=== PATIENT | female | born 1970 | race Caucasian/White ===

== ENCOUNTER 2016-08-04 01:36 | Inpatient (IN) | payer BC, MEDICAID ==
[2016-08-04] MEDS ORDERED: Sodium Chloride 0.9% 1,000 ML IV ONE ×4 (01:55→13:56)
[2016-08-04] MEDS ORDERED: Sodium Chloride 0.9% 1,000 ML ONE ×2 (02:02→07:59)
[2016-08-04] MEDS ORDERED: Morphine 4 MG/ML VIAL ONE ×2 (02:02→02:47)
[2016-08-04 02:06] LABS: BASO # 0.1 K/uL (0.0-0.2); BASO % 0.6 % (0.0-2.0); EOS # 0.2 K/uL (0.0-0.7); EOS % 1.7 % (0.0-4.0); HEMATOCRIT 39.4 % (34.0-47.0); LYMPH % 27.9 % (20.0-40.0); MEAN CELL VOLUME 84.9 fL (81.0-99.0); MEAN CORPUSCULAR HEMOGLOBIN 28.1 pg (27.0-31.0); MEAN CORPUSCULAR HGB CONC 33.1 g/dL (33.0-37.0); MEAN PLATELET VOLUME 8.9 fL (7.2-11.7); MONO # 0.5 K/uL (0.0-0.8); RED CELL DISTRIBUTION WIDTH 13.2 % (11.5-14.5); WHITE BLOOD COUNT 10.7 K/uL (4.8-10.8)
[2016-08-04] MEDS ORDERED: Oxycodone/Acetaminophen 5/325 mg Tab ONE (02:13)
[2016-08-04 02:16] LABS: CHLORIDE 98 mmol/L (98-107); SODIUM 140 mmol/L (132-148)
[2016-08-04 02:17] LABS: POTASSIUM 3.6 mmol/L (3.6-5.2)
[2016-08-04 02:19] LABS: ALB/GLOB RATIO 1.4 (1.0-2.1); ALKALINE PHOSPHATASE 70 U/L (38-126); ALT/SGPT 20 U/L (9-52); AST/SGOT 22 U/L (14-36); BILIRUBIN,TOTAL 0.5 mg/dL (0.2-1.3); BLOOD UREA NITROGEN 15 mg/dL (7-17); CALCIUM 9.6 mg/dl (8.6-10.4); CARBON DIOXIDE 27 mmol/L (22-30); GFR AFRICAN-AMERICAN > 60; GLUCOSE,RANDOM 156 mg/dL (65-105); TOTAL PROTEIN 8.2 g/dL (6.3-8.3)
[2016-08-04] MEDS ORDERED: Oxycodone/Acetaminophen 5/325 mg Tab PO STA (02:25)
[2016-08-04] MEDS ORDERED: Morphine 4 MG/ML VIAL IVP ONE (02:50)
[2016-08-04] MEDS ORDERED: Iodixanol 320 mg/ml 150 ml Bottle IV ONE (03:07)
[2016-08-04] MEDS ORDERED: HYDROmorphone 1 mg/ml ISec IVP STA ×5 (04:12→14:40)
[2016-08-04] MEDS ORDERED: HYDROmorphone 1 mg/ml ISec ONE ×5 (04:29→15:04)
--- NOTE | 2016-08-04 04:39 | C.PDOC ---
History Of Present Illness Patient is a 46 year old female who presents to the ER with a complaint of abdominal pain and 1 episode of vomiting that began today. Patient states she was seen in [facility] for abdominal pain where she was diagnosed with a 7cm ovarian cyst. Patient was scheduled to have cyst removed, however, she signed out AMA. Patient reports a bowel movement today that she describes as "hard", and notes she has a PMHx of constipation. Pt notes that she felt well when she left the hospital but increased abd pain in the last hour. Denies nausea, fever, or diarrhea. Time Seen by Provider: 08/04/16 01:47 Chief Complaint (Nursing): Abdominal Pain History Per: Patient History/Exam Limitations: no limitations Onset/Duration Of Symptoms: Hrs (Began today) Current Symptoms Are (Timing): Still Present Context: Other (Not known) Location Of Pain/Discomfort: Diffuse Radiation Of Pain To:: None Quality Of Discomfort: Unable To Describe Associated Symptoms: Vomiting. denies: Fever, Chills, Nausea, Diarrhea Exacerbating Factors: None Alleviating Factors: None Last Bowel Movement: Today Recent travel outside of the [place]: No Past Medical History Reviewed: Historical Data, Nursing Documentation, Vital Signs Vital Signs: Last Vital Signs Temp Pulse 106 H 08/04/16 06:50 Resp 20 08/04/16 06:50 BP 120/85 08/04/16 06:50 Pulse Ox 98 08/04/16 06:50 - Medical History PMH: Hypothyroidism Surgical History: No Surg Hx Family History: States: Unknown Family Hx - Social History Hx Alcohol Use: No Hx Substance Use: No Review Of Systems Constitutional: Negative for: Fever, Chills Gastrointestinal: Positive for: Vomiting, Abdominal Pain. Negative for: Nausea , Diarrhea Physical Exam - Physical Exam Appears: Non-toxic, Other (Painful distress) Skin: Normal Color, Warm, Dry Head: Atraumatic, Normacephalic Eye(s): bilateral: Normal Inspection, EOMI Nose: Normal Oral Mucosa: Moist Neck: Normal, Normal ROM, Supple Chest: Symmetrical, No Tenderness Cardiovascular: Rhythm Regular Respiratory: Normal Breath Sounds, No Accessory Muscle Use, Other (Speaking in complete sentences) Gastrointestinal/Abdominal: Soft, Tenderness (Diffusely), Distention Neurological/Psych: Oriented x3, Normal Speech, Other (No focal deficits) ED Course And Treatment - Laboratory Results Result Diagrams: 08/04/16 02:02 08/04/16 02:02 O2 Sat by Pulse Oximetry: 96 (Room air) Pulse Ox Interpretation: Normal Progress Note: Dilaudid IVP, Morphine IVP, zofran IVP, percocet PO, and IV fluids administered. Urinalysis and abd/pel CT w/ IV contrast ordered. Discussed with Dr. Santa who request an US. Disposition - Disposition Disposition Time: 06:53 Condition: STABLE - Clinical Impression Clinical Impression: Abdominal pain, Ovarian cyst - Scribe Statement The provider has reviewed the documentation as recorded by the Scribe Matthew Shea All medical record entries made by the Scribe were at my direction and personally dictated by me. I have reviewed the chart and agree that the record accurately reflects my personal performance of the history, physical exam, medical decision making, and the department course for this patient. I have also personally directed, reviewed, and agree with the discharge instructions and disposition. Physician Patient Turnover Patient Signed Over To: Dilma Wong Handoff Comments: Pending US, reevaluation and disposition.
--- NOTE | 2016-08-04 06:24 | CT ---
EXAM: CT Abdomen and Pelvis With Intravenous Contrast CLINICAL HISTORY: 46 years old, female; Pain; Abdominal pain and other: Ho. Ca; Additional info: Abd pain TECHNIQUE: Axial computed tomography images of the abdomen and pelvis with intravenous contrast. This CT exam was performed using one or more of the following dose reduction techniques: automated exposure control, adjustment of the mA and/or kV according to patient size, and/or use of iterative reconstruction technique. Coronal and sagittal reformatted images were created and reviewed. CONTRAST: 100 mL of administered intravenously. EXAM DATE/TIME: 08/04/2016 1:56 AM COMPARISON: No relevant prior studies available. FINDINGS: LOWER THORAX: Small amount of dense consolidation in the right lung base posteriorly, most likely representing dependent atelectasis. ABDOMEN: LIVER: Fatty infiltration of the liver. No focal lesions seen. GALLBLADDER AND BILE DUCTS: No CT evidence of acute cholecystitis. No evidence of significant biliary ductal dilatation. PANCREAS: No CT evidence of acute pancreatitis. SPLEEN: No acute abnormality of the spleen identified. ADRENALS: No acute abnormality of the adrenal glands identified. KIDNEYS AND URETERS: No acute abnormality of the kidneys identified. No evidence of significant hydrouereteronephrosis. STOMACH AND BOWEL: There is mild dilatation of a few distal ileal small bowel loops, in the the right lower quadrant. There is no definite single abrupt transition point seen in the small bowel. There is no evidence of diffuse small bowel dilatation. No definite decompressed small bowel loops are seen. Findings are most likely due to a mild ileus of the small bowel. Otherwise, no significant abnormality of the bowel is identified. No evidence of pneumatosis intestinalis. No acute abnormality of the colon identified. No acute abnormality of the stomach or duodenum identified. APPENDIX: Appendix is seen, and is within normal limits in appearance. PELVIS: BLADDER: No acute abnormality of the bladder identified. REPRODUCTIVE: Enlargement of the left adnexal soft tissues, suspected to be secondary to a left adnexal mass, measuring up to 6.0 x 4.5 cm. This has a CT attenuation of 30 Hounsfield units, higher than expected for a simple cyst, and is suspicious for a complex cystic lesion. There is no associated gas. No evidence of significant right adnexal masses. No acute abnormality of the uterus identified. ABDOMEN and PELVIS: INTRAPERITONEAL SPACE: Small to moderate amount of free fluid, primarily located in the right abdomen. No evidence of free air. BONES/JOINTS: No acute fractures or other acute bony abnormality noted. VASCULATURE: No evidence of abdominal aortic aneurysm. No evidence of periaortic hemorrhage. LYMPH NODES: No evidence of diffuse lymphadenopathy. IMPRESSION: - Moderate abdominal and pelvic free fluid, primarily in the right abdomen. - Findings suspicious for a complex cystic 6 cm left ovarian/adnexal lesion. Pelvic ultrasound is recommended for further evaluation, unless otherwise clinically indicated. - Small bowel findings which are most likely due to a mild ileus of the small bowel. There is no evidence of a high grade or diffuse SBO. - See above for remaining findings.
--- NOTE | 2016-08-04 09:19 | US ---
Pelvic ultrasound History: Pelvic pain. Comparison: None available. Technique: Real-time sonography was performed through the pelvis utilizing transabdominal and transvaginal techniques. Findings: Uterus: 7.4 x 2.7 x 3.6 centimeters. Heterogeneous echotexture. Anteverted. Endometrium measures 1.03 centimeters. Right ovary: 3.4 x 1.5 x 2.9 centimeters. Normal flow. Left ovary: Enlarged measuring 6.3 x 6.2 x 6.3 centimeters. Normal flow. At the level of the left adnexa/ovary, there is a large ill-defined hypoechoic focus measuring 4.9 x 2.3 x 5.1 centimeters containing internal echoes and peripheral nodularity. This is of uncertain clinical etiology and may represent a complex ovarian cystic lesion versus possible tubo-ovarian abscess versus additional etiology. Clinical correlation and or correlation with CT or MR may be helpful for further evaluation if clinically indicated. Free fluid noted within the pelvis. Impression: Enlarged left ovary measuring 6.3 x 6.2 x 6.3 centimeters. Normal flow. At the level of the left adnexa/ovary, there is a large ill-defined hypoechoic focus measuring 4.9 x 2.3 x 5.1 centimeters containing internal echoes and peripheral nodularity. This is of uncertain clinical etiology and may represent a complex ovarian cystic lesion versus possible tubo-ovarian abscess versus additional etiology. Clinical correlation and or correlation with CT or MR may be helpful for further evaluation if clinically indicated. Free fluid noted within the pelvis.
[2016-08-04 10:58] LABS: RBC URINE 8 /hpf (0-3); URINE BILIRUBIN NEGATIVE (NEGATIVE); URINE BLOOD NEGATIVE (NEGATIVE); URINE COLOR Yellow (YELLOW); URINE GLUCOSE (UA) 3+ mg/dL (Normal); URINE KETONE 1+ mg/dL (NEGATIVE); URINE LEUKOCYTE ESTERASE NEG Leu/uL (Negative); URINE PROTEIN NEGATIVE (NEGATIVE); URINE UROBILINOGEN NORMAL mg/dL (0.2-1.0); WBC URINE 1 /hpf (0-5)
--- NOTE | 2016-08-04 11:09 | CP.PCM.CON ---
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 The patient is , and had not been sexually active in 8-10 years until a new sexual partner 2 weeks ago. The patient notes that she began taking OCPs 4 days ago. The patient recently signed AMA from [facility] in [facility] when told she would be surgery for her left ovaian cyst. The patient states that she was scared of having an operation as the reason for her AMA. The patient notes that the pain increase with movement and respiration. She used ibuprofen at home without relief. The patient notes marked distension of her abdomen as well. In addition, she reports constipation and 1 episode of non bilious, non blood emesis. Aside from the abdominal pain, the patient denies all other complaints. The patient denies fever, chills, weight changes, headache, chest pain, palpitations, SOB, cough, and extremity paresthesias/ weakness. OB Hx: , Menarche 14, FDLMP 07/28/16. Cycle 30 days with 5 days of menstruation - Mammo- 2 weeks ago, negative - Last Pap- 1 week ago, negative (prior negative as well) - No history of STIs - Sexually active 2 weeks ago PMH: endometriosis, DM2, Thyroic Ca (s/p resection, chemo, radiation), HTN, HLD , ANIL, and asthma Surg: Thyroid Resection (2016), Laparoscopic Surgery for endometriosis implant ablations Allergy: Naproxed (anaphylaxis), Penicillin (rash) Family: Maternal and Paternal heart disease, HTN, and DM Social: Former smoker, social alcohol use, denies illicit drugs Review of Systems - Review of Systems All systems: reviewed and no additional remarkable complaints except - Constitutional Constitutional: absent: Chills, Fatigue, Fever, Weight Loss - EENT Eyes: absent: Blind Spots, Blurred Vision Nose/Mouth/Throat: absent: Nose Pain, Facial Pain, Neck Pain - Cardiovascular Cardiovascular: absent: Chest Pain, Lightheadedness, Palpitations, Paroxysmal Nocturnal Dyspnea, Syncope - Respiratory Respiratory: Dyspnea. absent: Cough, Dyspnea on Exertion - Gastrointestinal Gastrointestinal: Abdominal Pain, Constipation, Vomiting (1 episode), Other ( distension). absent: Diarrhea, Hematemesis, Hematochezia, Nausea - Genitourinary Genitourinary: absent: Change in Urinary Stream, Difficulty Urinating - Musculoskeletal Musculoskeletal: absent: Arthralgias, Myalgias, Stiffness, Tingling - Integumentary Integumentary: absent: Lesions, Rash, Wounds - Neurological Neurological: absent: Memory Loss, Sensory Deficit, Syncope, Tingling, Tremor, Vertigo, Weakness - Endocrine Endocrine: absent: Cold Intolorance, Heat Intolorance, Polydipsia, Polyphagia Past Patient History - Past Social History Smoking Status: Never Smoked - ENDOCRINE/METABOLIC Hx Hypothyroidism: Yes - PSYCHIATRIC Hx Substance Use: No - SURGICAL HISTORY Hx Surgeries: Yes Other/Comment: PT REPORTED "IM IN TOO MUCH PAIN TO ANSWER" Meds Allergies/Adverse Reactions: Allergies Allergy/AdvReac Type Severity Reaction Status Date / Time naproxen [From Aleve] Allergy Verified 08/04/16 01:42 Penicillins Allergy Verified 08/04/16 01:42 Physical Exam - Constitutional Appears: Toxic, In Acute Distress - Head Exam Head Exam: ATRAUMATIC, NORMAL INSPECTION, NORMOCEPHALIC - Eye Exam Eye Exam: EOMI, Normal appearance Pupil Exam: NORMAL ACCOMODATION - ENT Exam ENT Exam: Mucous Membranes Moist - Neck Exam Neck exam: Positive for: Full Rom. Negative for: Lymphadenopathy, Tenderness - Respiratory Exam Respiratory Exam: Clear to Auscultation Bilateral, NORMAL BREATHING PATTERN. absent: Rales, Rhonchi, Wheezes, Stridor Additional comments: tachypneic - Cardiovascular Exam Cardiovascular Exam: REGULAR RHYTHM, RRR, +S1, +S2. absent: Diastolic murmur, Systolic Murmur - GI/Abdominal Exam GI & Abdominal Exam: Distended, Firm, Guarding, Normal Bowel Sounds, Tenderness. absent: Rebound, Rigid, Soft - Extremities Exam Extremities exam: Positive for: normal capillary refill, normal inspection, pedal pulses present - Neurological Exam Neurological exam: Alert, CN II-XII Intact, Oriented x3 - Skin Skin Exam: Dry, Intact, Normal Color, Warm Results - Vital Signs Recent Vital Signs: Last Vital Signs Temp 99.2 F 08/04/16 08:44 Pulse 115 H 08/04/16 08:44 Resp 20 08/04/16 08:44 BP 117/83 08/04/16 08:44 Pulse Ox 95 08/04/16 08:44 - Labs Result Diagrams: 08/04/16 11:51 08/04/16 02:02 Labs: Laboratory Results - last 24 hr 08/04/16 08/04/16 08/04/16 02:02 02:02 03:36 WBC 10.7 RBC 4.64 Hgb 13.0 Hct 39.4 MCV 84.9 MCH 28.1 MCHC 33.1 RDW 13.2 Plt Count 382 MPV 8.9 Neut % (Auto) 64.8 Lymph % (Auto) 27.9 Pike % (Auto) 5.0 Eos % (Auto) 1.7 Baso % (Auto) 0.6 Neut # 6.9 Lymph # 3.0 Pike # 0.5 Eos # 0.2 Baso # 0.1 Sodium 140 Potassium 3.6 Chloride 98 Carbon Dioxide 27 Anion Gap 18 BUN 15 Creatinine 0.7 Est GFR ( Amer) > 60 Est GFR (Non-Af Amer) > 60 Random Glucose 156 H Calcium 9.6 Total Bilirubin 0.5 AST 22 ALT 20 Alkaline Phosphatase 70 Total Protein 8.2 Albumin 4.8 Globulin 3.4 Albumin/Globulin Ratio 1.4 Lipase 116 Beta HCG, Quant < 2.39 Urine HCG, Qual 08/04/16 10:36 WBC RBC Hgb Hct MCV MCH MCHC RDW Plt Count MPV Neut % (Auto) Lymph % (Auto) Pike % (Auto) Eos % (Auto) Baso % (Auto) Neut # Lymph # Pike # Eos # Baso # Sodium Potassium Chloride Carbon Dioxide Anion Gap BUN Creatinine Est GFR ( Amer) Est GFR (Non-Af Amer) Random Glucose Calcium Total Bilirubin AST ALT Alkaline Phosphatase Total Protein Albumin Globulin Albumin/Globulin Ratio Lipase Beta HCG, Quant Urine HCG, Qual Negative Assessment & Plan (1) Abdominal pain Assessment and Plan: Likely 2/2 to Tubo-ovarian Abscess vs Endometrioma vs Ileus Pain Control- Dilaudid 1mg Q3 PRN pain (8-10) Zosyn 3.375g IV q6 Flagyl 500mg IV q8 Incentive spirometry General Surgery Consult- recs appreciated AM Labs: CBC/CMP/Mag/Phos/PT/PTT Activity: Up ad Tracy NPO Except Medications IVF NS @ 100ml/hr Zofran 4mg IV q6 PRN Nausea Insulin Sliding Scale Medium Continue Levothyroxine 112mcg PO Xanax 0.25mg PO HS PRN anxiety Respiratory Therapy Order for CPAP at night Urine for GC/Chlamydia ordered Cefotetan and Azithromycin given in ED 08/04/16 Blood and Urine Cultures Pending 08/04/16 UA- negative for leukocyte esterase and nitrates 08/04/16 Trans Vaginal US- enlarged left ovary 6.3 x 6.2 x 6.3cm. Normal flow. Large ill-defined hypoechoic focus 4.9 x 2.3 x 5.1cm 08/04/16 CT A/P- moderate abdominal pelvic free fluid (Right side), complex cyst 6cm left ovarian/adnexal lesion. Small bowel findings most likely 2/2 to ileus Status: Acute (2) Endometrioma of ovary Status: Suspected (3) Tubo-ovarian abscess Status: Suspected (4) Ileus Status: Suspected - Date & Time Date: 08/04/16 Time: 15:49
[2016-08-04 11:57] LABS: BASO % 0.1 % (0.0-2.0); HEMATOCRIT 36.2 % (34.0-47.0); LYMPH # 0.7 K/uL (1.0-4.3); LYMPH % 3.3 % (20.0-40.0); MEAN CELL VOLUME 85.7 fL (81.0-99.0); MEAN CORPUSCULAR HEMOGLOBIN 28.1 pg (27.0-31.0); MEAN CORPUSCULAR HGB CONC 32.9 g/dL (33.0-37.0); MEAN PLATELET VOLUME 8.8 fL (7.2-11.7); MONO # 0.6 K/uL (0.0-0.8); MONO % 2.8 % (0.0-10.0); PLATELET COUNT 335 K/uL (130-400); RED CELL DISTRIBUTION WIDTH 13.4 % (11.5-14.5); WHITE BLOOD COUNT 21.3 K/uL (4.8-10.8)
[2016-08-04 12:41] LABS: NEUTROPHIL 66 % (50-75); TOTAL CELLS COUNTED 100
[2016-08-04] MEDS ORDERED: Azithromycin 500 MG in Sodium Chloride 0.9% 250 ML IVPB STA (12:42)
[2016-08-04] MEDS ORDERED: Azithromycin 500mg/250ML NS 500 MG/250 ML BAG IVPB ONE (12:49)
[2016-08-04] MEDS ORDERED: cefOXitin IV 2 gm in Dextrose 2 GM/50 ML BAG IVPB ONE (12:59)
[2016-08-04] MEDS ORDERED: Sodium Chloride 0.9% 2,000 ML ONE (14:16)
[2016-08-04] MEDS ORDERED: Levothyroxine 112 MCG TAB PO STA (14:58)
[2016-08-04 15:02] LABS: INR 1.1
[2016-08-04 15:14] LABS: PHOSPHOROUS 4.5 mg/dL (2.5-4.5)
[2016-08-04 15:15] LABS: MAGNESIUM 1.7 mg/dL (1.6-2.3)
--- NOTE | 2016-08-04 15:22 | CP.PCM.CON ---
History of Present Illness - History of Present Illness History of Present Illness: GENERAL SURGERY CONSULT NOTE FOR DR. BECERRA 46yo F with PMHx of endometriosis, DM, HTN, GERD, thyroid cancer s/p resection, chemo, radiation presents to the ED with abdominal pain. The pain began 2 weeks ago. She was seen at [facility] in [facility] about 2 days ago where she was told she needed surgery for her left ovarian cyst. She was scared of having surgery so she left AMA. The pain got worse last night around 7-8PM yesterday. She vomited once last night, non bloody, non bilious. She denies diarrhea. Last BM was yesterday and last flatus was this morning. She reports being bloated. Of note, she has been taking 2 ibuprofen pills Q4 hours for 2 weeks due to her abdominal pain. PMH: endometriosis, DM, Thyroid Cancer (s/p resection, chemo, radiation), HTN, HLD, ANIL, asthma, constipation and GERD Surg: Thyroid Resection (2016), Laparoscopic Surgery for endometriosis implant ablations, back surgery Allergy: Naproxed (anaphylaxis), Penicillin (rash) Social: Former smoker, social alcohol use, denies illicit drugs Review of Systems - Review of Systems Review of Systems: as per HPI Past Patient History - Past Social History Smoking Status: Never Smoked - ENDOCRINE/METABOLIC Hx Hypothyroidism: Yes - PSYCHIATRIC Hx Substance Use: No - SURGICAL HISTORY Hx Surgeries: Yes Other/Comment: PT REPORTED "IM IN TOO MUCH PAIN TO ANSWER" Meds Allergies/Adverse Reactions: Allergies Allergy/AdvReac Type Severity Reaction Status Date / Time naproxen [From Aleve] Allergy Verified 08/04/16 01:42 Penicillins Allergy Verified 08/04/16 01:42 Physical Exam - Constitutional Appears: No Acute Distress - Eye Exam Eye Exam: EOMI, Normal appearance - Respiratory Exam Respiratory Exam: NORMAL BREATHING PATTERN. absent: Respiratory Distress - Cardiovascular Exam Cardiovascular Exam: Tachycardia, +S1, +S2 - GI/Abdominal Exam GI & Abdominal Exam: Distended, Soft, Tenderness (diffusely tender, more in RUQ , RLQ, LLQ). absent: Firm, Guarding, Rebound, Rigid - Extremities Exam Extremities exam: Positive for: normal inspection. Negative for: calf tenderness - Neurological Exam Neurological exam: Alert, CN II-XII Intact, Oriented x3 - Psychiatric Exam Psychiatric exam: Normal Affect, Normal Mood - Skin Skin Exam: Dry, Normal Color, Warm Results - Vital Signs Recent Vital Signs: Last Vital Signs Temp 99.4 F 08/04/16 15:02 Pulse 121 H 08/04/16 15:02 Resp 27 H 08/04/16 15:02 BP 152/95 H 08/04/16 15:02 Pulse Ox 98 08/04/16 15:02 - Labs Result Diagrams: 08/04/16 11:51 08/04/16 02:02 Labs: Laboratory Results - last 24 hr 08/04/16 08/04/16 14:48 14:48 PT 12.4 H INR 1.1 APTT 32 Phosphorus 4.5 Magnesium 1.7 Assessment & Plan - Assessment and Plan (Free Text) Assessment: 46yo F with PMHx of endometriosis, DM, HTN, GERD, thyroid cancer s/p resection, chemo, radiation presents to the ED with abdominal pain - Afebrile, mildly tachycardic - WBC 10.7 on arrival, 21.3 later in the day - neg - CT: No free air, moderate abdominal and pelvic free fluid, primarily in right abdomen, findings suspicious for complex 6cm left ovarian/adnexal lesion, mild dilation of few distal ileal small bowel loops in RLQ, no definite transition point, no decompressed bowel loops seen, possible mild ileus - Pelvis/transvag US: enlarged left ovary, normal flow, possible complex ovarian cystic lesion vs possible tubo-ovarian abscess, free fluid in pelvis - Patient passing flatus and had BM yesterday - Abdominal pain appears to be coming from ovary, will defer to gynecology for further management - Discussed plan with Dr. Nixon Fischer PGY-2
[2016-08-04] MEDS: Sodium Chloride 0.9% 1,000 ML IV SCH (15:45)
--- NOTE | 2016-08-04 16:28 | CP.PCM.HP ---
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 The patient is , and had not been sexually active in 8-10 years until a new sexual partner 2 weeks ago. The patient notes that she began taking OCPs 4 days ago. The patient recently signed AMA from [facility] when told she would be surgery for her left ovaian cyst. The patient states that she was scared of having an operation as the reason for her AMA. The patient notes that the pain increase with movement and respiration. She used ibuprofen at home without relief. The patient notes marked distension of her abdomen as well. In addition, she reports constipation and 1 episode of non bilious, non blood emesis. Aside from the abdominal pain, the patient denies all other complaints. The patient denies fever, chills, weight changes, headache, chest pain, palpitations, SOB, cough, and extremity paresthesias/ weakness. OB Hx: , Menarche 14, FDLMP 07/28/16. Cycle 30 days with 5 days of menstruation - Mammo- 2 weeks ago, negative - Last Pap- 1 week ago, negative (prior negative as well) - No history of STIs - Sexually active 2 weeks ago PMH: endometriosis, DM2, Thyroic Ca (s/p resection, chemo, radiation), HTN, HLD , ANIL, and asthma Surg: Thyroid Resection (2016), Laparoscopic Surgery for endometriosis implant ablations Allergy: Naproxed (anaphylaxis), Penicillin (rash) Family: Maternal and Paternal heart disease, HTN, and DM Social: Former smoker, social alcohol use, denies illicit drugs Present on Admission - Present on Admission Any Indicators Present on Admission: No History of DVT/PE: No History of Uncontrolled Diabetes: No Urinary Catheter: No Decubitus Ulcer Present: No Review of Systems - Hematologic/Lymphatic Additional comments: - Review of Systems All systems: reviewed and no additional remarkable complaints except - Constitutional Constitutional: absent: Chills, Fatigue, Fever, Weight Loss - EENT Eyes: absent: Blind Spots, Blurred Vision Nose/Mouth/Throat: absent: Nose Pain, Facial Pain, Neck Pain - Cardiovascular Cardiovascular: absent: Chest Pain, Lightheadedness, Palpitations, Paroxysmal Nocturnal Dyspnea, Syncope - Respiratory Respiratory: Dyspnea. absent: Cough, Dyspnea on Exertion - Gastrointestinal Gastrointestinal: Abdominal Pain, Constipation, Vomiting (1 episode), Other ( distension). absent: Diarrhea, Hematemesis, Hematochezia, Nausea - Genitourinary Genitourinary: absent: Change in Urinary Stream, Difficulty Urinating - Musculoskeletal Musculoskeletal: absent: Arthralgias, Myalgias, Stiffness, Tingling - Integumentary Integumentary: absent: Lesions, Rash, Wounds - Neurological Neurological: absent: Memory Loss, Sensory Deficit, Syncope, Tingling, Tremor, Vertigo, Weakness - Endocrine Endocrine: absent: Cold Intolorance, Heat Intolorance, Polydipsia, Polyphagia Past Patient History - Past Social History Smoking Status: Never Smoked - ENDOCRINE/METABOLIC Hx Hypothyroidism: Yes - PSYCHIATRIC Hx Substance Use: No - SURGICAL HISTORY Hx Surgeries: Yes Other/Comment: PT REPORTED "IM IN TOO MUCH PAIN TO ANSWER" Meds Allergies/Adverse Reactions: Allergies Allergy/AdvReac Type Severity Reaction Status Date / Time naproxen [From Aleve] Allergy Verified 08/04/16 01:42 Penicillins Allergy Verified 08/04/16 01:42 Physical Exam - Additional Findings Additional findings: - Constitutional Appears: Toxic, In Acute Distress - Head Exam Head Exam: ATRAUMATIC, NORMAL INSPECTION, NORMOCEPHALIC - Eye Exam Eye Exam: EOMI, Normal appearance Pupil Exam: NORMAL ACCOMODATION - ENT Exam ENT Exam: Mucous Membranes Moist - Neck Exam Neck exam: Positive for: Full Rom. Negative for: Lymphadenopathy, Tenderness - Respiratory Exam Respiratory Exam: Clear to Auscultation Bilateral, NORMAL BREATHING PATTERN. absent: Rales, Rhonchi, Wheezes, Stridor Additional comments: tachypneic - Cardiovascular Exam Cardiovascular Exam: REGULAR RHYTHM, RRR, +S1, +S2. absent: Diastolic murmur, Systolic Murmur - GI/Abdominal Exam GI & Abdominal Exam: Distended, Firm, Guarding, Normal Bowel Sounds, Tenderness. absent: Rebound, Rigid, Soft - Extremities Exam Extremities exam: Positive for: normal capillary refill, normal inspection, pedal pulses present - Neurological Exam Neurological exam: Alert, CN II-XII Intact, Oriented x3 - Skin Skin Exam: Dry, Intact, Normal Color, Warm Results - Vital Signs Recent Vital Signs: Last Vital Signs Temp 99.4 F 08/04/16 15:02 Pulse 121 H 08/04/16 15:02 Resp 27 H 08/04/16 15:02 BP 152/95 H 08/04/16 15:02 Pulse Ox 98 08/04/16 15:02 - Labs Result Diagrams: 08/04/16 11:51 08/04/16 02:02 Labs: Laboratory Results - last 24 hr 08/04/16 08/04/16 14:48 14:48 PT 12.4 H INR 1.1 APTT 32 Phosphorus 4.5 Magnesium 1.7 Assessment & Plan (1) Abdominal pain Assessment and Plan: Likely 2/2 to Tubo-ovarian Abscess vs Endometrioma vs Ileus Pain Control- Dilaudid 1mg Q3 PRN pain (8-10) Zosyn 3.375g IV q6 Flagyl 500mg IV q8 Incentive spirometry General Surgery Consultation- recs appreciated AM Labs: CBC/CMP/Mag/Phos/PT/PTT Activity: Up ad Tracy NPO Except Medications IVF NS @ 100ml/hr Zofran 4mg IV q6 PRN Nausea Insulin Sliding Scale Medium Accucheck ACHS Continue Levothyroxine 112mcg PO daily Hold Metformin Xanax 0.25mg PO HS PRN anxiety Respiratory Therapy Order for CPAP at night Internal Medicine Consultation Placed (Dr. Michaels)- recs appreciated Urine for GC/Chlamydia ordered Cefotetan and Azithromycin given in ED 08/04/16 Blood and Urine Cultures Pending 08/04/16 UA- negative for leukocyte esterase and nitrates 08/04/16 Trans Vaginal US- enlarged left ovary 6.3 x 6.2 x 6.3cm. Normal flow. Large ill-defined hypoechoic focus 4.9 x 2.3 x 5.1cm 08/04/16 CT A/P- moderate abdominal pelvic free fluid (Right side), complex cyst 6cm left ovarian/adnexal lesion. Small bowel findings most likely 2/2 to ileus Case Discussed with Dr. Mauricio Girard PGY1 Status: Acute (2) Tubo-ovarian abscess Status: Suspected (3) Endometrioma of ovary Status: Suspected (4) Ileus Status: Suspected (5) Endometriosis Assessment and Plan: s/p laparoscopic ablations Status: Acute (6) HTN (hypertension) Assessment and Plan: currently normotensive continue to monitor Status: Chronic (7) Diabetes mellitus type 2 in nonobese Assessment and Plan: insulin sliding scale ordered HOLD metformin acucheck ACHS Status: Acute (8) ANIL (obstructive sleep apnea) Assessment and Plan: patient reports use of CPAP at home respiratory therapist consult placed for CPAP device Status: Acute (9) Hyperlipidemia associated with type 2 diabetes mellitus Status: Acute (10) Hypothyroidism (acquired) Assessment and Plan: continue levothyroxine 112mcg PO Daily Status: Acute - Date & Time Date: 08/04/16 Time: 16:28 Decision To Admit - Pt Status Changed To: Hospital Disposition Of: Inpatient - Admit Certification Admit to Inpatient:: After my assessment, the patient will require hospitalization for at least two midnights. This is because of the severity of symptoms shown, intensity of services needed, and/or the medical risk in this patient being treated as an outpatient. - InPatient: Physician Admission Certification:: The patient will require more than 2 midnights of treatment for her current symptoms. She will me managed on the med -surg floor for her abdominal pain. - . Bed Request Type: Regular Admitting Physician: Violeta Martínez <Violeta Martínez - Last Filed: 08/04/16 19:12> Results - Vital Signs Recent Vital Signs: Last Vital Signs Temp 99.4 F 08/04/16 15:02 Pulse 121 H 08/04/16 15:02 Resp 27 H 08/04/16 15:02 BP 152/95 H 08/04/16 15:02 Pulse Ox 98 08/04/16 15:02 - Labs Result Diagrams: 08/04/16 11:51 08/04/16 02:02 Labs: Laboratory Results - last 24 hr 08/04/16 08/04/16 08/04/16 14:48 14:48 16:48 PT 12.4 H INR 1.1 APTT 32 POC Glucose (mg/dL) 88 Phosphorus 4.5 Magnesium 1.7 Attending/Attestation - Attestation I have personally seen and examined this patient.: Yes I have fully participated in the care of the patient.: Yes I have reviewed all pertinent clinical information: Yes Notes (Text): 08/04/16 18:23 Patient received in E.D. cubicle 8B iat approximately 1345 hours. I agree with the documentation of events as above by Dr. Girard. Patient in pain, pain scale 7/10. Patient is hungry. Denies nausea, vomiting or BM since in E.D. Addendum to history: Patient was seen by primary carry in worker 2 weeks ago - Pap smear obtained; mammogram and pelvic ultrasound ordered. Ultrasound returned with finding of 6cm left adnexal mass, which was thought this to be an endometrioma. OCs were presecibed to "shrink it"; patient started them the Sunday after her LMP of 07/28/16 (4 days ago). Pap test and mammogram reportedly negative. Rest of HPI as above. P.E.: as documented by Dr. Girard as above. Abdomen: Softly distended. (+) BS. Healed umbilical scar. (+) LLQ tenderness. No rebound tenderness; (+) guarding. Bimanual: vagina is hot. (+) cervical motion tenderness; (+) left adnexal fullness with tenderness. +/_ uterine and right adnexal tenderness. (+) thick white discharge - no odor. Extremities: no calf tenderness; full ROM All laboratory date, and imaging reports reviewed by me personally - significant for: 1) WBC 21.3 (Increase from 10.7 on initial presentation) 2) H/H 11.9/34 (decreased from 12.1 on initial presentation) 3) TV (pelvic) ultrasound: enlarged left ovary 6.3 x 6.2 x 6.3 cm; normal flow. At level of left ovary 4.9 x 2.3 x 5.1 cm, ill-defined, hypoechoic focus with internal echoes and peripheral nodularity. Free fluid within the pelvis. Uterus 7.4 x 2.7 x 3.6 cm; anteverted. Right ovary 3.4 x 1.5 x 2.9 cm; normal flow. 4) CT scan: moderate abdominal and pelvic free fluid, primarily in the right abdomen. Complex cystic 6 cm left ovarian/adnexal lesion. Mild ileus of the small bowel. No evidence of high grade or diffuse SBO. No evidence of diffuse lymphadenopathy. Appendix seen and within normal limits. Patient counseled extensively as follows: it was explained to patient there are two processes at play - left endometrioma and left tubo-ovarian complex. Will start IV antibiotics, and manage her pain. It was also explained that surgery may be warranted for her endometrioma, but optimally performed after she has been treated for this acute infectious process. Patient expressed an understanding and agrees. All of her questions were answered. Rest of Assessment and Plan as above.
[2016-08-04] MEDS ORDERED: (Novolog) Insulin Aspart, Recombinant 100 u/ml 10 ml vial SC SCH (16:30)
[2016-08-04] MEDS: (Novolog) Insulin Aspart, Recombinant 100 u/ml 10 ml vial SC SCH ×2 (17:15→23:46)
[2016-08-04] MEDS: HYDROmorphone 1 mg/ml ISec IVP PRN ×2 (18:10→21:26)
[2016-08-04] MEDS: Dextrose 5%/0.45% NS 1,000 ML IV SCH (18:11)
[2016-08-04] MEDS: Piperacill/Tazo 3.375gm in Dex 3.375 GM/50 ML BAG IVPB SCH ×2 (18:14→23:44)
[2016-08-04 19:36] LABS: VENOUS BLOOD GAS BASE EXCESS -4.5 mmol/L (0.0-2.0); VENOUS BLOOD GAS PCO2 43 mmHg (40-60); VENOUS BLOOD PH 7.31 (7.32-7.43)
--- NOTE | 2016-08-04 20:17 | CP.PCM.CON ---
<J Luis Uriarte - Last Filed: 08/04/16 20:12> History of Present Illness - History of Present Illness History of Present Illness: CC: abdominal pain HPI: Patient is a 46 year old female with a PMH notable for endometriosis, DM2, Thyroic Ca (s/p resection, chemo, radiation), HTN, HLD, ANIL, and asthma presenting with complaint of abdominal pain for 2 weeks She states it became much worse yesterday evening. She recently signed out AMA from [email or web address] in [facility] when told she was told would need surgery for an ovaian cyst. The patient states that she was scared of having an operation as the reason for her AMA. The patient notes that the pain increases with movement and respiration. She takes ibuprofen at home without relief. The patient notes marked distension of her abdomen as well. In addition, she reports constipation and 1 episode of non bilious, non blood emesis. She denies fever, chills, weight changes, headache, chest pain, palpitations, SOB, cough, and extremity paresthesias/weakness. PMH: endometriosis, DM2, Thyroic Ca (s/p resection, chemo, radiation), HTN, HLD , ANIL, and asthma Surg: Thyroid Resection (2016), Laparoscopic Surgery for endometriosis implant ablations Allergy: Naproxed (anaphylaxis), Penicillin (rash) Family: Maternal and Paternal heart disease, HTN, and DM Social: Former smoker, social alcohol use, denies illicit drugs Review of Systems - Constitutional Constitutional: absent: Chills, Fever, Weakness - EENT Eyes: absent: Change in Vision Ears: absent: Decreased Hearing Nose/Mouth/Throat: absent: Dysphagia, Neck Mass - Cardiovascular Cardiovascular: absent: Chest Pain, Dyspnea - Respiratory Respiratory: absent: Cough, Dyspnea, Hemoptysis - Gastrointestinal Gastrointestinal: Abdominal Pain, Cramping, Nausea. absent: Constipation, Diarrhea, Vomiting - Genitourinary Genitourinary: Dysuria - Musculoskeletal Musculoskeletal: absent: Muscle Weakness, Neck Pain, Numbness, Tingling - Integumentary Integumentary: absent: Lesions, Rash, Wounds - Neurological Neurological: absent: Dizziness, Numbness, Vertigo, Weakness - Psychiatric Psychiatric: absent: Anxiety, Depression - Endocrine Endocrine: Fatigue. absent: Palpitations - Hematologic/Lymphatic Hematologic: absent: Easy Bleeding Past Patient History - Infectious Disease Hx of Infectious Diseases: None - Past Medical History & Family History Past Medical History?: Yes - Past Social History Smoking Status: Former Smoker Alcohol: Occasional Drugs: Denies Home Situation {Lives}: With Family - PULMONARY Hx Asthma: Yes Hx Pneumonia: Yes (Stated she had it 2yrs ago) - ENDOCRINE/METABOLIC Hx Diabetes Mellitus Type 2: Yes Hx Hypothyroidism: Yes - MUSCULOSKELETAL/RHEUMATOLOGICAL Hx Falls: No Hx Herniated Disk: Yes - PSYCHIATRIC Hx Substance Use: No - SURGICAL HISTORY Hx Surgeries: Yes Hx Thyroidectomy: Yes - ANESTHESIA Hx Anesthesia: Yes Hx Anesthesia Reactions: No Hx Malignant Hyperthermia: No Has any member of the family had a problem w/ anesthesia?: No Meds Allergies/Adverse Reactions: Allergies Allergy/AdvReac Type Severity Reaction Status Date / Time naproxen [From Aleve] Allergy Verified 08/04/16 01:42 Penicillins Allergy Verified 08/04/16 01:42 - Medications Medications: Current Medications Alprazolam (Xanax) 0.25 mg PO HS PRN PRN Reason: Anxiety Stop: 08/11/16 15:25 Docusate Sodium (Colace) 100 mg PO BID PRN PRN Reason: Constipation Docusate Sodium (Colace) 100 mg PO BID [facility] Last Admin: 08/04/16 18:20 Dose: 100 mg Hydromorphone HCl (Dilaudid) 1 mg IVP Q3H PRN PRN Reason: Pain, severe (8-10) Last Admin: 08/04/16 18:10 Dose: 1 mg Metronidazole (Flagyl) 500 mg in 100 mls @ 100 mls/hr IVPB Q8 [facility] Piperacillin Sod/Tazobactam Sod (Zosyn 3.375 Gm Iv Premix) 3.375 gm in 50 mls @ 100 mls/hr IVPB Q6H [facility] Last Admin: 08/04/16 18:14 Dose: 100 mls/hr Sodium Chloride (Sodium Chloride 0.9%) 1,000 mls @ 100 mls/hr IV .Q10H [facility] Last Admin: 08/04/16 15:45 Dose: Not Given Dextrose/Sodium Chloride (Dextrose 5%/0.45% Ns 1000 Ml) 1,000 mls @ 100 mls/hr IV .Q10H [facility] Last Admin: 08/04/16 18:11 Dose: 100 mls/hr Insulin Aspart (Novolog) 0 unit SC Q6H [facility] PRN Reason: Protocol Last Admin: 08/04/16 17:15 Dose: Not Given Levothyroxine Sodium (Synthroid) 112 mcg PO 0630 [facility] Ondansetron HCl (Zofran Inj) 4 mg IVP Q6 PRN PRN Reason: Nausea/Vomiting Pneumococcal Polyvalent Vaccine (Pneumovax 23 Vaccine) 0.5 ml IM .ONCE ONE Stop: 08/07/16 10:01 Physical Exam - Head Exam Head Exam: ATRAUMATIC, NORMOCEPHALIC - Eye Exam Eye Exam: EOMI, Normal appearance, PERRL Pupil Exam: NORMAL ACCOMODATION, PERRL - ENT Exam ENT Exam: Mucous Membranes Moist, Normal Oropharynx - Neck Exam Neck exam: Positive for: Normal Inspection. Negative for: Tenderness, Thyromegaly - Respiratory Exam Respiratory Exam: Clear to Auscultation Bilateral, NORMAL BREATHING PATTERN. absent: Rales, Rhonchi, Wheezes - Cardiovascular Exam Cardiovascular Exam: Tachycardia, +S1, +S2. absent: Gallop, Rubs, Systolic Murmur - GI/Abdominal Exam GI & Abdominal Exam: Distended, Firm, Guarding, Normal Bowel Sounds, Tenderness (lower abdomen) - Extremities Exam Extremities exam: Positive for: normal capillary refill, normal inspection, pedal pulses present. Negative for: pedal edema, tenderness - Neurological Exam Neurological exam: Alert, CN II-XII Intact, Oriented x3 - Psychiatric Exam Psychiatric exam: Anxious - Skin Skin Exam: Diaphoretic, Intact, Normal Color Results - Vital Signs Recent Vital Signs: Last Vital Signs Temp 99.4 F 08/04/16 15:02 Pulse 121 H 08/04/16 15:02 Resp 27 H 08/04/16 15:02 BP 152/95 H 08/04/16 15:02 Pulse Ox 98 08/04/16 15:02 - Labs Result Diagrams: 08/04/16 11:51 08/04/16 02:02 Labs: Laboratory Results - last 24 hr 08/04/16 08/04/16 08/04/16 14:45 14:48 14:48 PT 12.4 H INR 1.1 APTT 32 pO2 28 L VBG pH 7.31 L VBG pCO2 43 VBG HCO3 20.0 VBG Total CO2 23.0 VBG O2 Sat (Calc) 56.6 VBG Base Excess -4.5 L VBG Potassium 3.8 Sodium 139.0 Chloride 110.0 H Glucose 109 H Lactate 1.2 POC Glucose (mg/dL) Phosphorus 4.5 Magnesium 1.7 Venous Blood Potassium 3.8 08/04/16 16:48 PT INR APTT pO2 VBG pH VBG pCO2 VBG HCO3 VBG Total CO2 VBG O2 Sat (Calc) VBG Base Excess VBG Potassium Sodium Chloride Glucose Lactate POC Glucose (mg/dL) 88 Phosphorus Magnesium Venous Blood Potassium Assessment & Plan - Assessment and Plan (Free Text) Plan: Abdominal Pain * likely due to tubo-ovarian abscess vs endometrioma vs ileus * CT A/P- moderate abdominal pelvic free fluid (Right side), complex cyst 6cm left ovarian/adnexal lesion. Small bowel findings most likely 2/2 to ileus * Trans Vaginal US- enlarged left ovary 6.3 x 6.2 x 6.3cm. Normal flow. Large ill-defined hypoechoic focus 4.9 x 2.3 x 5.1cm * UA- negative for leukocyte esterase and nitrates * Blood and Urine Cultures Pending * General Surgery Consultation help appreciated * Zosyn and Flagyl started by OB * hold metformin * f/u GC and chlymydia * Pain Control- Dilaudid 1mg Q3 PRN pain (8-10) * F/U MRI abdomen and pelvis HTN * likely secondary to pain * pain control DM * Hold metformin * F/U A1C * accuchecks * sliding scale insulin ANIL * patient reports use of CPAP at home * respiratory therapist consult placed for CPAP device HLD * f/u lipid panel Hypothyroidism * resume home synthroid * f/u TSH and Free T4 Anxiety * Xanax 0.25mg PO HS PRN anxiety PPX: * anticoagulation contraindicated due to possible procedure * protonix * Assessment and plan discussed with attending physician. <Koko Garcia - Last Filed: 08/05/16 16:32> Meds - Medications Medications: Current Medications Albuterol/Ipratropium (Duoneb 3 Mg/0.5 Mg (3 Ml) Ud) 3 ml INH RQ4 [facility] Last Admin: 08/05/16 15:54 Dose: Not Given Alprazolam (Xanax) 0.25 mg PO HS PRN PRN Reason: Anxiety Stop: 08/11/16 15:25 Diphenhydramine HCl (Benadryl) 25 mg IVP Q6 PRN PRN Reason: Itching / Pruritus Docusate Sodium (Colace) 100 mg PO BID PRN PRN Reason: Constipation Docusate Sodium (Colace) 100 mg PO BID [facility] Last Admin: 08/05/16 09:57 Dose: 100 mg Hydromorphone HCl (Dilaudid) 1 mg IVP Q3H PRN PRN Reason: Pain, severe (8-10) Last Admin: 08/05/16 11:18 Dose: 1 mg Hydromorphone HCl (Dilaudid) 0.5 mg IVP Q5M PRN PRN Reason: Pain, moderate (4-7) Stop: 08/05/16 17:25 Metronidazole (Flagyl) 500 mg in 100 mls @ 100 mls/hr IVPB Q8 [facility] Last Admin: 08/05/16 14:00 Dose: Not Given Piperacillin Sod/Tazobactam Sod (Zosyn 3.375 Gm Iv Premix) 3.375 gm in 50 mls @ 100 mls/hr IVPB Q6H [facility] Last Admin: 08/05/16 11:12 Dose: 100 mls/hr Sodium Chloride (Sodium Chloride 0.9%) 1,000 mls @ 100 mls/hr IV .Q10H [facility] Last Admin: 08/05/16 11:47 Dose: Not Given Dextrose/Sodium Chloride (Dextrose 5%/0.45% Ns 1000 Ml) 1,000 mls @ 100 mls/hr IV .Q10H [facility] Last Admin: 08/05/16 14:00 Dose: Not Given Insulin Aspart (Novolog) 0 unit SC Q6H [facility] PRN Reason: Protocol Last Admin: 08/05/16 11:00 Dose: Not Given Levothyroxine Sodium (Synthroid) 112 mcg PO 0630 [facility] Last Admin: 08/05/16 05:44 Dose: 112 mcg Morphine Sulfate/Sodium Chloride (Morphine Insulation Extruder Operator Monoject Barrel) 30 mg IV PRN PRN; Protocol PRN Reason: Pain, moderate (4-7) Stop: 08/06/16 15:34 Ondansetron HCl (Zofran Inj) 4 mg IVP Q6 PRN PRN Reason: Nausea/Vomiting Ondansetron HCl (Zofran Inj) 4 mg IVP ONCE PRN PRN Reason: Nausea/Vomiting Stop: 08/05/16 17:25 Oxycodone/Acetaminophen (Percocet 5/325 Mg Tab) 2 tab PO Q6H PRN PRN Reason: Pain, severe (8-10) Stop: 08/07/16 23:58 Last Admin: 08/05/16 05:45 Dose: 2 tab Oxycodone/Acetaminophen (Percocet 5/325 Mg Tab) 1 tab PO Q4H PRN PRN Reason: Pain, moderate (4-7) Stop: 08/07/16 23:59 Last Admin: 08/05/16 09:58 Dose: 1 tab Pantoprazole Sodium (Protonix Ec Tab) 40 mg PO DAILY [facility] Last Admin: 08/05/16 09:58 Dose: 40 mg Pneumococcal Polyvalent Vaccine (Pneumovax 23 Vaccine) 0.5 ml IM .ONCE ONE Stop: 08/07/16 10:01 Results - Vital Signs Recent Vital Signs: Last Vital Signs Temp 98.8 F 08/05/16 08:00 Pulse 61 08/05/16 08:00 Resp 16 08/05/16 08:00 BP 124/76 08/05/16 08:00 Pulse Ox 98 08/05/16 08:00 - Labs Result Diagrams: 08/04/16 11:51 08/05/16 08:56 Labs: Laboratory Results - last 24 hr 08/04/16 08/04/16 08/04/16 14:45 16:48 23:43 PT INR APTT Puncture Site pCO2 pO2 28 L HCO3 ABG pH ABG Total CO2 ABG O2 Saturation ABG Base Excess ABG Hemoglobin ABG Carboxyhemoglobin POC ABG HHb (Measured) ABG Methemoglobin Yoandy Test ABG Potassium VBG pH 7.31 L VBG pCO2 43 VBG HCO3 20.0 VBG Total CO2 23.0 VBG O2 Sat (Calc) 56.6 VBG Base Excess -4.5 L VBG Potassium 3.8 A-a O2 Difference Respiratory Index Hgb O2 Saturation Sodium 139.0 Chloride 110.0 H Glucose 109 H Lactate 1.2 Liter Flow FiO2 Potassium Carbon Dioxide Anion Gap BUN Creatinine Est GFR ( Amer) Est GFR (Non-Af Amer) POC Glucose (mg/dL) 88 93 Random Glucose Calcium Phosphorus Magnesium Total Bilirubin AST ALT Alkaline Phosphatase Total Protein Albumin Globulin Albumin/Globulin Ratio Triglycerides Cholesterol LDL Cholesterol Direct HDL Cholesterol CA 19-9 Antigen CA 125 Antigen Free T4 TSH 3rd Generation Estradiol (E2) Level Arterial Blood Potassium Venous Blood Potassium 3.8 Urine HCG, Qual Blood Type Antibody Screen 08/05/16 08/05/16 08/05/16 05:09 07:01 08:56 PT INR APTT Puncture Site pCO2 pO2 HCO3 ABG pH ABG Total CO2 ABG O2 Saturation ABG Base Excess ABG Hemoglobin ABG Carboxyhemoglobin POC ABG HHb (Measured) ABG Methemoglobin Yoandy Test ABG Potassium VBG pH VBG pCO2 VBG HCO3 VBG Total CO2 VBG O2 Sat (Calc) VBG Base Excess VBG Potassium A-a O2 Difference Respiratory Index Hgb O2 Saturation Sodium 134 Chloride 103 Glucose Lactate Liter Flow FiO2 Potassium 3.5 L Carbon Dioxide 19 L Anion Gap 16 BUN 9 Creatinine 0.7 Est GFR ( Amer) > 60 Est GFR (Non-Af Amer) > 60 POC Glucose (mg/dL) 115 H 132 H Random Glucose 111 H Calcium 7.8 L Phosphorus 2.8 Magnesium 2.1 Total Bilirubin 0.9 AST 31 ALT 23 Alkaline Phosphatase 53 Total Protein 6.9 Albumin 3.7 Globulin 3.2 Albumin/Globulin Ratio 1.2 Triglycerides 165 H Cholesterol 129 LDL Cholesterol Direct < 30 HDL Cholesterol 53 CA 19-9 Antigen 486 H CA 125 Antigen 964 H Free T4 TSH 3rd Generation 0.54 Estradiol (E2) Level 136.2 Arterial Blood Potassium Venous Blood Potassium Urine HCG, Qual Blood Type Antibody Screen 08/05/16 08/05/16 08/05/16 08:56 08:56 11:05 PT 15.5 H INR 1.3 APTT 30 Puncture Site pCO2 pO2 HCO3 ABG pH ABG Total CO2 ABG O2 Saturation ABG Base Excess ABG Hemoglobin ABG Carboxyhemoglobin POC ABG HHb (Measured) ABG Methemoglobin Yoandy Test ABG Potassium VBG pH VBG pCO2 VBG HCO3 VBG Total CO2 VBG O2 Sat (Calc) VBG Base Excess VBG Potassium A-a O2 Difference Respiratory Index Hgb O2 Saturation Sodium Chloride Glucose Lactate Liter Flow FiO2 Potassium Carbon Dioxide Anion Gap BUN Creatinine Est GFR ( Amer) Est GFR (Non-Af Amer) POC Glucose (mg/dL) 129 H Random Glucose Calcium Phosphorus Magnesium Total Bilirubin AST ALT Alkaline Phosphatase Total Protein Albumin Globulin Albumin/Globulin Ratio Triglycerides Cholesterol LDL Cholesterol Direct HDL Cholesterol CA 19-9 Antigen CA 125 Antigen Free T4 1.12 TSH 3rd Generation Estradiol (E2) Level Arterial Blood Potassium Venous Blood Potassium Urine HCG, Qual Blood Type Antibody Screen 08/05/16 08/05/16 08/05/16 12:27 12:27 12:50 PT INR APTT Puncture Site Rb pCO2 32 L pO2 131 H HCO3 17.0 L ABG pH 7.29 L ABG Total CO2 16.4 L ABG O2 Saturation 98.3 H ABG Base Excess -10.1 L ABG Hemoglobin 10.7 L ABG Carboxyhemoglobin 1.1 POC ABG HHb (Measured) 1.7 ABG Methemoglobin 0.8 Yoandy Test Na ABG Potassium VBG pH VBG pCO2 VBG HCO3 VBG Total CO2 VBG O2 Sat (Calc) VBG Base Excess VBG Potassium A-a O2 Difference 114.0 Respiratory Index 0.9 Hgb O2 Saturation 96.4 Sodium Chloride Glucose Lactate Liter Flow 8.0 FiO2 40.0 Potassium Carbon Dioxide Anion Gap BUN Creatinine Est GFR ( Amer) Est GFR (Non-Af Amer) POC Glucose (mg/dL) Random Glucose Calcium Phosphorus Magnesium Total Bilirubin AST ALT Alkaline Phosphatase Total Protein Albumin Globulin Albumin/Globulin Ratio Triglycerides Cholesterol LDL Cholesterol Direct HDL Cholesterol CA 19-9 Antigen CA 125 Antigen Free T4 TSH 3rd Generation Estradiol (E2) Level Arterial Blood Potassium Venous Blood Potassium Urine HCG, Qual Negative Blood Type B POSITIVE Antibody Screen Negative 08/05/16 15:25 PT INR APTT Puncture Site Artery pCO2 30 L pO2 282 H HCO3 18.5 L ABG pH 7.34 L ABG Total CO2 17.1 L ABG O2 Saturation 99.4 H ABG Base Excess -8.3 L ABG Hemoglobin ABG Carboxyhemoglobin POC ABG HHb (Measured) ABG Methemoglobin Yoandy Test Pos ABG Potassium 3.6 VBG pH VBG pCO2 VBG HCO3 VBG Total CO2 VBG O2 Sat (Calc) VBG Base Excess VBG Potassium A-a O2 Difference Respiratory Index Hgb O2 Saturation Sodium 134.0 Chloride 108.0 H Glucose 157 H Lactate 2.1 Liter Flow FiO2 Potassium Carbon Dioxide Anion Gap BUN Creatinine Est GFR ( Amer) Est GFR (Non-Af Amer) POC Glucose (mg/dL) Random Glucose Calcium Phosphorus Magnesium Total Bilirubin AST ALT Alkaline Phosphatase Total Protein Albumin Globulin Albumin/Globulin Ratio Triglycerides Cholesterol LDL Cholesterol Direct HDL Cholesterol CA 19-9 Antigen CA 125 Antigen Free T4 TSH 3rd Generation Estradiol (E2) Level Arterial Blood Potassium 3.6 Venous Blood Potassium Urine HCG, Qual Blood Type Antibody Screen Attending/Attestation - Attestation I have personally seen and examined this patient.: Yes I have fully participated in the care of the patient.: Yes I have reviewed all pertinent clinical information: Yes Notes (Text): 08/05/16 16:31 Patient was seen and examined at bedside with the resident This is a late computer entry Patient is in acute distress because of abdominal pain Patient may need urgent surgery. We'll discuss with the SQL PROGRAMMER/primary team I discussed the plan of care with the resident and agree with the above consultation note
[2016-08-04] MEDS: metroNIDAZOLE IV 500 mg/100 ml 500 MG/100 ML BAG IVPB SCH (21:32)
[2016-08-04] MEDS ORDERED: Oxycodone/Acetaminophen 5/325 mg Tab PO PRN ×2 (23:57→23:58)
[2016-08-05] MEDS: HYDROmorphone 1 mg/ml ISec IVP PRN (00:34)
[2016-08-05] MEDS: Sodium Chloride 0.9% 1,000 ML IV SCH ×2 (02:25→11:47)
[2016-08-05] MEDS: (Novolog) Insulin Aspart, Recombinant 100 u/ml 10 ml vial SC SCH ×4 (05:14→23:46)
[2016-08-05] MEDS: Piperacill/Tazo 3.375gm in Dex 3.375 GM/50 ML BAG IVPB SCH ×4 (05:16→23:45)
[2016-08-05] MEDS: Levothyroxine 112 MCG TAB PO SCH (05:44)
[2016-08-05] MEDS: Dextrose 5%/0.45% NS 1,000 ML IV SCH ×2 (05:47→14:00)
[2016-08-05] MEDS: metroNIDAZOLE IV 500 mg/100 ml 500 MG/100 ML BAG IVPB SCH ×2 (06:47→14:00)
[2016-08-05 09:14] LABS: INR 1.3
[2016-08-05 09:19] LABS: CHLORIDE 103 mmol/L (98-107)
[2016-08-05 09:20] LABS: POTASSIUM 3.5 mmol/L (3.6-5.2); SODIUM 134 mmol/L (132-148)
[2016-08-05 09:22] LABS: CHOLESTEROL 129 mg/dL (0-199); GFR AFRICAN-AMERICAN > 60
[2016-08-05 09:23] LABS: ALB/GLOB RATIO 1.2 (1.0-2.1); ALKALINE PHOSPHATASE 53 U/L (38-126); ALT/SGPT 23 U/L (9-52); AST/SGOT 31 U/L (14-36); BILIRUBIN,TOTAL 0.9 mg/dL (0.2-1.3); BLOOD UREA NITROGEN 9 mg/dL (7-17); CARBON DIOXIDE 19 mmol/L (22-30); GLUCOSE,RANDOM 111 mg/dL (65-105); PHOSPHOROUS 2.8 mg/dL (2.5-4.5); TOTAL PROTEIN 6.9 g/dL (6.3-8.3)
[2016-08-05 09:24] LABS: CALCIUM 7.8 mg/dl (8.6-10.4); MAGNESIUM 2.1 mg/dL (1.6-2.3)
[2016-08-05] MEDS ORDERED: Albuterol-Ipratrop 3 mg / 0.5 (3 ml) UD INH STA ×2 (09:34→11:19)
[2016-08-05 09:45] LABS: THYROID STIMULATING HORMONE 0.54 mIU/L (0.46-4.68)
[2016-08-05 09:48] LABS: ESTRADIOL (E2) 136.2 pg/mL
[2016-08-05] MEDS ORDERED: Pantoprazole 40 mg EC Tab PO SCH (10:00)
[2016-08-05] MEDS ORDERED: MethylPREDNISolone 40 mg Vial IVP STA (11:12)
--- NOTE | 2016-08-05 11:24 | CP.PCM.PN ---
Subjective - Date & Time of Evaluation Date of Evaluation: 08/05/16 Time of Evaluation: 11:07 - Subjective Subjective: Called to see Pt who is currently on admission for Treatment of a possible Tubo- ovarian abscess and ovarian cyst. Pt reports that the pain has been worsoning since this morning and regular breathing movement has been eliciting exacerbation of the pain. Pt reports that she has been npo since admission and has passed some gas. The abdomen was tender to palpation with rebound tenderness over the whole abdomen which was distended. The findings of the acute abdomen with the neccessity of an emergent exploratory laparatomy was discussed with the patient. Pt reports that she cannot bear the extent of the pain anymore and would want to have surgery. The risks, benefits and alternatives were discussed with the patient. The risks including overwhelming sepsis, need for blood transfusion, injury to vital organs like bowels, bladder , ureters. Questions from Pt were answered. Consent obtained. Objective - Vital Signs/Intake and Output Vital Signs (last 24 hours): Temp Pulse Resp BP Pulse Ox 98.8 F 61 16 124/76 98 08/05/16 08:00 08/05/16 08:00 08/05/16 08:00 08/05/16 08:00 08/05/16 08:00 Intake and Output: 08/05/16 08/05/16 06:59 18:59 Intake Total 1480 Balance 1480 - Medications Medications: Current Medications Alprazolam (Xanax) 0.25 mg PO HS PRN PRN Reason: Anxiety Stop: 08/11/16 15:25 Docusate Sodium (Colace) 100 mg PO BID PRN PRN Reason: Constipation Docusate Sodium (Colace) 100 mg PO BID [facility] Last Admin: 08/05/16 09:57 Dose: 100 mg Hydromorphone HCl (Dilaudid) 1 mg IVP Q3H PRN PRN Reason: Pain, severe (8-10) Last Admin: 08/05/16 07:38 Dose: 1 mg Metronidazole (Flagyl) 500 mg in 100 mls @ 100 mls/hr IVPB Q8 [facility] Last Admin: 08/05/16 06:47 Dose: 100 mls/hr Piperacillin Sod/Tazobactam Sod (Zosyn 3.375 Gm Iv Premix) 3.375 gm in 50 mls @ 100 mls/hr IVPB Q6H [facility] Last Admin: 08/05/16 05:16 Dose: 100 mls/hr Sodium Chloride (Sodium Chloride 0.9%) 1,000 mls @ 100 mls/hr IV .Q10H [facility] Last Admin: 08/05/16 02:25 Dose: Not Given Dextrose/Sodium Chloride (Dextrose 5%/0.45% Ns 1000 Ml) 1,000 mls @ 100 mls/hr IV .Q10H [facility] Last Admin: 08/05/16 05:47 Dose: Not Given Insulin Aspart (Novolog) 0 unit SC Q6H [facility] PRN Reason: Protocol Last Admin: 08/05/16 05:14 Dose: Not Given Levothyroxine Sodium (Synthroid) 112 mcg PO 0630 [facility] Last Admin: 08/05/16 05:44 Dose: 112 mcg Ondansetron HCl (Zofran Inj) 4 mg IVP Q6 PRN PRN Reason: Nausea/Vomiting Oxycodone/Acetaminophen (Percocet 5/325 Mg Tab) 2 tab PO Q6H PRN PRN Reason: Pain, severe (8-10) Stop: 08/07/16 23:58 Last Admin: 08/05/16 05:45 Dose: 2 tab Oxycodone/Acetaminophen (Percocet 5/325 Mg Tab) 1 tab PO Q4H PRN PRN Reason: Pain, moderate (4-7) Stop: 08/07/16 23:59 Last Admin: 08/05/16 09:58 Dose: 1 tab Pantoprazole Sodium (Protonix Ec Tab) 40 mg PO DAILY [facility] Last Admin: 08/05/16 09:58 Dose: 40 mg Pneumococcal Polyvalent Vaccine (Pneumovax 23 Vaccine) 0.5 ml IM .ONCE ONE Stop: 08/07/16 10:01 - Labs Labs: 08/05/16 08:56 PT 15.5 SECONDS (9.7-12.2) H 08/05/16 08:56 INR 1.3 08/05/16 08:56 APTT 30 SECONDS (21-34) 08/05/16 08:56 - Constitutional Appears: In Acute Distress - Respiratory Exam Respiratory Exam: Clear to Ausculation Bilateral - Cardiovascular Exam Cardiovascular Exam: REGULAR RHYTHM - GI/Abdominal Exam GI & Abdominal Exam: Distended, Guarding, Tenderness, Hypoactive Bowel Sounds, Rebound - Exam Bimanual exam: Uterine Tenderness - Extremities Exam Extremities Exam: Normal Inspection - Neurological Exam Neurological Exam: Oriented x3 - Skin Skin Exam: Dry Assessment and Plan (1) Acute abdominal pain Status: Acute (2) Tubo-ovarian abscess Status: Acute (3) Ovarian cyst Status: Acute - Assessment and Plan (Free Text) Plan: NPO IV Fluids Anesthesia evaluation Clearance from Internal Medicine for surgery General Surgery standby IV antibiotics machine scallop cutter to the OR.
--- NOTE | 2016-08-05 11:30 | CP.PCM.PN ---
<KarinashokVeda - Last Filed: 08/05/16 11:13> Subjective - Date & Time of Evaluation Date of Evaluation: 08/05/16 Time of Evaluation: 09:00 - Subjective Subjective: Medicine Progress Note Patient seen and examined this morning. Patient in acute distress, tachypneic and tachycardic. Patient on venti mask with vitals BP 122/79, RR 24, HR 100, SpO2 100%. Patient evaluated by Dr Griffiths (public health clinical nurse specialist surgeon) who will likely take patient for surgery once stabilize. Patient's blood work reviewed, INR 1.0, EKG on admission showed sinus tachycardia. Chest X-ray ordered stat- will review prior to surgery. Patient also given stat duoneb treatment and IVP Solumedrol 80mg this morning due to wheezing heard on examination. Dr Griffiths to contact anesthesiologist pulmonology technician to evaluate patient's respiratory status prior to surgery. Patient has history of HTN, DM, asthma, ANIL, HLD and hypothyroidism. According to Revised Cardiac Risk Index, the patient has 6.6% chance of cardiac event during this non- cardiac surgery due to her diabetes. Benefits of the surgery outweigh the risks at this time. Surgeon and anesthesiologist should discuss the risks of the surgery with the patient prior to the procedure. Objective - Vital Signs/Intake and Output Vital Signs (last 24 hours): Temp Pulse Resp BP Pulse Ox 98.8 F 61 16 124/76 98 08/05/16 08:00 08/05/16 08:00 08/05/16 08:00 08/05/16 08:00 08/05/16 08:00 Intake and Output: 08/05/16 08/05/16 06:59 18:59 Intake Total 1480 Balance 1480 - Medications Medications: Current Medications Alprazolam (Xanax) 0.25 mg PO HS PRN PRN Reason: Anxiety Stop: 08/11/16 15:25 Docusate Sodium (Colace) 100 mg PO BID PRN PRN Reason: Constipation Docusate Sodium (Colace) 100 mg PO BID [facility] Last Admin: 08/05/16 09:57 Dose: 100 mg Hydromorphone HCl (Dilaudid) 1 mg IVP Q3H PRN PRN Reason: Pain, severe (8-10) Last Admin: 08/05/16 07:38 Dose: 1 mg Metronidazole (Flagyl) 500 mg in 100 mls @ 100 mls/hr IVPB Q8 [facility] Last Admin: 08/05/16 06:47 Dose: 100 mls/hr Piperacillin Sod/Tazobactam Sod (Zosyn 3.375 Gm Iv Premix) 3.375 gm in 50 mls @ 100 mls/hr IVPB Q6H [facility] Last Admin: 08/05/16 05:16 Dose: 100 mls/hr Sodium Chloride (Sodium Chloride 0.9%) 1,000 mls @ 100 mls/hr IV .Q10H [facility] Last Admin: 08/05/16 02:25 Dose: Not Given Dextrose/Sodium Chloride (Dextrose 5%/0.45% Ns 1000 Ml) 1,000 mls @ 100 mls/hr IV .Q10H [facility] Last Admin: 08/05/16 05:47 Dose: Not Given Insulin Aspart (Novolog) 0 unit SC Q6H [facility] PRN Reason: Protocol Last Admin: 08/05/16 05:14 Dose: Not Given Levothyroxine Sodium (Synthroid) 112 mcg PO 0630 [facility] Last Admin: 08/05/16 05:44 Dose: 112 mcg Methylprednisolone (Solu-Medrol) 80 mg IVP STAT STA Stop: 08/05/16 11:13 Ondansetron HCl (Zofran Inj) 4 mg IVP Q6 PRN PRN Reason: Nausea/Vomiting Oxycodone/Acetaminophen (Percocet 5/325 Mg Tab) 2 tab PO Q6H PRN PRN Reason: Pain, severe (8-10) Stop: 08/07/16 23:58 Last Admin: 08/05/16 05:45 Dose: 2 tab Oxycodone/Acetaminophen (Percocet 5/325 Mg Tab) 1 tab PO Q4H PRN PRN Reason: Pain, moderate (4-7) Stop: 08/07/16 23:59 Last Admin: 08/05/16 09:58 Dose: 1 tab Pantoprazole Sodium (Protonix Ec Tab) 40 mg PO DAILY [facility] Last Admin: 08/05/16 09:58 Dose: 40 mg Pneumococcal Polyvalent Vaccine (Pneumovax 23 Vaccine) 0.5 ml IM .ONCE ONE Stop: 08/07/16 10:01 - Labs Labs: 08/05/16 08:56 PT 15.5 SECONDS (9.7-12.2) H 08/05/16 08:56 INR 1.3 08/05/16 08:56 APTT 30 SECONDS (21-34) 08/05/16 08:56 - Constitutional Appears: In Acute Distress - Head Exam Head Exam: ATRAUMATIC, NORMOCEPHALIC - Eye Exam Eye Exam: EOMI, Normal appearance - ENT Exam ENT Exam: Mucous Membranes Moist - Neck Exam Neck Exam: Normal Inspection - Respiratory Exam Respiratory Exam: Accessory Muscle Use, Wheezes. absent: Rales Additional comments: tachypneic - Cardiovascular Exam Cardiovascular Exam: Tachycardia, REGULAR RHYTHM, +S1, +S2. absent: Murmur - GI/Abdominal Exam GI & Abdominal Exam: Distended, Guarding, Tenderness, Hypoactive Bowel Sounds. absent: Soft, Normal Bowel Sounds - Extremities Exam Extremities Exam: Normal Inspection. absent: Pedal Edema - Neurological Exam Neurological Exam: Alert, Awake, CN II-XII Intact, Oriented x3 - Psychiatric Exam Psychiatric exam: Anxious, Normal Affect - Skin Skin Exam: Dry, Intact, Normal Color, Warm Assessment and Plan - Assessment and Plan (Free Text) Assessment: Acute Abdominal Pain * Accounts Receivable Bookkeeper surgeon Dr Griffiths planning for surgery due to acute abdomen- benefits outweigh the risks at this time * likely due to tubo-ovarian abscess vs endometrioma vs ileus * CT A/P- moderate abdominal pelvic free fluid (Right side), complex cyst 6cm left ovarian/adnexal lesion. Small bowel findings most likely 2/2 to ileus * Trans Vaginal US- enlarged left ovary 6.3 x 6.2 x 6.3cm. Normal flow. Large ill-defined hypoechoic focus 4.9 x 2.3 x 5.1cm * UA- negative for leukocyte esterase and nitrates * Blood and Urine Cultures Pending * General Surgery Consultation help appreciated * Zosyn and Flagyl started by OB * hold metformin * f/u GC and chlymydia * Pain Control- Dilaudid 1mg Q3 PRN pain (8-10) * F/U MRI abdomen and pelvis HTN * Stable blood pressure, no medications at this time * Monitor vitals q4h and adjust management as needed DM * Hold metformin * F/U A1C * accuchecks * sliding scale insulin ANIL * Continue CPAP machine as patient uses it at home HLD * lipid panel: LDL <30, HDL 53, Cholesterol 129, TG 165 Hypothyroidism * resume home synthroid * TSH 0.54, within well controlled limits Anxiety * Xanax 0.25mg PO HS PRN anxiety PPX: * anticoagulation held due to pending surgery * protonix * SCDs Assessment and plan discussed with attending physician. <JoseKoko M - Last Filed: 08/05/16 11:52> Objective - Vital Signs/Intake and Output Vital Signs (last 24 hours): Temp Pulse Resp BP Pulse Ox 98.8 F 61 16 124/76 98 08/05/16 08:00 08/05/16 08:00 08/05/16 08:00 08/05/16 08:00 08/05/16 08:00 Intake and Output: 08/05/16 08/05/16 06:59 18:59 Intake Total 1480 Balance 1480 - Medications Medications: Current Medications Alprazolam (Xanax) 0.25 mg PO HS PRN PRN Reason: Anxiety Stop: 08/11/16 15:25 Docusate Sodium (Colace) 100 mg PO BID PRN PRN Reason: Constipation Docusate Sodium (Colace) 100 mg PO BID [facility] Last Admin: 08/05/16 09:57 Dose: 100 mg Hydromorphone HCl (Dilaudid) 1 mg IVP Q3H PRN PRN Reason: Pain, severe (8-10) Last Admin: 08/05/16 11:18 Dose: 1 mg Metronidazole (Flagyl) 500 mg in 100 mls @ 100 mls/hr IVPB Q8 [facility] Last Admin: 08/05/16 06:47 Dose: 100 mls/hr Piperacillin Sod/Tazobactam Sod (Zosyn 3.375 Gm Iv Premix) 3.375 gm in 50 mls @ 100 mls/hr IVPB Q6H [facility] Last Admin: 08/05/16 11:12 Dose: 100 mls/hr Sodium Chloride (Sodium Chloride 0.9%) 1,000 mls @ 100 mls/hr IV .Q10H [facility] Last Admin: 08/05/16 02:25 Dose: Not Given Dextrose/Sodium Chloride (Dextrose 5%/0.45% Ns 1000 Ml) 1,000 mls @ 100 mls/hr IV .Q10H [facility] Last Admin: 08/05/16 05:47 Dose: Not Given Potassium Chloride (Potassium Chloride 20 Meq/100 Ml) 20 meq in 100 mls @ 50 mls/hr IVPB ONCE ONE Stop: 08/05/16 13:38 Insulin Aspart (Novolog) 0 unit SC Q6H [facility] PRN Reason: Protocol Last Admin: 08/05/16 05:14 Dose: Not Given Levothyroxine Sodium (Synthroid) 112 mcg PO 0630 [facility] Last Admin: 08/05/16 05:44 Dose: 112 mcg Ondansetron HCl (Zofran Inj) 4 mg IVP Q6 PRN PRN Reason: Nausea/Vomiting Oxycodone/Acetaminophen (Percocet 5/325 Mg Tab) 2 tab PO Q6H PRN PRN Reason: Pain, severe (8-10) Stop: 08/07/16 23:58 Last Admin: 08/05/16 05:45 Dose: 2 tab Oxycodone/Acetaminophen (Percocet 5/325 Mg Tab) 1 tab PO Q4H PRN PRN Reason: Pain, moderate (4-7) Stop: 08/07/16 23:59 Last Admin: 08/05/16 09:58 Dose: 1 tab Pantoprazole Sodium (Protonix Ec Tab) 40 mg PO DAILY [facility] Last Admin: 08/05/16 09:58 Dose: 40 mg Pneumococcal Polyvalent Vaccine (Pneumovax 23 Vaccine) 0.5 ml IM .ONCE ONE Stop: 08/07/16 10:01 - Labs Labs: 08/05/16 08:56 PT 15.5 SECONDS (9.7-12.2) H 08/05/16 08:56 INR 1.3 08/05/16 08:56 APTT 30 SECONDS (21-34) 08/05/16 08:56 Attending/Attestation - Attestation I have personally seen and examined this patient.: Yes I have fully participated in the care of the patient.: Yes I have reviewed all pertinent clinical information, including history, physical exam and plan: Yes Notes (Text): 08/05/16 11:44 Patient seen and examined at bedside She is in acute distress because of abdominal pain. Patient needs urgent surgery as per my discussion with Aye. Patient has multiple medical problems and perioperative risks stated above in the resident note. She is hemodynamically stable and oxygen saturation is 97% on RA. Benefits outweigh the risks at this point for surgery and patient is cleared for surgery in view of the urgency. I agree with the above history and physical and assessment/plan by the resident.
[2016-08-05 12:37] LABS: CA 19-9 486 U/mL (0-37)
[2016-08-05 12:56] LABS: ARTERIAL BLOOD HGB O2 SAT 96.4 % (95.0-98.0); CARBOXYHEMOGLOBIN 1.1 % (0.5-1.5); DRAW SITE RB; HHB 1.7 % (0.0-5.0); METHEMOGLOBIN 0.8 % (0.0-3.0)
[2016-08-05] MEDS ORDERED: Albuterol-Ipratrop 3 mg / 0.5 (3 ml) UD INH SCH (13:15)
[2016-08-05] MEDS ORDERED: Lactated Ringer's 1,000 ML IV ONE ×4 (14:20→16:12)
[2016-08-05] MEDS ORDERED: Midazolam 2 MG/2 ML VIAL ONE (14:24)
[2016-08-05] MEDS ORDERED: Propofol 10 mg/ml Inj (20 ML) ONE ×2 (14:25→16:04)
[2016-08-05] MEDS ORDERED: Ketamine 50 mg/ml Inj (10 ml) ONE (14:29)
[2016-08-05] MEDS ORDERED: ePHEDrine 50 mg/ml Inj ONE (14:50)
[2016-08-05] MEDS ORDERED: Rocuronium 10 mg/ml (10 ml) ONE (14:50)
[2016-08-05] MEDS ORDERED: Phenylephrine 10 mg/ml Inj ONE (14:50)
[2016-08-05] MEDS ORDERED: Succinylcholine Chloride 20 mg/ml Syr (5 ml) IV ONE (14:50)
--- NOTE | 2016-08-05 14:55 | RAD ---
HISTORY: preop COMPARISON: No prior. FINDINGS: LUNGS: No active pulmonary disease. PLEURA: No significant pleural effusion identified, no pneumothorax apparent. CARDIOVASCULAR: Normal. OSSEOUS STRUCTURES: No significant abnormalities. VISUALIZED UPPER ABDOMEN: Normal. OTHER FINDINGS: None. IMPRESSION: Suboptimal study with poor inspiratory effort. Evidence of acute pulmonary disease.
[2016-08-05] MEDS ORDERED: HYDROmorphone 0.5 mg/0.5 ml ISec IVP PRN (15:24)
[2016-08-05 15:30] LABS: ABG ALLEN TEST POS; DRAW SITE ARTERY
[2016-08-05] MEDS ORDERED: Morphine Monoject Barrel PCA 1mg/ml IV PRN (15:33)
[2016-08-05] MEDS ORDERED: DiphenhydrAMINE 50 mg/ml Inj IVP PRN (15:33)
[2016-08-05] MEDS ORDERED: Neostigmine Methylsulfate 3mg/3ml Syringe IV ONE (15:33)
[2016-08-05] MEDS ORDERED: Albuterol HFA 90 mcg/actuation (8 g) ONE (15:38)
--- NOTE | 2016-08-05 16:21 | PCM.SURG1 ---
Surgeon's Initial Post Op Note - Surgeon's Notes Surgeon: Dr Griffiths Order Dispatcher Chief: Dr Barriga, Intraoperative consult by Dr Alicea Type of Anesthesia: General Endo Anesthesia Administered By: Dr Anrdade, Dr Sweeney Pre-Operative Diagnosis: Acute Abdominal Pain, Left Ovarian Cystic structure with. Tubo ovarian abscess. Operative Findings: Dark serous fluid with brownish fibrinous deposits on some portions of the bowels signifying a ruptured endometriotic cyst. The omentum as well as portions of the bowel were adhesed to a left cystic adnexal mass( size 4.5X3.6X 4.0cm) filled with mucinous chocolate fluid. The uterus as well as the posterior cul de sac were burried in dense pelvic adhesions.The left fallopian tube was firmly attached to the left endometriotic cyst wall and started to bleed on seperating it from the wall.Intraoperative surgical consult was performed by Dr Alicea who explored the rest of the abdomen for possible pathology. No pus pockets identified. IVFluid intake - 3000mls. EBL - 50mls. Urine output- 500mls. Post-Operative Diagnosis: Acute Abdomen from Ruptured endometriotic Cyst. Pelvic endometriosis with dense adhesions. Left Endometriotc cyst Operation Performed: Exploratory laparotomy with left ovarian cystectomy,. Release of pelvic and omental adhesions, Specimen/Specimens Removed: Peritoneal fluid for cytology. Left Ovarian cyst wall Estimated Blood Loss: EBL {In ML}: 50 Post-Op Condition: Good Date of Surgery/Procedure: 08/05/16 Time of Surgery/Procedure: 16:36
[2016-08-05] MEDS ORDERED: Propofol 10 mg/ml 0 MG/0 ML VIAL ONE (16:28)
[2016-08-05] MEDS ORDERED: Lactated Ringer's 1,000 ML IV SCH (16:45)
[2016-08-05] MEDS ORDERED: Propofol 10 mg/ml Inj (100 ml) IV SCH ×2 (17:00→17:45)
[2016-08-05] MEDS: Propofol 10 mg/ml 1,000 MG/100 ML VIAL IV PRN ×2 (17:05→23:43)
--- NOTE | 2016-08-05 17:30 | RAD ---
HISTORY: POST OP/ETT COMPARISON: Comparison is made to the previous same-day study. FINDINGS: LUNGS: Status post intubation. The ET tube is seen at appropriate position. No significant interval change in the lungs since the previous exam. PLEURA: No significant pleural effusion identified, no pneumothorax apparent. CARDIOVASCULAR: Normal. OSSEOUS STRUCTURES: No significant abnormalities. VISUALIZED UPPER ABDOMEN: Normal. OTHER FINDINGS: NG tube seen extending to the abdomen. IMPRESSION: Status post intubation. Otherwise no significant interval change.
[2016-08-05] MEDS: Lactated Ringer's 1,000 ML IV SCH (17:41)
--- NOTE | 2016-08-05 18:04 | CP.PCM.CON ---
History of Present Illness - History of Present Illness History of Present Illness: This is a 46 year old female with multiple medical problems who comes to the hospital for abdominal pain. Recently signed AMA from another facility since she was told she needed surgical removal of ovarian cyst. Underwent removal of ruptured left cyst with mucinous chocolate fluids with release of pelvic and omental adhesions. During surgery had high PAP and her abdomen was very distendeed, abg during surgery wnl. Here ins ICU she is doing well, able to decrease pressure to 20 on the ventilator with TV 400's, minimal fio2 requirements. Awaiting for repeated chemestry. ros unable pe: bp 101/59 mmhg, hr 126 bpm, rr 23 bpm, O2 100 % on 30% fio2, afebrile sedated and intubated s1, s2 sinus tachycardia lungs good bilateral air of entry, mild sporadic wheeze, no crackles abdomen global, seems very tender, linear medial surgical insicion, no drains able to move all extremities a/p: right ruptured ovarian cyst s/p ex-lap possible sepsis: on zosyn, no need for other antibiotics, bc negative, surgical specimen sent for culture asthma: no need for steroids, minimal scattered wheezing. htn dm hx thyroids CA with radiation and chemotherapy Past Patient History - Infectious Disease Hx of Infectious Diseases: None - Past Medical History & Family History Past Medical History?: Yes - Past Social History Smoking Status: Former Smoker Alcohol: Occasional Drugs: Denies Home Situation {Lives}: With Family - PULMONARY Hx Asthma: Yes Hx Pneumonia: Yes (Stated she had it 2yrs ago) - ENDOCRINE/METABOLIC Hx Diabetes Mellitus Type 2: Yes Hx Hypothyroidism: Yes - MUSCULOSKELETAL/RHEUMATOLOGICAL Hx Falls: No Hx Herniated Disk: Yes - PSYCHIATRIC Hx Substance Use: No - SURGICAL HISTORY Hx Surgeries: Yes Hx Thyroidectomy: Yes - ANESTHESIA Hx Anesthesia: Yes Hx Anesthesia Reactions: No Hx Malignant Hyperthermia: No Has any member of the family had a problem w/ anesthesia?: No Meds Allergies/Adverse Reactions: Allergies Allergy/AdvReac Type Severity Reaction Status Date / Time naproxen [From Aleve] Allergy Verified 08/04/16 01:42 Penicillins Allergy Verified 08/04/16 01:42 - Medications Medications: Current Medications Albuterol/Ipratropium (Duoneb 3 Mg/0.5 Mg (3 Ml) Ud) 3 ml INH RQ6 [facility] Enoxaparin Sodium (Lovenox) 30 mg SC DAILY [facility] Piperacillin Sod/Tazobactam Sod (Zosyn 3.375 Gm Iv Premix) 3.375 gm in 50 mls @ 100 mls/hr IVPB Q6H [facility] Last Admin: 08/05/16 11:12 Dose: 100 mls/hr Propofol (Diprivan) 1,000 mg in 100 mls @ 1.905 mls/hr IV .Q24H [facility]N; Protocol; 5 MCG/KG/MIN PRN Reason: TITRATE PER MD ORDER Fentanyl Citrate 2,500 mcg/ (Sodium Chloride) 250 mls @ 63.5 mls/hr IV .Q3H57M [facility]; 10 MCG/KG/HR PRN Reason: Protocol Lactated Ringer's (Lactated Ringer's) 1,000 mls @ 100 mls/hr IV .Q10H [facility] Last Admin: 08/05/16 17:41 Dose: 100 mls/hr Insulin Aspart (Novolog) 0 unit SC Q6H [facility] PRN Reason: Protocol Last Admin: 08/05/16 11:00 Dose: Not Given Levothyroxine Sodium (Synthroid) 112 mcg PO 0630 [facility] Last Admin: 08/05/16 05:44 Dose: 112 mcg Results - Vital Signs Recent Vital Signs: Last Vital Signs Temp 97.2 F L 08/05/16 16:45 Pulse 90 08/05/16 17:11 Resp 16 08/05/16 16:45 BP 107/65 08/05/16 16:45 Pulse Ox 100 08/05/16 16:45 - Labs Result Diagrams: 08/04/16 11:51 08/05/16 08:56 Labs: Laboratory Results - last 24 hr 08/04/16 08/04/16 08/05/16 14:45 23:43 05:09 PT INR APTT Puncture Site pCO2 pO2 28 L HCO3 ABG pH ABG Total CO2 ABG O2 Saturation ABG Base Excess ABG Hemoglobin ABG Carboxyhemoglobin POC ABG HHb (Measured) ABG Methemoglobin Yoandy Test ABG Potassium VBG pH 7.31 L VBG pCO2 43 VBG HCO3 20.0 VBG Total CO2 23.0 VBG O2 Sat (Calc) 56.6 VBG Base Excess -4.5 L VBG Potassium 3.8 A-a O2 Difference Respiratory Index Hgb O2 Saturation Sodium 139.0 Chloride 110.0 H Glucose 109 H Lactate 1.2 Liter Flow FiO2 Potassium Carbon Dioxide Anion Gap BUN Creatinine Est GFR ( Amer) Est GFR (Non-Af Amer) POC Glucose (mg/dL) 93 115 H Random Glucose Calcium Phosphorus Magnesium Total Bilirubin AST ALT Alkaline Phosphatase Total Protein Albumin Globulin Albumin/Globulin Ratio Triglycerides Cholesterol LDL Cholesterol Direct HDL Cholesterol CA 19-9 Antigen CA 125 Antigen Free T4 TSH 3rd Generation Estradiol (E2) Level Arterial Blood Potassium Venous Blood Potassium 3.8 Urine HCG, Qual Blood Type Antibody Screen 08/05/16 08/05/16 08/05/16 07:01 08:56 08:56 PT 15.5 H INR 1.3 APTT 30 Puncture Site pCO2 pO2 HCO3 ABG pH ABG Total CO2 ABG O2 Saturation ABG Base Excess ABG Hemoglobin ABG Carboxyhemoglobin POC ABG HHb (Measured) ABG Methemoglobin Yoandy Test ABG Potassium VBG pH VBG pCO2 VBG HCO3 VBG Total CO2 VBG O2 Sat (Calc) VBG Base Excess VBG Potassium A-a O2 Difference Respiratory Index Hgb O2 Saturation Sodium 134 Chloride 103 Glucose Lactate Liter Flow FiO2 Potassium 3.5 L Carbon Dioxide 19 L Anion Gap 16 BUN 9 Creatinine 0.7 Est GFR ( Amer) > 60 Est GFR (Non-Af Amer) > 60 POC Glucose (mg/dL) 132 H Random Glucose 111 H Calcium 7.8 L Phosphorus 2.8 Magnesium 2.1 Total Bilirubin 0.9 AST 31 ALT 23 Alkaline Phosphatase 53 Total Protein 6.9 Albumin 3.7 Globulin 3.2 Albumin/Globulin Ratio 1.2 Triglycerides 165 H Cholesterol 129 LDL Cholesterol Direct < 30 HDL Cholesterol 53 CA 19-9 Antigen 486 H CA 125 Antigen 964 H Free T4 TSH 3rd Generation 0.54 Estradiol (E2) Level 136.2 Arterial Blood Potassium Venous Blood Potassium Urine HCG, Qual Blood Type Antibody Screen 08/05/16 08/05/16 08/05/16 08:56 11:05 12:27 PT INR APTT Puncture Site pCO2 pO2 HCO3 ABG pH ABG Total CO2 ABG O2 Saturation ABG Base Excess ABG Hemoglobin ABG Carboxyhemoglobin POC ABG HHb (Measured) ABG Methemoglobin Yoandy Test ABG Potassium VBG pH VBG pCO2 VBG HCO3 VBG Total CO2 VBG O2 Sat (Calc) VBG Base Excess VBG Potassium A-a O2 Difference Respiratory Index Hgb O2 Saturation Sodium Chloride Glucose Lactate Liter Flow FiO2 Potassium Carbon Dioxide Anion Gap BUN Creatinine Est GFR ( Amer) Est GFR (Non-Af Amer) POC Glucose (mg/dL) 129 H Random Glucose Calcium Phosphorus Magnesium Total Bilirubin AST ALT Alkaline Phosphatase Total Protein Albumin Globulin Albumin/Globulin Ratio Triglycerides Cholesterol LDL Cholesterol Direct HDL Cholesterol CA 19-9 Antigen CA 125 Antigen Free T4 1.12 TSH 3rd Generation Estradiol (E2) Level Arterial Blood Potassium Venous Blood Potassium Urine HCG, Qual Blood Type B POSITIVE Antibody Screen Negative 08/05/16 08/05/16 08/05/16 12:27 12:50 15:25 PT INR APTT Puncture Site Rb Artery pCO2 32 L 30 L pO2 131 H 282 H HCO3 17.0 L 18.5 L ABG pH 7.29 L 7.34 L ABG Total CO2 16.4 L 17.1 L ABG O2 Saturation 98.3 H 99.4 H ABG Base Excess -10.1 L -8.3 L ABG Hemoglobin 10.7 L ABG Carboxyhemoglobin 1.1 POC ABG HHb (Measured) 1.7 ABG Methemoglobin 0.8 Yoandy Test Na Pos ABG Potassium 3.6 VBG pH VBG pCO2 VBG HCO3 VBG Total CO2 VBG O2 Sat (Calc) VBG Base Excess VBG Potassium A-a O2 Difference 114.0 Respiratory Index 0.9 Hgb O2 Saturation 96.4 Sodium 134.0 Chloride 108.0 H Glucose 157 H Lactate 2.1 Liter Flow 8.0 FiO2 40.0 Potassium Carbon Dioxide Anion Gap BUN Creatinine Est GFR ( Amer) Est GFR (Non-Af Amer) POC Glucose (mg/dL) Random Glucose Calcium Phosphorus Magnesium Total Bilirubin AST ALT Alkaline Phosphatase Total Protein Albumin Globulin Albumin/Globulin Ratio Triglycerides Cholesterol LDL Cholesterol Direct HDL Cholesterol CA 19-9 Antigen CA 125 Antigen Free T4 TSH 3rd Generation Estradiol (E2) Level Arterial Blood Potassium 3.6 Venous Blood Potassium Urine HCG, Qual Negative Blood Type Antibody Screen
[2016-08-05 18:14] LABS: CHLORIDE 105 mmol/L (98-107); SODIUM 133 mmol/L (132-148)
[2016-08-05 18:15] LABS: POTASSIUM 3.3 mmol/L (3.6-5.2)
[2016-08-05 18:17] LABS: CARBON DIOXIDE 13 mmol/L (22-30); GFR AFRICAN-AMERICAN > 60
[2016-08-05 18:18] LABS: BLOOD UREA NITROGEN 7 mg/dL (7-17); CALCIUM 7.3 mg/dl (8.6-10.4); GLUCOSE,RANDOM 181 mg/dL (65-105); MAGNESIUM 1.9 mg/dL (1.6-2.3); PHOSPHOROUS 2.8 mg/dL (2.5-4.5)
[2016-08-05 18:19] LABS: ABG MECHANICAL RATE 12; ATERIAL BLOOD GAS PEEP 5; DRAW SITE A-LINE
--- NOTE | 2016-08-05 18:36 | CP.PCM.CON ---
History of Present Illness - History of Present Illness History of Present Illness: reason for consultation: asthma Asked by anesthesiologist to evaluate patient for asthma 46 year old female with multiple medical problems who comes to the hospital for abdominal pain. Recently signed AMA from [facility] since she was told she needed surgical removal of ovarian cyst. Underwent removal of ruptured left cyst with mucinous chocolate fluids with release of pelvic and omental adhesions. patient now intubated on ventilatory support being managed by ICU team Past Patient History - Infectious Disease Hx of Infectious Diseases: None - Past Medical History & Family History Past Medical History?: Yes - Past Social History Smoking Status: Former Smoker Alcohol: Occasional Drugs: Denies Home Situation {Lives}: With Family - PULMONARY Hx Asthma: Yes Hx Pneumonia: Yes (Stated she had it 2yrs ago) - ENDOCRINE/METABOLIC Hx Diabetes Mellitus Type 2: Yes Hx Hypothyroidism: Yes - MUSCULOSKELETAL/RHEUMATOLOGICAL Hx Falls: No Hx Herniated Disk: Yes - PSYCHIATRIC Hx Substance Use: No - SURGICAL HISTORY Hx Surgeries: Yes Hx Thyroidectomy: Yes - ANESTHESIA Hx Anesthesia: Yes Hx Anesthesia Reactions: No Hx Malignant Hyperthermia: No Has any member of the family had a problem w/ anesthesia?: No Meds Allergies/Adverse Reactions: Allergies Allergy/AdvReac Type Severity Reaction Status Date / Time naproxen [From Aleve] Allergy Verified 08/04/16 01:42 Penicillins Allergy Verified 08/04/16 01:42 - Medications Medications: Current Medications Albuterol/Ipratropium (Duoneb 3 Mg/0.5 Mg (3 Ml) Ud) 3 ml INH RQ6 DAMON Enoxaparin Sodium (Lovenox) 30 mg SC DAILY DAMON Piperacillin Sod/Tazobactam Sod (Zosyn 3.375 Gm Iv Premix) 3.375 gm in 50 mls @ 100 mls/hr IVPB Q6H DAMON Last Admin: 08/05/16 11:12 Dose: 100 mls/hr Propofol (Diprivan) 1,000 mg in 100 mls @ 1.905 mls/hr IV .Q24H PRN; Protocol; 5 MCG/KG/MIN PRN Reason: TITRATE PER MD ORDER Fentanyl Citrate 2,500 mcg/ (Sodium Chloride) 250 mls @ 63.5 mls/hr IV .Q3H57M DAMON; 10 MCG/KG/HR PRN Reason: Protocol Lactated Ringer's (Lactated Ringer's) 1,000 mls @ 100 mls/hr IV .Q10H [facility] Last Admin: 08/05/16 17:41 Dose: 100 mls/hr Insulin Aspart (Novolog) 0 unit SC Q6H DAMON PRN Reason: Protocol Last Admin: 08/05/16 11:00 Dose: Not Given Levothyroxine Sodium (Synthroid) 112 mcg PO 0630 [facility] Last Admin: 08/05/16 05:44 Dose: 112 mcg Propofol (Diprivan) 100 mg IV ONCE ONE Stop: 08/05/16 17:06 Results - Vital Signs Recent Vital Signs: Last Vital Signs Temp 98 F 08/05/16 17:00 Pulse 126 H 08/05/16 18:00 Resp 24 08/05/16 18:00 BP 101/59 L 08/05/16 17:40 Pulse Ox 100 08/05/16 18:00 - Labs Result Diagrams: 08/04/16 11:51 08/05/16 17:50 Labs: Laboratory Results - last 24 hr 08/04/16 08/04/16 08/05/16 14:45 23:43 05:09 PT INR APTT Puncture Site pCO2 pO2 28 L HCO3 ABG pH ABG Total CO2 ABG O2 Saturation ABG Base Excess ABG Hemoglobin ABG Carboxyhemoglobin POC ABG HHb (Measured) ABG Methemoglobin Yoandy Test ABG Potassium VBG pH 7.31 L VBG pCO2 43 VBG HCO3 20.0 VBG Total CO2 23.0 VBG O2 Sat (Calc) 56.6 VBG Base Excess -4.5 L VBG Potassium 3.8 A-a O2 Difference Respiratory Index Hgb O2 Saturation Sodium 139.0 Chloride 110.0 H Glucose 109 H Lactate 1.2 Liter Flow Mechanical Rate FiO2 PEEP Potassium Carbon Dioxide Anion Gap BUN Creatinine Est GFR ( Amer) Est GFR (Non-Af Amer) POC Glucose (mg/dL) 93 115 H Random Glucose Calcium Phosphorus Magnesium Total Bilirubin AST ALT Alkaline Phosphatase Total Protein Albumin Globulin Albumin/Globulin Ratio Triglycerides Cholesterol LDL Cholesterol Direct HDL Cholesterol CA 19-9 Antigen CA 125 Antigen Free T4 TSH 3rd Generation Estradiol (E2) Level Arterial Blood Potassium Venous Blood Potassium 3.8 Urine HCG, Qual Blood Type Antibody Screen 08/05/16 08/05/16 08/05/16 07:01 08:56 08:56 PT 15.5 H INR 1.3 APTT 30 Puncture Site pCO2 pO2 HCO3 ABG pH ABG Total CO2 ABG O2 Saturation ABG Base Excess ABG Hemoglobin ABG Carboxyhemoglobin POC ABG HHb (Measured) ABG Methemoglobin Yoandy Test ABG Potassium VBG pH VBG pCO2 VBG HCO3 VBG Total CO2 VBG O2 Sat (Calc) VBG Base Excess VBG Potassium A-a O2 Difference Respiratory Index Hgb O2 Saturation Sodium 134 Chloride 103 Glucose Lactate Liter Flow Mechanical Rate FiO2 PEEP Potassium 3.5 L Carbon Dioxide 19 L Anion Gap 16 BUN 9 Creatinine 0.7 Est GFR ( Amer) > 60 Est GFR (Non-Af Amer) > 60 POC Glucose (mg/dL) 132 H Random Glucose 111 H Calcium 7.8 L Phosphorus 2.8 Magnesium 2.1 Total Bilirubin 0.9 AST 31 ALT 23 Alkaline Phosphatase 53 Total Protein 6.9 Albumin 3.7 Globulin 3.2 Albumin/Globulin Ratio 1.2 Triglycerides 165 H Cholesterol 129 LDL Cholesterol Direct < 30 HDL Cholesterol 53 CA 19-9 Antigen 486 H CA 125 Antigen 964 H Free T4 TSH 3rd Generation 0.54 Estradiol (E2) Level 136.2 Arterial Blood Potassium Venous Blood Potassium Urine HCG, Qual Blood Type Antibody Screen 08/05/16 08/05/16 08/05/16 08:56 11:05 12:27 PT INR APTT Puncture Site pCO2 pO2 HCO3 ABG pH ABG Total CO2 ABG O2 Saturation ABG Base Excess ABG Hemoglobin ABG Carboxyhemoglobin POC ABG HHb (Measured) ABG Methemoglobin Yoandy Test ABG Potassium VBG pH VBG pCO2 VBG HCO3 VBG Total CO2 VBG O2 Sat (Calc) VBG Base Excess VBG Potassium A-a O2 Difference Respiratory Index Hgb O2 Saturation Sodium Chloride Glucose Lactate Liter Flow Mechanical Rate FiO2 PEEP Potassium Carbon Dioxide Anion Gap BUN Creatinine Est GFR ( Amer) Est GFR (Non-Af Amer) POC Glucose (mg/dL) 129 H Random Glucose Calcium Phosphorus Magnesium Total Bilirubin AST ALT Alkaline Phosphatase Total Protein Albumin Globulin Albumin/Globulin Ratio Triglycerides Cholesterol LDL Cholesterol Direct HDL Cholesterol CA 19-9 Antigen CA 125 Antigen Free T4 1.12 TSH 3rd Generation Estradiol (E2) Level Arterial Blood Potassium Venous Blood Potassium Urine HCG, Qual Blood Type B POSITIVE Antibody Screen Negative 08/05/16 08/05/16 08/05/16 12:27 12:50 15:25 PT INR APTT Puncture Site Rb Artery pCO2 32 L 30 L pO2 131 H 282 H HCO3 17.0 L 18.5 L ABG pH 7.29 L 7.34 L ABG Total CO2 16.4 L 17.1 L ABG O2 Saturation 98.3 H 99.4 H ABG Base Excess -10.1 L -8.3 L ABG Hemoglobin 10.7 L ABG Carboxyhemoglobin 1.1 POC ABG HHb (Measured) 1.7 ABG Methemoglobin 0.8 Yoandy Test Na Pos ABG Potassium 3.6 VBG pH VBG pCO2 VBG HCO3 VBG Total CO2 VBG O2 Sat (Calc) VBG Base Excess VBG Potassium A-a O2 Difference 114.0 Respiratory Index 0.9 Hgb O2 Saturation 96.4 Sodium 134.0 Chloride 108.0 H Glucose 157 H Lactate 2.1 Liter Flow 8.0 Mechanical Rate FiO2 40.0 PEEP Potassium Carbon Dioxide Anion Gap BUN Creatinine Est GFR ( Amer) Est GFR (Non-Af Amer) POC Glucose (mg/dL) Random Glucose Calcium Phosphorus Magnesium Total Bilirubin AST ALT Alkaline Phosphatase Total Protein Albumin Globulin Albumin/Globulin Ratio Triglycerides Cholesterol LDL Cholesterol Direct HDL Cholesterol CA 19-9 Antigen CA 125 Antigen Free T4 TSH 3rd Generation Estradiol (E2) Level Arterial Blood Potassium 3.6 Venous Blood Potassium Urine HCG, Qual Negative Blood Type Antibody Screen 08/05/16 08/05/16 17:50 18:15 PT INR APTT Puncture Site A-line pCO2 27 L pO2 91 HCO3 13.8 L ABG pH 7.24 L ABG Total CO2 12.4 L ABG O2 Saturation 97.4 ABG Base Excess -14.2 L ABG Hemoglobin ABG Carboxyhemoglobin POC ABG HHb (Measured) ABG Methemoglobin Yoandy Test N/a ABG Potassium 3.2 L VBG pH VBG pCO2 VBG HCO3 VBG Total CO2 VBG O2 Sat (Calc) VBG Base Excess VBG Potassium A-a O2 Difference 89.0 Respiratory Index 1.0 Hgb O2 Saturation Sodium 133 136.0 Chloride 105 111.0 H Glucose 199 H Lactate 3.8 H Liter Flow Mechanical Rate 12 FiO2 30.0 PEEP 5 Potassium 3.3 L Carbon Dioxide 13 L Anion Gap 18 BUN 7 Creatinine 0.6 L Est GFR ( Amer) > 60 Est GFR (Non-Af Amer) > 60 POC Glucose (mg/dL) Random Glucose 181 H Calcium 7.3 L Phosphorus 2.8 Magnesium 1.9 Total Bilirubin AST ALT Alkaline Phosphatase Total Protein Albumin Globulin Albumin/Globulin Ratio Triglycerides Cholesterol LDL Cholesterol Direct HDL Cholesterol CA 19-9 Antigen CA 125 Antigen Free T4 TSH 3rd Generation Estradiol (E2) Level Arterial Blood Potassium 3.2 L Venous Blood Potassium Urine HCG, Qual Blood Type Antibody Screen
[2016-08-05] MEDS ORDERED: Propofol 10 mg/ml Inj (20 ML) IV ONE (18:45)
[2016-08-05] MEDS ORDERED: Sodium Chloride 0.9% 1,000 ML IV ONE (19:49)
[2016-08-06] MEDS: Albuterol-Ipratrop 3 mg / 0.5 (3 ml) UD INH SCH ×4 (01:08→20:09)
[2016-08-06] MEDS: Piperacill/Tazo 3.375gm in Dex 3.375 GM/50 ML BAG IVPB SCH ×3 (05:24→17:37)
[2016-08-06] MEDS: Lactated Ringer's 1,000 ML IV SCH ×2 (05:49→05:51)
[2016-08-06 05:53] LABS: ABG MECHANICAL RATE 12; ARTERIAL BLOOD HGB O2 SAT 96.4 % (95.0-98.0); ATERIAL BLOOD GAS PEEP 5; CARBOXYHEMOGLOBIN 1.4 % (0.5-1.5); DRAW SITE ALINE; HHB 1.5 % (0.0-5.0); METHEMOGLOBIN 0.8 % (0.0-3.0)
[2016-08-06] MEDS: Levothyroxine 112 MCG TAB PO SCH (05:53)
[2016-08-06] MEDS ORDERED: (Novolog) Insulin Aspart, Recombinant 100 u/ml 10 ml vial SC SCH (06:00)
[2016-08-06 06:28] LABS: BASO % 0.1 % (0.0-2.0); HEMATOCRIT 28.8 % (34.0-47.0); LYMPH # 0.5 K/uL (1.0-4.3); LYMPH % 2.4 % (20.0-40.0); MEAN CELL VOLUME 87.1 fL (81.0-99.0); MEAN CORPUSCULAR HEMOGLOBIN 27.7 pg (27.0-31.0); MEAN CORPUSCULAR HGB CONC 31.9 g/dL (33.0-37.0); MEAN PLATELET VOLUME 9.1 fL (7.2-11.7); MONO # 1.1 K/uL (0.0-0.8); MONO % 5.1 % (0.0-10.0); PLATELET COUNT 283 K/uL (130-400); RED CELL DISTRIBUTION WIDTH 13.7 % (11.5-14.5); WHITE BLOOD COUNT 21.7 K/uL (4.8-10.8)
[2016-08-06 06:31] LABS: INR 1.3
[2016-08-06 06:34] LABS: CHLORIDE 106 mmol/L (98-107); SODIUM 135 mmol/L (132-148)
[2016-08-06 06:35] LABS: POTASSIUM 4.3 mmol/L (3.6-5.2)
[2016-08-06 06:36] LABS: GFR AFRICAN-AMERICAN > 60
[2016-08-06 06:37] LABS: ALKALINE PHOSPHATASE 55 U/L (38-126); ALT/SGPT 36 U/L (9-52); AST/SGOT 46 U/L (14-36); BILIRUBIN,TOTAL 0.6 mg/dL (0.2-1.3); BLOOD UREA NITROGEN 14 mg/dL (7-17); CALCIUM 7.6 mg/dl (8.6-10.4); CARBON DIOXIDE 20 mmol/L (22-30); GLUCOSE,RANDOM 148 mg/dL (65-105); PHOSPHOROUS 2.3 mg/dL (2.5-4.5); TOTAL PROTEIN 6.6 g/dL (6.3-8.3)
[2016-08-06 06:38] LABS: MAGNESIUM 2.4 mg/dL (1.6-2.3)
[2016-08-06] MEDS ORDERED: Lactated Ringer's 1,000 ML IV SCH (08:58)
[2016-08-06] MEDS ORDERED: Potassium Phosphate 15 MMOLE in Sodium Chloride 0.9% 250 ML IV ONE (09:00)
[2016-08-06 09:24] LABS: TOTAL CELLS COUNTED 100
[2016-08-06 09:27] LABS: NEUTROPHIL 82 % (50-75)
[2016-08-06 09:28] LABS: LARGE PLATELETS PRESENT
[2016-08-06] MEDS ORDERED: Sodium Phosphate 15 MMOLE in Sodium Chloride 0.9% 250 ML IVPB ONE (09:45)
--- NOTE | 2016-08-06 09:48 | CP.CCUPN ---
CCU Subjective - Physician Review Events Since Last Encounter (Free Text): 08/06/16 09:43 Patient doing well this morning off sedation, looks a little scared only, denies abdominal pain. Good cpap with extubation around 8:30 am. 10 ros asked and negative pe: bp 108/67 mmhg, hr 109 bpm, rr 25 bpm, o2 98% on 40% ventimask aaox3 s1, s2 sinus tachycardia lungs good bilateral air of entry, no wheezing abdomen global, mildly rigid in lower abdomen, linear midline surgical scar no leg edema good muscle tone strength a/p: right ruptured ovarian cyst s/p ex-lap POD #1 possible sepsis: wbc count same than yesterday, but no bands and received 80 mg of solumedrol and underwent surgery, bicarbonate increasing, Cl below 110, no fever asthma: albuterol around the clock htn: no need for bp meds dm: will start feeds latter on hx thyroids CA with radiation and chemotherapy 08/06/16 09:49 CCU Objective - Vital Signs / Intake & Output Vital Signs (Last 4 hours): Vital Signs Pulse Resp BP Pulse Ox 08/06/16 07:00 102 H 7 L 98 08/06/16 06:40 101 H 8 L 106/63 98 08/06/16 06:00 102 H 6 L 98 Intake and Output (Last 8hrs): Intake & Output 08/05/16 08/06/16 08/06/16 22:59 06:59 14:59 Intake Total 2339.4 1362.2 143.4 Output Total 1980 400 50 Balance 359.4 962.2 93.4 Weight 163 lb 11.2 oz Intake: IV 635 215 Intake, IV Amount 1704.4 1147.2 143.4 Left Antecubital 1000 Right Distal Port Wrist 162.0 280 35 Right Forearm 92.4 67.2 8.4 Right Wrist 450 800 100 Output: Gastric Amount 50 Left Nares 50 Drainage 100 Urine 1830 400 50 Urethral (Whitt) 1130 400 50 Stool 0 Emesis 0 - Medications Active Medications: Active Medications Generic Name Dose Route Start Last Admin Trade Name Freq PRN Reason Stop Dose Admin Albuterol/Ipratropium 3 ml 08/05/16 17:30 08/06/16 08:35 Duoneb 3 Mg/0.5 Mg (3 Ml) Ud INH 3 ml RQ6 DAMON Administration Enoxaparin Sodium 30 mg 08/06/16 16:54 Lovenox SC DAILY [facility] Famotidine 20 mg 08/06/16 10:00 Pepcid PO DAILY [facility] Piperacillin Sod/Tazobactam Sod 3.375 gm in 50 mls @ 100 mls/hr 08/04/16 18: 00 08/06/16 05:24 Zosyn 3.375 Gm Iv Premix IVPB 100 mls/hr Q6H DAMON Administration Potassium Phosphate 15 mmole/ 255 mls @ 63 mls/hr 08/06/16 09:00 Sodium Chloride IV 08/06/16 13:02 ONCE ONE Lactated Ringer's 1,000 mls @ 50 mls/hr 08/06/16 08:58 08/06/16 09:38 Lactated Ringer's IV 08/06/16 14:00 50 mls/hr .Q20H DAMON Administration Sodium Phosphate 15 mmole/ 255 mls @ 50 mls/hr 08/06/16 09:36 Sodium Chloride IVPB 08/06/16 14:41 .Q5H6M ONE Insulin Aspart 0 unit 08/06/16 11:30 Novolog SC ACHS [facility] Protocol Insulin Glargine 10 unit 08/06/16 22:00 Lantus SC HS [facility] Levothyroxine Sodium 112 mcg 08/05/16 06:30 08/06/16 05:53 Synthroid PO Not Given 0630 [facility] - Patient Studies Lab Studies: Microbiology Studies 08/05/16 17:40 Gram Stain - Final Abdominal Fluid Body Fluid Culture - Preliminary NO GROWTH AFTER 24 HOURS 08/04/16 15:30 Blood Culture - Preliminary Blood-Venous NO GROWTH AFTER 24 HOURS 08/04/16 15:30 Blood Culture - Preliminary Blood-Venous NO GROWTH AFTER 24 HOURS Lab Studies 08/06/16 08/06/16 08/06/16 Range/Units 06:20 06:20 06:18 WBC 21.7 H (4.8-10.8) K/uL RBC 3.31 L (3.80-5.20) Mil/uL Hgb 9.2 L D (11.0-16.0) g/dL Hct 28.8 L (34.0-47.0) % MCV 87.1 (81.0-99.0) fL MCH 27.7 (27.0-31.0) pg MCHC 31.9 L (33.0-37.0) g/dL RDW 13.7 (11.5-14.5) % Plt Count 283 (130-400) K/uL MPV 9.1 (7.2-11.7) fL Neut % (Auto) 92.4 H (50.0-75.0) % Lymph % (Auto) 2.4 L (20.0-40.0) % [place] % (Auto) 5.1 (0.0-10.0) % Eos % (Auto) 0.0 (0.0-4.0) % Baso % (Auto) 0.1 (0.0-2.0) % Neut # 20.0 H (1.8-7.0) K/uL Lymph # 0.5 L (1.0-4.3) K/uL [place] # 1.1 H (0.0-0.8) K/uL Eos # 0.0 (0.0-0.7) K/uL Baso # 0.0 (0.0-0.2) K/uL Neutrophils % (Manual) 82 H (50-75) % Band Neutrophils % 11 H* (0-2) % Lymphocytes % (Manual) 2 L (20-40) % Monocytes % (Manual) 5 (0-10) % Platelet Estimate Normal (NORMAL) Large Platelets Present RBC Morphology Normal PT 14.5 H (9.7-12.2) SECONDS INR 1.3 APTT 33 (21-34) SECONDS Puncture Site pCO2 (35-45) mm/Hg pO2 (80-100) mm/Hg HCO3 (21-28) mmol/L ABG pH (7.35-7.45) ABG Total CO2 (22-28) mmol/L ABG O2 Saturation (95-98) % ABG Base Excess (-2.0-3.0) mmol/L ABG Hemoglobin (11.7-17.4) g/dL ABG Carboxyhemoglobin (0.5-1.5) % POC ABG HHb (Measured) (0.0-5.0) % ABG Methemoglobin (0.0-3.0) % Yoandy Test ABG Potassium (3.6-5.2) mmol/L A-a O2 Difference mm/Hg Respiratory Index Hgb O2 Saturation (95.0-98.0) % Sodium 135 (132-148) mmol/l Chloride 106 (98-107) mmol/L Glucose (65-105) mg/dl Lactate (0.7-2.1) mmol/L Liter Flow Mechanical Rate FiO2 % PEEP Potassium 4.3 (3.6-5.2) mmol/L Carbon Dioxide 20 L (22-30) mmol/L Anion Gap 13 (10-20) BUN 14 (7-17) mg/dL Creatinine 0.9 (0.7-1.2) MG/DL Est GFR ( Amer) > 60 Est GFR (Non-Af Amer) > 60 POC Glucose (mg/dL) (65-110) mg/dL Random Glucose 148 H (65-105) mg/dL Calcium 7.6 L (8.6-10.4) mg/dl Phosphorus 2.3 L (2.5-4.5) mg/dL Magnesium 2.4 H (1.6-2.3) mg/dL Total Bilirubin 0.6 (0.2-1.3) mg/dL AST 46 H D (14-36) U/L ALT 36 (9-52) U/L Alkaline Phosphatase 55 (38-126) U/L Total Protein 6.6 (6.3-8.3) g/dL Albumin 3.3 L (3.5-5.0) g/dL Globulin 3.2 (2.2-3.9) gm/dL Albumin/Globulin Ratio 1.0 (1.0-2.1) CA 19-9 Antigen (0-37) U/mL CA 125 Antigen (0-35) U/mL Free T4 (0.78-2.19) ng/dL TSH 3rd Generation (0.46-4.68) mIU/L Estradiol (E2) Level pg/mL Arterial Blood Potassium (3.6-5.2) mmol/L Urine HCG, Qual (NEGATIVE) Blood Type Antibody Screen 08/06/16 08/06/16 08/05/16 Range/Units 05:46 04:53 21:26 WBC (4.8-10.8) K/uL RBC (3.80-5.20) Mil/uL Hgb (11.0-16.0) g/dL Hct (34.0-47.0) % MCV (81.0-99.0) fL MCH (27.0-31.0) pg MCHC (33.0-37.0) g/dL RDW (11.5-14.5) % Plt Count (130-400) K/uL MPV (7.2-11.7) fL Neut % (Auto) (50.0-75.0) % Lymph % (Auto) (20.0-40.0) % [place] % (Auto) (0.0-10.0) % Eos % (Auto) (0.0-4.0) % Baso % (Auto) (0.0-2.0) % Neut # (1.8-7.0) K/uL Lymph # (1.0-4.3) K/uL [place] # (0.0-0.8) K/uL Eos # (0.0-0.7) K/uL Baso # (0.0-0.2) K/uL Neutrophils % (Manual) (50-75) % Band Neutrophils % (0-2) % Lymphocytes % (Manual) (20-40) % Monocytes % (Manual) (0-10) % Platelet Estimate (NORMAL) Large Platelets RBC Morphology PT (9.7-12.2) SECONDS INR APTT (21-34) SECONDS Puncture Site [place] pCO2 37 (35-45) mm/Hg pO2 110 H (80-100) mm/Hg HCO3 18.2 L (21-28) mmol/L ABG pH 7.28 L (7.35-7.45) ABG Total CO2 18.5 L (22-28) mmol/L ABG O2 Saturation 98.5 H (95-98) % ABG Base Excess -8.6 L (-2.0-3.0) mmol/L ABG Hemoglobin 9.2 L (11.7-17.4) g/dL ABG Carboxyhemoglobin 1.4 (0.5-1.5) % POC ABG HHb (Measured) 1.5 (0.0-5.0) % ABG Methemoglobin 0.8 (0.0-3.0) % Yoandy Test Na ABG Potassium (3.6-5.2) mmol/L A-a O2 Difference 58.0 mm/Hg Respiratory Index 0.5 Hgb O2 Saturation 96.4 (95.0-98.0) % Sodium (132-148) mmol/l Chloride (98-107) mmol/L Glucose (65-105) mg/dl Lactate (0.7-2.1) mmol/L Liter Flow Mechanical Rate 12 FiO2 30.0 % PEEP 5 Potassium (3.6-5.2) mmol/L Carbon Dioxide (22-30) mmol/L Anion Gap (10-20) BUN (7-17) mg/dL Creatinine (0.7-1.2) MG/DL Est GFR ( Amer) Est GFR (Non-Af Amer) POC Glucose (mg/dL) 162 H 227 H (65-110) mg/dL Random Glucose (65-105) mg/dL Calcium (8.6-10.4) mg/dl Phosphorus (2.5-4.5) mg/dL Magnesium (1.6-2.3) mg/dL Total Bilirubin (0.2-1.3) mg/dL AST (14-36) U/L ALT (9-52) U/L Alkaline Phosphatase (38-126) U/L Total Protein (6.3-8.3) g/dL Albumin (3.5-5.0) g/dL Globulin (2.2-3.9) gm/dL Albumin/Globulin Ratio (1.0-2.1) CA 19-9 Antigen (0-37) U/mL CA 125 Antigen (0-35) U/mL Free T4 (0.78-2.19) ng/dL TSH 3rd Generation (0.46-4.68) mIU/L Estradiol (E2) Level pg/mL Arterial Blood Potassium (3.6-5.2) mmol/L Urine HCG, Qual (NEGATIVE) Blood Type Antibody Screen 08/05/16 08/05/16 08/05/16 Range/Units 18:20 18:15 17:50 WBC (4.8-10.8) K/uL RBC (3.80-5.20) Mil/uL Hgb (11.0-16.0) g/dL Hct (34.0-47.0) % MCV (81.0-99.0) fL MCH (27.0-31.0) pg MCHC (33.0-37.0) g/dL RDW (11.5-14.5) % Plt Count (130-400) K/uL MPV (7.2-11.7) fL Neut % (Auto) (50.0-75.0) % Lymph % (Auto) (20.0-40.0) % [place] % (Auto) (0.0-10.0) % Eos % (Auto) (0.0-4.0) % Baso % (Auto) (0.0-2.0) % Neut # (1.8-7.0) K/uL Lymph # (1.0-4.3) K/uL [place] # (0.0-0.8) K/uL Eos # (0.0-0.7) K/uL Baso # (0.0-0.2) K/uL Neutrophils % (Manual) (50-75) % Band Neutrophils % (0-2) % Lymphocytes % (Manual) (20-40) % Monocytes % (Manual) (0-10) % Platelet Estimate (NORMAL) Large Platelets RBC Morphology PT (9.7-12.2) SECONDS INR APTT (21-34) SECONDS Puncture Site A-line pCO2 27 L (35-45) mm/Hg pO2 91 (80-100) mm/Hg HCO3 13.8 L (21-28) mmol/L ABG pH 7.24 L (7.35-7.45) ABG Total CO2 12.4 L (22-28) mmol/L ABG O2 Saturation 97.4 (95-98) % ABG Base Excess -14.2 L (-2.0-3.0) mmol/L ABG Hemoglobin (11.7-17.4) g/dL ABG Carboxyhemoglobin (0.5-1.5) % POC ABG HHb (Measured) (0.0-5.0) % ABG Methemoglobin (0.0-3.0) % Yoandy Test N/a ABG Potassium 3.2 L (3.6-5.2) mmol/L A-a O2 Difference 89.0 mm/Hg Respiratory Index 1.0 Hgb O2 Saturation (95.0-98.0) % Sodium 136.0 133 (132-148) mmol/l Chloride 111.0 H 105 (98-107) mmol/L Glucose 199 H (65-105) mg/dl Lactate 3.8 H (0.7-2.1) mmol/L Liter Flow Mechanical Rate 12 FiO2 30.0 % PEEP 5 Potassium 3.3 L (3.6-5.2) mmol/L Carbon Dioxide 13 L (22-30) mmol/L Anion Gap 18 (10-20) BUN 7 (7-17) mg/dL Creatinine 0.6 L (0.7-1.2) MG/DL Est GFR ( Amer) > 60 Est GFR (Non-Af Amer) > 60 POC Glucose (mg/dL) 191 H (65-110) mg/dL Random Glucose 181 H (65-105) mg/dL Calcium 7.3 L (8.6-10.4) mg/dl Phosphorus 2.8 (2.5-4.5) mg/dL Magnesium 1.9 (1.6-2.3) mg/dL Total Bilirubin (0.2-1.3) mg/dL AST (14-36) U/L ALT (9-52) U/L Alkaline Phosphatase (38-126) U/L Total Protein (6.3-8.3) g/dL Albumin (3.5-5.0) g/dL Globulin (2.2-3.9) gm/dL Albumin/Globulin Ratio (1.0-2.1) CA 19-9 Antigen (0-37) U/mL CA 125 Antigen (0-35) U/mL Free T4 (0.78-2.19) ng/dL TSH 3rd Generation (0.46-4.68) mIU/L Estradiol (E2) Level pg/mL Arterial Blood Potassium 3.2 L (3.6-5.2) mmol/L Urine HCG, Qual (NEGATIVE) Blood Type Antibody Screen 08/05/16 08/05/16 08/05/16 Range/Units 15:25 12:50 12:27 WBC (4.8-10.8) K/uL RBC (3.80-5.20) Mil/uL Hgb (11.0-16.0) g/dL Hct (34.0-47.0) % MCV (81.0-99.0) fL MCH (27.0-31.0) pg MCHC (33.0-37.0) g/dL RDW (11.5-14.5) % Plt Count (130-400) K/uL MPV (7.2-11.7) fL Neut % (Auto) (50.0-75.0) % Lymph % (Auto) (20.0-40.0) % [place] % (Auto) (0.0-10.0) % Eos % (Auto) (0.0-4.0) % Baso % (Auto) (0.0-2.0) % Neut # (1.8-7.0) K/uL Lymph # (1.0-4.3) K/uL [place] # (0.0-0.8) K/uL Eos # (0.0-0.7) K/uL Baso # (0.0-0.2) K/uL Neutrophils % (Manual) (50-75) % Band Neutrophils % (0-2) % Lymphocytes % (Manual) (20-40) % Monocytes % (Manual) (0-10) % Platelet Estimate (NORMAL) Large Platelets RBC Morphology PT (9.7-12.2) SECONDS INR APTT (21-34) SECONDS Puncture Site Artery Rb pCO2 30 L 32 L (35-45) mm/Hg pO2 282 H 131 H (80-100) mm/Hg HCO3 18.5 L 17.0 L (21-28) mmol/L ABG pH 7.34 L 7.29 L (7.35-7.45) ABG Total CO2 17.1 L 16.4 L (22-28) mmol/L ABG O2 Saturation 99.4 H 98.3 H (95-98) % ABG Base Excess -8.3 L -10.1 L (-2.0-3.0) mmol/L ABG Hemoglobin 10.7 L (11.7-17.4) g/dL ABG Carboxyhemoglobin 1.1 (0.5-1.5) % POC ABG HHb (Measured) 1.7 (0.0-5.0) % ABG Methemoglobin 0.8 (0.0-3.0) % Yoandy Test Pos Na ABG Potassium 3.6 (3.6-5.2) mmol/L A-a O2 Difference 114.0 mm/Hg Respiratory Index 0.9 Hgb O2 Saturation 96.4 (95.0-98.0) % Sodium 134.0 (132-148) mmol/l Chloride 108.0 H (98-107) mmol/L Glucose 157 H (65-105) mg/dl Lactate 2.1 (0.7-2.1) mmol/L Liter Flow 8.0 Mechanical Rate FiO2 40.0 % PEEP Potassium (3.6-5.2) mmol/L Carbon Dioxide (22-30) mmol/L Anion Gap (10-20) BUN (7-17) mg/dL Creatinine (0.7-1.2) MG/DL Est GFR ( Amer) Est GFR (Non-Af Amer) POC Glucose (mg/dL) (65-110) mg/dL Random Glucose (65-105) mg/dL Calcium (8.6-10.4) mg/dl Phosphorus (2.5-4.5) mg/dL Magnesium (1.6-2.3) mg/dL Total Bilirubin (0.2-1.3) mg/dL AST (14-36) U/L ALT (9-52) U/L Alkaline Phosphatase (38-126) U/L Total Protein (6.3-8.3) g/dL Albumin (3.5-5.0) g/dL Globulin (2.2-3.9) gm/dL Albumin/Globulin Ratio (1.0-2.1) CA 19-9 Antigen (0-37) U/mL CA 125 Antigen (0-35) U/mL Free T4 (0.78-2.19) ng/dL TSH 3rd Generation (0.46-4.68) mIU/L Estradiol (E2) Level pg/mL Arterial Blood Potassium 3.6 (3.6-5.2) mmol/L Urine HCG, Qual Negative (NEGATIVE) Blood Type Antibody Screen 08/05/16 08/05/16 08/05/16 Range/Units 12:27 11:05 08:56 WBC (4.8-10.8) K/uL RBC (3.80-5.20) Mil/uL Hgb (11.0-16.0) g/dL Hct (34.0-47.0) % MCV (81.0-99.0) fL MCH (27.0-31.0) pg MCHC (33.0-37.0) g/dL RDW (11.5-14.5) % Plt Count (130-400) K/uL MPV (7.2-11.7) fL Neut % (Auto) (50.0-75.0) % Lymph % (Auto) (20.0-40.0) % [place] % (Auto) (0.0-10.0) % Eos % (Auto) (0.0-4.0) % Baso % (Auto) (0.0-2.0) % Neut # (1.8-7.0) K/uL Lymph # (1.0-4.3) K/uL [place] # (0.0-0.8) K/uL Eos # (0.0-0.7) K/uL Baso # (0.0-0.2) K/uL Neutrophils % (Manual) (50-75) % Band Neutrophils % (0-2) % Lymphocytes % (Manual) (20-40) % Monocytes % (Manual) (0-10) % Platelet Estimate (NORMAL) Large Platelets RBC Morphology PT (9.7-12.2) SECONDS INR APTT (21-34) SECONDS Puncture Site pCO2 (35-45) mm/Hg pO2 (80-100) mm/Hg HCO3 (21-28) mmol/L ABG pH (7.35-7.45) ABG Total CO2 (22-28) mmol/L ABG O2 Saturation (95-98) % ABG Base Excess (-2.0-3.0) mmol/L ABG Hemoglobin (11.7-17.4) g/dL ABG Carboxyhemoglobin (0.5-1.5) % POC ABG HHb (Measured) (0.0-5.0) % ABG Methemoglobin (0.0-3.0) % Yoandy Test ABG Potassium (3.6-5.2) mmol/L A-a O2 Difference mm/Hg Respiratory Index Hgb O2 Saturation (95.0-98.0) % Sodium (132-148) mmol/l Chloride (98-107) mmol/L Glucose (65-105) mg/dl Lactate (0.7-2.1) mmol/L Liter Flow Mechanical Rate FiO2 % PEEP Potassium (3.6-5.2) mmol/L Carbon Dioxide (22-30) mmol/L Anion Gap (10-20) BUN (7-17) mg/dL Creatinine (0.7-1.2) MG/DL Est GFR ( Amer) Est GFR (Non-Af Amer) POC Glucose (mg/dL) 129 H (65-110) mg/dL Random Glucose (65-105) mg/dL Calcium (8.6-10.4) mg/dl Phosphorus (2.5-4.5) mg/dL Magnesium (1.6-2.3) mg/dL Total Bilirubin (0.2-1.3) mg/dL AST (14-36) U/L ALT (9-52) U/L Alkaline Phosphatase (38-126) U/L Total Protein (6.3-8.3) g/dL Albumin (3.5-5.0) g/dL Globulin (2.2-3.9) gm/dL Albumin/Globulin Ratio (1.0-2.1) CA 19-9 Antigen (0-37) U/mL CA 125 Antigen (0-35) U/mL Free T4 1.12 (0.78-2.19) ng/dL TSH 3rd Generation (0.46-4.68) mIU/L Estradiol (E2) Level pg/mL Arterial Blood Potassium (3.6-5.2) mmol/L Urine HCG, Qual (NEGATIVE) Blood Type B POSITIVE Antibody Screen Negative 08/05/16 Range/Units 08:56 WBC (4.8-10.8) K/uL RBC (3.80-5.20) Mil/uL Hgb (11.0-16.0) g/dL Hct (34.0-47.0) % MCV (81.0-99.0) fL MCH (27.0-31.0) pg MCHC (33.0-37.0) g/dL RDW (11.5-14.5) % Plt Count (130-400) K/uL MPV (7.2-11.7) fL Neut % (Auto) (50.0-75.0) % Lymph % (Auto) (20.0-40.0) % [place] % (Auto) (0.0-10.0) % Eos % (Auto) (0.0-4.0) % Baso % (Auto) (0.0-2.0) % Neut # (1.8-7.0) K/uL Lymph # (1.0-4.3) K/uL [place] # (0.0-0.8) K/uL Eos # (0.0-0.7) K/uL Baso # (0.0-0.2) K/uL Neutrophils % (Manual) (50-75) % Band Neutrophils % (0-2) % Lymphocytes % (Manual) (20-40) % Monocytes % (Manual) (0-10) % Platelet Estimate (NORMAL) Large Platelets RBC Morphology PT (9.7-12.2) SECONDS INR APTT (21-34) SECONDS Puncture Site pCO2 (35-45) mm/Hg pO2 (80-100) mm/Hg HCO3 (21-28) mmol/L ABG pH (7.35-7.45) ABG Total CO2 (22-28) mmol/L ABG O2 Saturation (95-98) % ABG Base Excess (-2.0-3.0) mmol/L ABG Hemoglobin (11.7-17.4) g/dL ABG Carboxyhemoglobin (0.5-1.5) % POC ABG HHb (Measured) (0.0-5.0) % ABG Methemoglobin (0.0-3.0) % Yoandy Test ABG Potassium (3.6-5.2) mmol/L A-a O2 Difference mm/Hg Respiratory Index Hgb O2 Saturation (95.0-98.0) % Sodium (132-148) mmol/l Chloride (98-107) mmol/L Glucose (65-105) mg/dl Lactate (0.7-2.1) mmol/L Liter Flow Mechanical Rate FiO2 % PEEP Potassium (3.6-5.2) mmol/L Carbon Dioxide (22-30) mmol/L Anion Gap (10-20) BUN (7-17) mg/dL Creatinine (0.7-1.2) MG/DL Est GFR ( Amer) Est GFR (Non-Af Amer) POC Glucose (mg/dL) (65-110) mg/dL Random Glucose (65-105) mg/dL Calcium (8.6-10.4) mg/dl Phosphorus (2.5-4.5) mg/dL Magnesium (1.6-2.3) mg/dL Total Bilirubin (0.2-1.3) mg/dL AST (14-36) U/L ALT (9-52) U/L Alkaline Phosphatase (38-126) U/L Total Protein (6.3-8.3) g/dL Albumin (3.5-5.0) g/dL Globulin (2.2-3.9) gm/dL Albumin/Globulin Ratio (1.0-2.1) CA 19-9 Antigen 486 H (0-37) U/mL CA 125 Antigen 964 H (0-35) U/mL Free T4 (0.78-2.19) ng/dL TSH 3rd Generation 0.54 (0.46-4.68) mIU/L Estradiol (E2) Level 136.2 pg/mL Arterial Blood Potassium (3.6-5.2) mmol/L Urine HCG, Qual (NEGATIVE) Blood Type Antibody Screen Laboratory Results - last 24 hr 08/05/16 08/05/16 08/05/16 08:56 08:56 11:05 WBC RBC Hgb Hct MCV MCH MCHC RDW Plt Count MPV Neut % (Auto) Lymph % (Auto) [place] % (Auto) Eos % (Auto) Baso % (Auto) Neut # Lymph # [place] # Eos # Baso # Neutrophils % (Manual) Band Neutrophils % Lymphocytes % (Manual) Monocytes % (Manual) Platelet Estimate Large Platelets RBC Morphology PT INR APTT Puncture Site pCO2 pO2 HCO3 ABG pH ABG Total CO2 ABG O2 Saturation ABG Base Excess ABG Hemoglobin ABG Carboxyhemoglobin POC ABG HHb (Measured) ABG Methemoglobin Yoandy Test ABG Potassium A-a O2 Difference Respiratory Index Hgb O2 Saturation Sodium Chloride Glucose Lactate Liter Flow Mechanical Rate FiO2 PEEP Potassium Carbon Dioxide Anion Gap BUN Creatinine Est GFR ( Amer) Est GFR (Non-Af Amer) POC Glucose (mg/dL) 129 H Random Glucose Calcium Phosphorus Magnesium Total Bilirubin AST ALT Alkaline Phosphatase Total Protein Albumin Globulin Albumin/Globulin Ratio CA 19-9 Antigen 486 H CA 125 Antigen 964 H Free T4 1.12 TSH 3rd Generation 0.54 Estradiol (E2) Level 136.2 Arterial Blood Potassium Urine HCG, Qual Blood Type Antibody Screen 08/05/16 08/05/16 08/05/16 12:27 12:27 12:50 WBC RBC Hgb Hct MCV MCH MCHC RDW Plt Count MPV Neut % (Auto) Lymph % (Auto) [place] % (Auto) Eos % (Auto) Baso % (Auto) Neut # Lymph # [place] # Eos # Baso # Neutrophils % (Manual) Band Neutrophils % Lymphocytes % (Manual) Monocytes % (Manual) Platelet Estimate Large Platelets RBC Morphology PT INR APTT Puncture Site Rb pCO2 32 L pO2 131 H HCO3 17.0 L ABG pH 7.29 L ABG Total CO2 16.4 L ABG O2 Saturation 98.3 H ABG Base Excess -10.1 L ABG Hemoglobin 10.7 L ABG Carboxyhemoglobin 1.1 POC ABG HHb (Measured) 1.7 ABG Methemoglobin 0.8 Yoandy Test Na ABG Potassium A-a O2 Difference 114.0 Respiratory Index 0.9 Hgb O2 Saturation 96.4 Sodium Chloride Glucose Lactate Liter Flow 8.0 Mechanical Rate FiO2 40.0 PEEP Potassium Carbon Dioxide Anion Gap BUN Creatinine Est GFR ( Amer) Est GFR (Non-Af Amer) POC Glucose (mg/dL) Random Glucose Calcium Phosphorus Magnesium Total Bilirubin AST ALT Alkaline Phosphatase Total Protein Albumin Globulin Albumin/Globulin Ratio CA 19-9 Antigen CA 125 Antigen Free T4 TSH 3rd Generation Estradiol (E2) Level Arterial Blood Potassium Urine HCG, Qual Negative Blood Type B POSITIVE Antibody Screen Negative 08/05/16 08/05/16 08/05/16 15:25 17:50 18:15 WBC RBC Hgb Hct MCV MCH MCHC RDW Plt Count MPV Neut % (Auto) Lymph % (Auto) [place] % (Auto) Eos % (Auto) Baso % (Auto) Neut # Lymph # [place] # Eos # Baso # Neutrophils % (Manual) Band Neutrophils % Lymphocytes % (Manual) Monocytes % (Manual) Platelet Estimate Large Platelets RBC Morphology PT INR APTT Puncture Site Artery A-line pCO2 30 L 27 L pO2 282 H 91 HCO3 18.5 L 13.8 L ABG pH 7.34 L 7.24 L ABG Total CO2 17.1 L 12.4 L ABG O2 Saturation 99.4 H 97.4 ABG Base Excess -8.3 L -14.2 L ABG Hemoglobin ABG Carboxyhemoglobin POC ABG HHb (Measured) ABG Methemoglobin Yoandy Test Pos N/a ABG Potassium 3.6 3.2 L A-a O2 Difference 89.0 Respiratory Index 1.0 Hgb O2 Saturation Sodium 134.0 133 136.0 Chloride 108.0 H 105 111.0 H Glucose 157 H 199 H Lactate 2.1 3.8 H Liter Flow Mechanical Rate 12 FiO2 30.0 PEEP 5 Potassium 3.3 L Carbon Dioxide 13 L Anion Gap 18 BUN 7 Creatinine 0.6 L Est GFR ( Amer) > 60 Est GFR (Non-Af Amer) > 60 POC Glucose (mg/dL) Random Glucose 181 H Calcium 7.3 L Phosphorus 2.8 Magnesium 1.9 Total Bilirubin AST ALT Alkaline Phosphatase Total Protein Albumin Globulin Albumin/Globulin Ratio CA 19-9 Antigen CA 125 Antigen Free T4 TSH 3rd Generation Estradiol (E2) Level Arterial Blood Potassium 3.6 3.2 L Urine HCG, Qual Blood Type Antibody Screen 08/05/16 08/05/16 08/06/16 18:20 21:26 04:53 WBC RBC Hgb Hct MCV MCH MCHC RDW Plt Count MPV Neut % (Auto) Lymph % (Auto) [place] % (Auto) Eos % (Auto) Baso % (Auto) Neut # Lymph # [place] # Eos # Baso # Neutrophils % (Manual) Band Neutrophils % Lymphocytes % (Manual) Monocytes % (Manual) Platelet Estimate Large Platelets RBC Morphology PT INR APTT Puncture Site pCO2 pO2 HCO3 ABG pH ABG Total CO2 ABG O2 Saturation ABG Base Excess ABG Hemoglobin ABG Carboxyhemoglobin POC ABG HHb (Measured) ABG Methemoglobin Yoandy Test ABG Potassium A-a O2 Difference Respiratory Index Hgb O2 Saturation Sodium Chloride Glucose Lactate Liter Flow Mechanical Rate FiO2 PEEP Potassium Carbon Dioxide Anion Gap BUN Creatinine Est GFR ( Amer) Est GFR (Non-Af Amer) POC Glucose (mg/dL) 191 H 227 H 162 H Random Glucose Calcium Phosphorus Magnesium Total Bilirubin AST ALT Alkaline Phosphatase Total Protein Albumin Globulin Albumin/Globulin Ratio CA 19-9 Antigen CA 125 Antigen Free T4 TSH 3rd Generation Estradiol (E2) Level Arterial Blood Potassium Urine HCG, Qual Blood Type Antibody Screen 08/06/16 08/06/16 08/06/16 05:46 06:18 06:20 WBC 21.7 H RBC 3.31 L Hgb 9.2 L D Hct 28.8 L MCV 87.1 MCH 27.7 MCHC 31.9 L RDW 13.7 Plt Count 283 MPV 9.1 Neut % (Auto) 92.4 H Lymph % (Auto) 2.4 L [place] % (Auto) 5.1 Eos % (Auto) 0.0 Baso % (Auto) 0.1 Neut # 20.0 H Lymph # 0.5 L [place] # 1.1 H Eos # 0.0 Baso # 0.0 Neutrophils % (Manual) 82 H Band Neutrophils % 11 H* Lymphocytes % (Manual) 2 L Monocytes % (Manual) 5 Platelet Estimate Normal Large Platelets Present RBC Morphology Normal PT INR APTT Puncture Site Kanwal pCO2 37 pO2 110 H HCO3 18.2 L ABG pH 7.28 L ABG Total CO2 18.5 L ABG O2 Saturation 98.5 H ABG Base Excess -8.6 L ABG Hemoglobin 9.2 L ABG Carboxyhemoglobin 1.4 POC ABG HHb (Measured) 1.5 ABG Methemoglobin 0.8 Yoandy Test Na ABG Potassium A-a O2 Difference 58.0 Respiratory Index 0.5 Hgb O2 Saturation 96.4 Sodium 135 Chloride 106 Glucose Lactate Liter Flow Mechanical Rate 12 FiO2 30.0 PEEP 5 Potassium 4.3 Carbon Dioxide 20 L Anion Gap 13 BUN 14 Creatinine 0.9 Est GFR ( Amer) > 60 Est GFR (Non-Af Amer) > 60 POC Glucose (mg/dL) Random Glucose 148 H Calcium 7.6 L Phosphorus 2.3 L Magnesium 2.4 H Total Bilirubin 0.6 AST 46 H D ALT 36 Alkaline Phosphatase 55 Total Protein 6.6 Albumin 3.3 L Globulin 3.2 Albumin/Globulin Ratio 1.0 CA 19-9 Antigen CA 125 Antigen Free T4 TSH 3rd Generation Estradiol (E2) Level Arterial Blood Potassium Urine HCG, Qual Blood Type Antibody Screen 08/06/16 06:20 WBC RBC Hgb Hct MCV MCH MCHC RDW Plt Count MPV Neut % (Auto) Lymph % (Auto) [place] % (Auto) Eos % (Auto) Baso % (Auto) Neut # Lymph # [place] # Eos # Baso # Neutrophils % (Manual) Band Neutrophils % Lymphocytes % (Manual) Monocytes % (Manual) Platelet Estimate Large Platelets RBC Morphology PT 14.5 H INR 1.3 APTT 33 Puncture Site pCO2 pO2 HCO3 ABG pH ABG Total CO2 ABG O2 Saturation ABG Base Excess ABG Hemoglobin ABG Carboxyhemoglobin POC ABG HHb (Measured) ABG Methemoglobin Yoandy Test ABG Potassium A-a O2 Difference Respiratory Index Hgb O2 Saturation Sodium Chloride Glucose Lactate Liter Flow Mechanical Rate FiO2 PEEP Potassium Carbon Dioxide Anion Gap BUN Creatinine Est GFR ( Amer) Est GFR (Non-Af Amer) POC Glucose (mg/dL) Random Glucose Calcium Phosphorus Magnesium Total Bilirubin AST ALT Alkaline Phosphatase Total Protein Albumin Globulin Albumin/Globulin Ratio CA 19-9 Antigen CA 125 Antigen Free T4 TSH 3rd Generation Estradiol (E2) Level Arterial Blood Potassium Urine HCG, Qual Blood Type Antibody Screen Fingerstick Blood Sugar Results: 162 Critical Care Progress Note - Nutrition Nutrition: Nutrition Category Date Time Status NPO Diet [DIET] Diets 08/04/16 Lunch Active
--- NOTE | 2016-08-06 11:58 | CP.PCM.PN ---
Subjective - Date & Time of Evaluation Date of Evaluation: 08/06/16 Time of Evaluation: 14:00 - Subjective Subjective: Patient seen and examined at bedside in ICU Status post exploratory laparotomy for left ruptured ovarian cyst postoperative day #1. Patient is extubated now. On Ventimask. Appears comfortable. Denies any pain Objective - Vital Signs/Intake and Output Vital Signs (last 24 hours): Temp Pulse Resp BP Pulse Ox 99 F 102 H 7 L 106/63 98 08/06/16 04:00 08/06/16 07:00 08/06/16 07:00 08/06/16 06:40 08/06/16 07:00 Intake and Output: 08/06/16 08/06/16 06:59 18:59 Intake Total 3068.0 143.4 Output Total 1110 50 Balance 1958.0 93.4 - Medications Medications: Current Medications Albuterol/Ipratropium (Duoneb 3 Mg/0.5 Mg (3 Ml) Ud) 3 ml INH RQ6 [facility] Last Admin: 08/06/16 08:35 Dose: 3 ml Enoxaparin Sodium (Lovenox) 30 mg SC DAILY [facility] Famotidine (Pepcid) 20 mg PO DAILY [facility] Piperacillin Sod/Tazobactam Sod (Zosyn 3.375 Gm Iv Premix) 3.375 gm in 50 mls @ 100 mls/hr IVPB Q6H [facility] Last Admin: 08/06/16 05:24 Dose: 100 mls/hr Potassium Phosphate 15 mmole/ (Sodium Chloride) 255 mls @ 63 mls/hr IV ONCE ONE Stop: 08/06/16 13:02 Lactated Ringer's (Lactated Ringer's) 1,000 mls @ 50 mls/hr IV .Q20H [facility] Stop: 08/06/16 14:00 Last Admin: 08/06/16 09:38 Dose: 50 mls/hr Sodium Phosphate 15 mmole/ (Sodium Chloride) 255 mls @ 50 mls/hr IVPB .Q5H6M ONE Stop: 08/06/16 14:50 Ibuprofen (Motrin Tab) 600 mg PO Q6H PRN PRN Reason: Pain, moderate (4-7) Insulin Aspart (Novolog) 0 unit SC ACHS [facility] PRN Reason: Protocol Insulin Glargine (Lantus) 10 unit SC HS [facility] Levothyroxine Sodium (Synthroid) 112 mcg PO 0630 [facility] Last Admin: 08/06/16 05:53 Dose: Not Given Oxycodone/Acetaminophen (Percocet 5/325 Mg Tab) 2 tab PO Q4H PRN PRN Reason: Pain, severe (8-10) Stop: 08/09/16 11:44 - Labs Labs: 08/06/16 06:20 08/06/16 06:18 PT 14.5 SECONDS (9.7-12.2) H 08/06/16 06:20 INR 1.3 08/06/16 06:20 APTT 33 SECONDS (21-34) 08/06/16 06:20 - Head Exam Head Exam: ATRAUMATIC, NORMOCEPHALIC - Eye Exam Eye Exam: EOMI, Normal appearance - ENT Exam ENT Exam: Mucous Membranes Moist - Cardiovascular Exam Cardiovascular Exam: REGULAR RHYTHM, +S1, +S2 - GI/Abdominal Exam GI & Abdominal Exam: Soft, Tenderness Additional comments: Dressing over the surgical scar. - Extremities Exam Extremities Exam: absent: Pedal Edema - Neurological Exam Neurological Exam: Alert, Awake, Oriented x3 Assessment and Plan (1) Acute abdominal pain Status: Acute (2) Diabetes mellitus type 2 in nonobese Status: Acute (3) Endometriosis Status: Acute (4) Hyperlipidemia associated with type 2 diabetes mellitus Status: Acute (5) Hypothyroidism (acquired) Status: Acute (6) ANIL (obstructive sleep apnea) Status: Acute (7) Tubo-ovarian abscess Status: Acute (8) HTN (hypertension) Status: Chronic - Assessment and Plan (Free Text) Plan: Status post to exclude laparotomy for ruptured left ovarian cyst with lysis of adhesions. Patient was intubated after the procedure is now extubated. Continue antibiotics. Patient is on Zosyn Patient is on Lantus and insulin sliding scale for diabetes mellitus We will continue the same Patient is also on Synthroid for hypothyroidism. We will continue the same Monitor blood pressure and start medication as needed Discussed with ICU staff.
[2016-08-06] MEDS: Oxycodone/Acetaminophen 5/325 mg Tab PO PRN ×2 (12:17→17:35)
[2016-08-06] MEDS: (Novolog) Insulin Aspart, Recombinant 100 u/ml 10 ml vial SC SCH ×3 (12:19→21:40)
--- NOTE | 2016-08-06 12:44 | RAD ---
HISTORY: intubated COMPARISON: Comparison is made to the previous study dated 08/05/2016 FINDINGS: LUNGS: Interval improvement in the lungs since the previous study. The ET tube seen at appropriate position. PLEURA: No significant pleural effusion identified, no pneumothorax apparent. CARDIOVASCULAR: Normal. OSSEOUS STRUCTURES: No significant abnormalities. VISUALIZED UPPER ABDOMEN: Normal. OTHER FINDINGS: NG tube seen extending to the stomach. IMPRESSION: Interval improvement in the lungs since the previous exam.
[2016-08-06] MEDS: Enoxaparin 30 mg Syringe SC SCH (17:36)
[2016-08-06] MEDS ORDERED: Albuterol-Ipratrop 3 mg / 0.5 (3 ml) UD INH PRN (18:02)
[2016-08-06] MEDS ORDERED: MethylPREDNISolone 40 mg Vial IVP SCH (18:15)
--- NOTE | 2016-08-06 20:55 | CP.PCM.PN ---
Subjective - Date & Time of Evaluation Date of Evaluation: 08/06/16 Time of Evaluation: 10:30 - Subjective Subjective: 46yo s/p exploratory laparotomy with removal of a left endometriotic cyst, POD # 1, clinically stable. Pt reports better pain control and has passed some gas. Objective - Vital Signs/Intake and Output Vital Signs (last 24 hours): Temp Pulse Resp BP Pulse Ox 98.6 F 100 H 14 109/75 99 08/06/16 16:00 08/06/16 19:57 08/06/16 19:57 08/06/16 19:57 08/06/16 19:57 Intake and Output: 08/06/16 08/07/16 18:59 06:59 Intake Total 1481.8 50 Output Total 800 Balance 681.8 50 - Medications Medications: Current Medications Albuterol/Ipratropium (Duoneb 3 Mg/0.5 Mg (3 Ml) Ud) 3 ml INH RQ6 [facility] Last Admin: 08/06/16 20:09 Dose: 3 ml Albuterol/Ipratropium (Duoneb 3 Mg/0.5 Mg (3 Ml) Ud) 3 ml INH RQ2 PRN PRN Reason: Shortness of Breath Last Admin: 08/06/16 18:05 Dose: 3 ml Alprazolam (Xanax) 0.25 mg PO TID PRN PRN Reason: Anxiety Stop: 08/13/16 14:02 Last Admin: 08/06/16 14:17 Dose: 0.25 mg Enoxaparin Sodium (Lovenox) 30 mg SC DAILY [facility] Last Admin: 08/06/16 17:36 Dose: 30 mg Famotidine (Pepcid) 20 mg PO DAILY [facility] Last Admin: 08/06/16 12:19 Dose: 20 mg Piperacillin Sod/Tazobactam Sod (Zosyn 3.375 Gm Iv Premix) 3.375 gm in 50 mls @ 100 mls/hr IVPB Q6H [facility] Last Admin: 08/06/16 17:37 Dose: 100 mls/hr Insulin Aspart (Novolog) 0 unit SC ACHS [facility] PRN Reason: Protocol Last Admin: 08/06/16 17:32 Dose: Not Given Insulin Glargine (Lantus) 10 unit SC HS [facility] Levothyroxine Sodium (Synthroid) 112 mcg PO 0630 [facility] Last Admin: 08/06/16 05:53 Dose: Not Given Morphine Sulfate (Morphine) 2 mg IVP Q4 PRN PRN Reason: Pain, moderate (4-7) Last Admin: 08/06/16 14:13 Dose: 2 mg Ondansetron HCl (Zofran Inj) 4 mg IVP Q6H PRN PRN Reason: Nausea/Vomiting Stop: 08/08/16 12:31 Oxycodone/Acetaminophen (Percocet 5/325 Mg Tab) 2 tab PO Q4H PRN PRN Reason: Pain, severe (8-10) Stop: 08/09/16 11:44 Last Admin: 08/06/16 17:35 Dose: 2 tab - Labs Labs: 08/06/16 06:20 08/06/16 06:18 PT 14.5 SECONDS (9.7-12.2) H 08/06/16 06:20 INR 1.3 08/06/16 06:20 APTT 33 SECONDS (21-34) 08/06/16 06:20 - Constitutional Appears: Well - Eye Exam Eye Exam: EOMI - Respiratory Exam Respiratory Exam: Clear to Ausculation Bilateral - Cardiovascular Exam Cardiovascular Exam: REGULAR RHYTHM - GI/Abdominal Exam GI & Abdominal Exam: Normal Bowel Sounds Additional comments: Incision : Clean and dry - Extremities Exam Extremities Exam: Normal Inspection - Neurological Exam Neurological Exam: Oriented x3 Assessment and Plan (1) Status post exploratory laparotomy Status: Acute (2) Endometriosis of pelvis Status: Acute - Assessment and Plan (Free Text) Plan: - Out of bed, - clear liquids , advance as needed - Oral pain medications - D/C Folleys catheter - Remove Dressing on abdominal incision.
[2016-08-06] MEDS: (Lantus) Insulin Glargine, Recombinant SC SCH (21:44)
--- NOTE | 2016-08-06 22:21 | OP ---
PROCEDURE DATE: 08/05/2016 PREOPERATIVE DIAGNOSIS: A 46-year-old female with acute abdominal pain with suspicion of a left ovarian cystic rupture of tubo-ovarian abscess. POSTOPERATIVE DIAGNOSIS: Acute abdomen from ruptured endometriotic cyst, pelvic endometriosis with dense adhesions and a left endometriotic cyst. PROCEDURE: Exploratory laparotomy with left ovarian cystectomy and release of pelvic and omental adhesions performed on 08/05/2016. SURGEON: Dr. Griffiths. REPAIRER AND CHECKER: Dr. Barriga. Assistance to this procedure was needed for exposure of tissues and help in the conduct of the surgery. The assistant to the vice president remained with the procedure throughout its entire length. Dr. Alicea provided an intraoperative surgical consult and explored the abdomen for additional pathology. TYPE OF ANESTHESIA: General endotracheal. Anesthesia was administered by Dr. Andrade, assisted by Dr. Sweeney. COMPLICATIONS: There were no complications. OPERATIVE FINDINGS: A dark serous fluid with brownish fibrinous deposits on some portions of the bowels and the omentum signifying a ruptured endometriotic cyst. The omentum as well as portion of the bowels were adhesed to a left cystic adnexal mass, size of 4.5 x 3.6 x 4.0 cm, also filled with mucinous chocolate fluid. The uterus as well as the posterior cul-de-sac were buried in dense pelvic adhesions secondary to pelvic endometriosis. The fallopian tubes on both sides were involved with the pelvic adhesions and the left fallopian tube was firmly attached to the left pelvic side wall. It started to bleed on separation from the wall and hemostasis was obtained. Intraoperative surgical consult was performed by Dr. Alicea, who explored the rest of the abdomen for possible pathology after the ovarian cystectomy. No pus pockets were identified. IV FLUID INTAKE: About 3000 mL. ESTIMATED BLOOD LOSS: 50 mL. URINE OUTPUT: 500 mL. SPECIMEN: Sent for pathology: 1. Peritoneal fluid for cytology. 2. Left ovarian cyst wall for histopathology. DESCRIPTION OF PROCEDURE: After obtaining informed consent and discussing with the patient the risks, benefits and alternatives to exploratory laparotomy and having all her questions answered, consent was obtained and the patient was sent to the OR with IV running and Whitt catheter in place. The patient was put in a supine position on the OR table, and after adequate general anesthesia , the patient was prepped and draped in a sterile fashion. A subumbilical midline incision was made using a scalpel. This incision was sent through the subcutaneous tissue so the rectus fascia was identified. A longitudinal incision was made in the rectus fascia and this was carried to both sides by means of Oquendo scissors. The underlying rectus muscle was from the peritoneum and the abdomen was entered after tenting the peritoneum between 2 Amanda clamps and sharply entering the abdomen with metzenbaum scissors and with good visualization of the underlying organs. When the abdominal cavity was entered, a brownish serous fluid was identified and fibrinous deposits were encountered on both the omentum and portions of the small intestine. Suctioning of this fluid was performed and was sent for cytology. There were adhesions of the omentum and portions of the bowels to the pelvic area. There was a left adnexal cyst of size 4.5 x 3.6 x 4.0 cm with clamping of the pelvic tissues around it. There were also omental adhesions to the sides and adhesiolysis and release of adhesions was performed using Metzenbaum scissors to get access to the left adnexal mass. Hemostasis was obtained using #2-0 plain catgut. The uterus and the cul-de-sac was almost obliterated by dense pelvic adhesions, mostly from pelvic endometriosis. The left fallopian tube was involved with adhesions to the left adnexal mass, which contained a chocolate cyst. Cystectomy was performed by excising the cyst wall using the Bovie device, and as the cyst was being dissected-, the cyst burst with discharge of about 20 - 30 mL of brownish chocolate fluid. These were suctioned off and the cyst wall was entirely removed from its cavity and this was sent for pathological evaluation. Bleeding and hemorrhage from the cyst cavity was stopped using #4-0 Biosyn. Once this has been completed, the pelvis was irrigated using warm normal saline and the fluid suctioned off. It was at this point that Dr. Alicea, general surgery, came in and explored the bowels and the other intra-abdominal organs for any pathology. No pathology was identified as well as no pus pockets were identified in the abdomen. Once hemostasis was reassured after inspecting the pelvis, some Surgicel were put in the pelvis where the cystectomy was done to ensure adequate hemostasis. Attention was turned to the anterior abdominal wall, which was closed in layers with 2-0 Vicryl for the peritoneum and the rectus muscles. The rectus fascia was reapproximated using Vicryl #0. The subcutaneous tissue was brought together by means of #2-0 plain. The skin was closed using zenon. All counts of instruments, laparotomy pads, and needles used were correct x 3 and the patient was sent to the recovery room awake and in stable condition. Shailesh Griffiths MD cc: [id number] TT: 08/06/2016 22:21:38 ru LOO
[2016-08-07] MEDS: Piperacill/Tazo 3.375gm in Dex 3.375 GM/50 ML BAG IVPB SCH ×5 (00:04→23:26)
[2016-08-07] MEDS: Albuterol-Ipratrop 3 mg / 0.5 (3 ml) UD INH SCH ×3 (01:21→19:23)
[2016-08-07] MEDS: Levothyroxine 112 MCG TAB PO SCH (06:55)
[2016-08-07 07:02] LABS: BASO # 0.1 K/uL (0.0-0.2); BASO % 0.3 % (0.0-2.0); HEMATOCRIT 27.7 % (34.0-47.0); LYMPH # 0.7 K/uL (1.0-4.3); MEAN CELL VOLUME 85.6 fL (81.0-99.0); MEAN CORPUSCULAR HEMOGLOBIN 26.9 pg (27.0-31.0); MEAN CORPUSCULAR HGB CONC 31.5 g/dL (33.0-37.0); MEAN PLATELET VOLUME 8.4 fL (7.2-11.7); MONO # 0.9 K/uL (0.0-0.8); MONO % 4.6 % (0.0-10.0); PLATELET COUNT 335 K/uL (130-400); RED CELL DISTRIBUTION WIDTH 13.7 % (11.5-14.5); WHITE BLOOD COUNT 18.8 K/uL (4.8-10.8)
[2016-08-07 07:03] LABS: CHLORIDE 107 mmol/L (98-107)
[2016-08-07 07:04] LABS: POTASSIUM 3.7 mmol/L (3.6-5.2); SODIUM 140 mmol/L (132-148)
[2016-08-07 07:06] LABS: ALKALINE PHOSPHATASE 53 U/L (38-126); AST/SGOT 41 U/L (14-36); BILIRUBIN,TOTAL 0.6 mg/dL (0.2-1.3); BLOOD UREA NITROGEN 14 mg/dL (7-17); CARBON DIOXIDE 20 mmol/L (22-30); GFR AFRICAN-AMERICAN > 60; TOTAL PROTEIN 6.6 g/dL (6.3-8.3)
[2016-08-07 07:07] LABS: ALT/SGPT 39 U/L (9-52); CALCIUM 7.7 mg/dl (8.6-10.4); GLUCOSE,RANDOM 115 mg/dL (65-105); MAGNESIUM 2.4 mg/dL (1.6-2.3); PHOSPHOROUS 2.4 mg/dL (2.5-4.5)
[2016-08-07] MEDS: (Novolog) Insulin Aspart, Recombinant 100 u/ml 10 ml vial SC SCH ×4 (09:02→22:42)
[2016-08-07 09:05] LABS: NEUTROPHIL 87 % (50-75); TOTAL CELLS COUNTED 100
[2016-08-07 09:06] LABS: LARGE PLATELETS PRESENT
[2016-08-07] MEDS ORDERED: Pneumococcal 23-Valent Vaccine IM ONE (10:00)
--- NOTE | 2016-08-07 10:44 | CP.PCM.PN ---
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 Tian Patient seen and examined at the bedside. No acute distress. No acute events overnight. Nursing staff reports no issues. The patient is POD #2 s/p ex lap with Dr. Griffiths. The patient tolerated the procedure. The patient remains NPO with NG tube to suction. The NGT has put out 550mL of drainage overnight. The patient continues to report abdominal pain with improvement from her presenting complaint. The patient has not passed flatus or had a BM since the OR. The patient is OOB this morning and seated in the bedside chair. The patient denies fever, chills, headache, chest pain, SOB, and extremity weakness/ paresthesias. Objective - Vital Signs/Intake and Output Vital Signs (last 24 hours): Temp Pulse Resp BP Pulse Ox 98 F 112 H 26 H 129/76 100 08/07/16 04:00 08/07/16 09:00 08/07/16 09:00 08/07/16 08:50 08/07/16 09:00 Intake and Output: 08/07/16 08/07/16 06:59 18:59 Intake Total 700 Output Total 1075 600 Balance -375 -600 - Medications Medications: Current Medications Albuterol/Ipratropium (Duoneb 3 Mg/0.5 Mg (3 Ml) Ud) 3 ml INH RQ6 [facility] Last Admin: 08/07/16 07:39 Dose: 3 ml Albuterol/Ipratropium (Duoneb 3 Mg/0.5 Mg (3 Ml) Ud) 3 ml INH RQ2 PRN PRN Reason: Shortness of Breath Last Admin: 08/06/16 18:05 Dose: 3 ml Alprazolam (Xanax) 0.25 mg PO TID PRN PRN Reason: Anxiety Stop: 08/13/16 14:02 Last Admin: 08/06/16 14:17 Dose: 0.25 mg Enoxaparin Sodium (Lovenox) 30 mg SC DAILY [facility] Last Admin: 08/06/16 17:36 Dose: 30 mg Famotidine (Pepcid) 20 mg PO DAILY [facility] Last Admin: 08/06/16 12:19 Dose: 20 mg Piperacillin Sod/Tazobactam Sod (Zosyn 3.375 Gm Iv Premix) 3.375 gm in 50 mls @ 100 mls/hr IVPB Q6H [facility] Last Admin: 08/07/16 05:00 Dose: 100 mls/hr Insulin Aspart (Novolog) 0 unit SC ACHS [facility] PRN Reason: Protocol Last Admin: 08/07/16 09:02 Dose: Not Given Insulin Glargine (Lantus) 10 unit SC HS [facility] Last Admin: 08/06/16 21:44 Dose: 10 u Levothyroxine Sodium (Synthroid) 112 mcg PO 0630 [facility] Last Admin: 08/07/16 06:55 Dose: 112 mcg Morphine Sulfate (Morphine) 2 mg IVP Q4 PRN PRN Reason: Pain, moderate (4-7) Last Admin: 08/07/16 09:11 Dose: 2 mg Ondansetron HCl (Zofran Inj) 4 mg IVP Q6H PRN PRN Reason: Nausea/Vomiting Stop: 08/08/16 12:31 Oxycodone/Acetaminophen (Percocet 5/325 Mg Tab) 2 tab PO Q4H PRN PRN Reason: Pain, severe (8-10) Stop: 08/09/16 11:44 Last Admin: 08/06/16 17:35 Dose: 2 tab Fluticasone/Salmeterol (Advair Diskus 250/50) 1 puff INH RQ12 [facility] - Labs Labs: 08/07/16 06:50 08/07/16 06:50 PT 14.5 SECONDS (9.7-12.2) H 08/06/16 06:20 INR 1.3 08/06/16 06:20 APTT 33 SECONDS (21-34) 08/06/16 06:20 - Constitutional Appears: Non-toxic, No Acute Distress - Head Exam Head Exam: ATRAUMATIC, NORMAL INSPECTION, NORMOCEPHALIC - Eye Exam Eye Exam: EOMI, Normal appearance Pupil Exam: NORMAL ACCOMODATION - ENT Exam ENT Exam: Mucous Membranes Moist, Normal Exam - Neck Exam Neck Exam: Full ROM, Normal Inspection. absent: Lymphadenopathy, Tenderness - Respiratory Exam Respiratory Exam: Clear to Ausculation Bilateral, NORMAL BREATHING PATTERN. absent: Rales, Rhonchi, Wheezes, Stridor - Cardiovascular Exam Cardiovascular Exam: Tachycardia, REGULAR RHYTHM, +S1, +S2. absent: Diastolic murmur, Murmur - GI/Abdominal Exam GI & Abdominal Exam: Soft, Tenderness (diffuse, increased tenderness about incision site), Normal Bowel Sounds. absent: Distended, Firm, Guarding, Rigid, Rebound Additional comments: Dressing Clean, Dry, Intact No Erythema No Exudate No Edema - Extremities Exam Extremities Exam: Full ROM, Normal Capillary Refill, Normal Inspection. absent : Joint Swelling, Pedal Edema - Neurological Exam Neurological Exam: Alert, Awake, CN II-XII Intact, Oriented x3 - Psychiatric Exam Psychiatric exam: Anxious - Skin Skin Exam: Dry, Intact, Normal Color, Warm Assessment and Plan (1) Abdominal pain Assessment & Plan: Afebrile WBC improving Mild Tachycardia Hemodynamically stable Whitt DC Activity: Up ad Tracy Continue Serial Abdominal Exams Continue NGT to suction Continue NPO Continue Pain Control- Morphine 2mg IV q4 PRN pain (4-7), Percocet 2tab PO q4 PRN Pain (8-10) Continue Zosyn 3.375g IV q6 Continue Zofran 4mg IV q6 PRN Nausea Internal Medicine Consultation Placed (Dr. Michaels)- help appreciated Urine for GC/Chlamydia ordered- pending 08/05/16 MRSA Nares- Negative 08/05/16 Abdominal Fluid Culture- Negative 08/04/16 Blood Culture- Negative 08/04/16 UA- negative for leukocyte esterase and nitrates 08/04/16 Trans Vaginal US- enlarged left ovary 6.3 x 6.2 x 6.3cm. Normal flow. Large ill-defined hypoechoic focus 4.9 x 2.3 x 5.1cm 08/04/16 CT A/P- moderate abdominal pelvic free fluid (Right side), complex cyst 6cm left ovarian/adnexal lesion. Small bowel findings most likely 2/2 to ileus Case Discussed with Dr. Jaylan Girard PGY1 Status: Acute (2) Ileus Assessment & Plan: Continue NGT to suction Continue NPO Status: Suspected (3) Tubo-ovarian abscess Status: Suspected (4) Endometrioma of ovary Status: Suspected (5) Endometriosis Status: Acute (6) HTN (hypertension) Status: Chronic (7) Diabetes mellitus type 2 in nonobese Assessment & Plan: Accucheck ACHS Lantus 10mg SC daily Novolog Sliding Scale HbA1c- 7.4 (elevated) Status: Acute (8) ANIL (obstructive sleep apnea) Status: Acute (9) Hyperlipidemia associated with type 2 diabetes mellitus Status: Acute (10) Hypothyroidism (acquired) Assessment & Plan: Levothyroxine 112mg PO Daily TSH- 0.54 (WNL) F T4- 1.12 (WNL) Status: Acute (11) Anxiety Assessment & Plan: xanax 0.25po TID PRN anxiety Status: Chronic (12) Asthma Assessment & Plan: Incentive spirometry Duonebs/Adviar for SOB Status: Chronic
[2016-08-07] MEDS: Enoxaparin 30 mg Syringe SC SCH (10:50)
[2016-08-07 11:06] LABS: INHIBIN A 2 pg/mL
--- NOTE | 2016-08-07 12:01 | CP.CCUPN ---
<Jordi Rivera - Last Filed: 08/07/16 11:52> CCU Subjective - Physician Review Subjective (Free Text): 08/07/16 11:53 PGY-1 progress note Pt seen and examined at bedside. Pt still reports abdominal pain. She denies any sob, nausea, vomiting, chest pain, MARINO, numbness or tingling. She does admit to some abdominal distention but says it is improved from the day before. Critical Care Time Spent (in minutes): 35 CCU Objective - Vital Signs / Intake & Output Vital Signs (Last 4 hours): Vital Signs Pulse Resp BP Pulse Ox 08/07/16 09:00 112 H 26 H 100 08/07/16 08:50 113 H 23 129/76 100 08/07/16 08:00 121 H 15 100 Intake and Output (Last 8hrs): Intake & Output 08/06/16 08/07/16 08/07/16 22:59 06:59 14:59 Intake Total 780 450 Output Total 600 775 600 Balance 180 -325 -600 Weight 164 lb 8 oz Intake: Intake, IV Amount 450 400 Right Wrist 450 400 Oral 330 50 Output: Drainage 500 Left Nare 500 Urine 600 775 100 Urethral (Whitt) 600 775 100 Other: # Bowel Movements 0 0 - Physical Exam Head: Positive for: Atraumatic, Normocephalic Pupils: Positive for: PERRL Nose (External): Positive for: Other (NG tube in place) Respiratory/Chest: Positive for: Clear to Auscultation, Good Air Exchange. Negative for: Respiratory Distress Cardiovascular: Positive for: Normal S1, S2 Abdomen: Positive for: Tenderness, Distention, Normal Bowel Sounds Upper Extremity: Positive for: NORMAL PULSES, Neurovascularly Intact Lower Extremity: Positive for: NORMAL PULSES, Neurovascularly Intact Neurological: Positive for: Speech Normal, Motor Func Grossly Intact Skin: Positive for: Warm, Dry Psychiatric: Positive for: Alert, Oriented x 3 - Medications Active Medications: Active Medications Generic Name Dose Route Start Last Admin Trade Name Freq PRN Reason Stop Dose Admin Albuterol/Ipratropium 3 ml 08/05/16 17:30 08/07/16 07:39 Duoneb 3 Mg/0.5 Mg (3 Ml) Ud INH 3 ml RQ6 DAMON Administration Albuterol/Ipratropium 3 ml 08/06/16 18:02 08/06/16 18:05 Duoneb 3 Mg/0.5 Mg (3 Ml) Ud INH 3 ml RQ2 PRN Administration Shortness of Breath Alprazolam 0.25 mg 08/06/16 14:01 08/06/16 14:17 Xanax PO 08/13/16 14:02 0.25 mg TID PRN Administration Anxiety Enoxaparin Sodium 30 mg 08/06/16 16:54 08/07/16 10:50 Lovenox SC 30 mg DAILY DAMON Administration Famotidine 20 mg 08/06/16 10:00 08/07/16 10:49 Pepcid PO Not Given DAILY DAMON Piperacillin Sod/Tazobactam Sod 3.375 gm in 50 mls @ 100 mls/hr 08/04/16 18: 00 08/07/16 05:00 Zosyn 3.375 Gm Iv Premix IVPB 100 mls/hr Q6H DAMON Administration Insulin Aspart 0 unit 08/06/16 11:30 08/07/16 09:02 Novolog SC Not Given ACHS [facility] Protocol Insulin Glargine 10 unit 08/06/16 22:00 08/06/16 21:44 Lantus SC 10 u HS DAMON Administration Levothyroxine Sodium 112 mcg 08/05/16 06:30 08/07/16 06:55 Synthroid PO 112 mcg 0630 DAMON Administration Morphine Sulfate 2 mg 08/06/16 14:01 08/07/16 09:11 Morphine IVP 2 mg Q4 PRN Administration Pain, moderate (4-7) Ondansetron HCl 4 mg 08/06/16 18:49 Zofran Inj IVP 08/08/16 12:31 Q6H PRN Nausea/Vomiting Oxycodone/Acetaminophen 2 tab 08/06/16 11:43 08/06/16 17:35 Percocet 5/325 Mg Tab PO 08/09/16 11:44 2 tab Q4H PRN Administration Pain, severe (8-10) Fluticasone/Salmeterol 1 puff 08/07/16 20:00 Advair Diskus 250/50 INH RQ12 DAMON - Patient Studies Lab Studies: Microbiology Studies 08/05/16 17:40 Gram Stain - Final Abdominal Fluid Body Fluid Culture - Preliminary NO GROWTH AFTER 2 DAYS 08/05/16 Unknown MRSA Culture (Admit) - Final Nose MRSA NOT DETECTED 08/04/16 15:30 Blood Culture - Preliminary Blood-Venous NO GROWTH AFTER 48 HOURS 08/04/16 15:30 Blood Culture - Preliminary Blood-Venous NO GROWTH AFTER 48 HOURS Lab Studies 08/07/16 08/07/16 08/07/16 Range/Units 06:50 06:50 06:32 WBC 18.8 H (4.8-10.8) K/uL RBC 3.24 L (3.80-5.20) Mil/uL Hgb 8.7 L (11.0-16.0) g/dL Hct 27.7 L (34.0-47.0) % MCV 85.6 (81.0-99.0) fL MCH 26.9 L (27.0-31.0) pg MCHC 31.5 L (33.0-37.0) g/dL RDW 13.7 (11.5-14.5) % Plt Count 335 (130-400) K/uL MPV 8.4 (7.2-11.7) fL Neut % (Auto) 91.1 H (50.0-75.0) % Lymph % (Auto) 4.0 L (20.0-40.0) % [place] % (Auto) 4.6 (0.0-10.0) % Eos % (Auto) 0.0 (0.0-4.0) % Baso % (Auto) 0.3 (0.0-2.0) % Neut # 17.1 H (1.8-7.0) K/uL Lymph # 0.7 L (1.0-4.3) K/uL [place] # 0.9 H (0.0-0.8) K/uL Eos # 0.0 (0.0-0.7) K/uL Baso # 0.1 (0.0-0.2) K/uL Neutrophils % (Manual) 87 H (50-75) % Band Neutrophils % 5 H (0-2) % Lymphocytes % (Manual) 4 L (20-40) % Monocytes % (Manual) 4 (0-10) % Platelet Estimate Normal (NORMAL) Large Platelets Present Hypochromasia (manual) Slight Poikilocytosis (manual Slight Anisocytosis (manual) Slight Microcytosis (manual) Slight Target Cells Slight Sodium 140 (132-148) mmol/L Potassium 3.7 (3.6-5.2) mmol/L Chloride 107 (98-107) mmol/L Carbon Dioxide 20 L (22-30) mmol/L Anion Gap 17 (10-20) BUN 14 (7-17) mg/dL Creatinine 0.6 L (0.7-1.2) MG/DL Est GFR ( Amer) > 60 Est GFR (Non-Af Amer) > 60 POC Glucose (mg/dL) 127 H (65-110) mg/dL Random Glucose 115 H (65-105) mg/dL Hemoglobin A1c (4.2-6.5) % Calcium 7.7 L (8.6-10.4) mg/dl Phosphorus 2.4 L (2.5-4.5) mg/dL Magnesium 2.4 H (1.6-2.3) mg/dL Total Bilirubin 0.6 (0.2-1.3) mg/dL AST 41 H (14-36) U/L ALT 39 (9-52) U/L Alkaline Phosphatase 53 (38-126) U/L Total Protein 6.6 (6.3-8.3) g/dL Albumin 3.3 L (3.5-5.0) g/dL Globulin 3.2 (2.2-3.9) gm/dL Albumin/Globulin Ratio 1.0 (1.0-2.1) Inhibin A pg/mL C.trachomatis RNA (TMA) (Not Detected) N.gonorrhoeae RNA (TMA) (Not Detected) 08/06/16 08/06/16 08/06/16 Range/Units 21:39 16:40 11:55 WBC (4.8-10.8) K/uL RBC (3.80-5.20) Mil/uL Hgb (11.0-16.0) g/dL Hct (34.0-47.0) % MCV (81.0-99.0) fL MCH (27.0-31.0) pg MCHC (33.0-37.0) g/dL RDW (11.5-14.5) % Plt Count (130-400) K/uL MPV (7.2-11.7) fL Neut % (Auto) (50.0-75.0) % Lymph % (Auto) (20.0-40.0) % [place] % (Auto) (0.0-10.0) % Eos % (Auto) (0.0-4.0) % Baso % (Auto) (0.0-2.0) % Neut # (1.8-7.0) K/uL Lymph # (1.0-4.3) K/uL [place] # (0.0-0.8) K/uL Eos # (0.0-0.7) K/uL Baso # (0.0-0.2) K/uL Neutrophils % (Manual) (50-75) % Band Neutrophils % (0-2) % Lymphocytes % (Manual) (20-40) % Monocytes % (Manual) (0-10) % Platelet Estimate (NORMAL) Large Platelets Hypochromasia (manual) Poikilocytosis (manual Anisocytosis (manual) Microcytosis (manual) Target Cells Sodium (132-148) mmol/L Potassium (3.6-5.2) mmol/L Chloride (98-107) mmol/L Carbon Dioxide (22-30) mmol/L Anion Gap (10-20) BUN (7-17) mg/dL Creatinine (0.7-1.2) MG/DL Est GFR ( Amer) Est GFR (Non-Af Amer) POC Glucose (mg/dL) 144 H 88 141 H (65-110) mg/dL Random Glucose (65-105) mg/dL Hemoglobin A1c (4.2-6.5) % Calcium (8.6-10.4) mg/dl Phosphorus (2.5-4.5) mg/dL Magnesium (1.6-2.3) mg/dL Total Bilirubin (0.2-1.3) mg/dL AST (14-36) U/L ALT (9-52) U/L Alkaline Phosphatase (38-126) U/L Total Protein (6.3-8.3) g/dL Albumin (3.5-5.0) g/dL Globulin (2.2-3.9) gm/dL Albumin/Globulin Ratio (1.0-2.1) Inhibin A pg/mL C.trachomatis RNA (TMA) (Not Detected) N.gonorrhoeae RNA (TMA) (Not Detected) 08/05/16 08/05/16 08/04/16 Range/Units 08:56 08:56 19:47 WBC (4.8-10.8) K/uL RBC (3.80-5.20) Mil/uL Hgb (11.0-16.0) g/dL Hct (34.0-47.0) % MCV (81.0-99.0) fL MCH (27.0-31.0) pg MCHC (33.0-37.0) g/dL RDW (11.5-14.5) % Plt Count (130-400) K/uL MPV (7.2-11.7) fL Neut % (Auto) (50.0-75.0) % Lymph % (Auto) (20.0-40.0) % [place] % (Auto) (0.0-10.0) % Eos % (Auto) (0.0-4.0) % Baso % (Auto) (0.0-2.0) % Neut # (1.8-7.0) K/uL Lymph # (1.0-4.3) K/uL [place] # (0.0-0.8) K/uL Eos # (0.0-0.7) K/uL Baso # (0.0-0.2) K/uL Neutrophils % (Manual) (50-75) % Band Neutrophils % (0-2) % Lymphocytes % (Manual) (20-40) % Monocytes % (Manual) (0-10) % Platelet Estimate (NORMAL) Large Platelets Hypochromasia (manual) Poikilocytosis (manual Anisocytosis (manual) Microcytosis (manual) Target Cells Sodium (132-148) mmol/L Potassium (3.6-5.2) mmol/L Chloride (98-107) mmol/L Carbon Dioxide (22-30) mmol/L Anion Gap (10-20) BUN (7-17) mg/dL Creatinine (0.7-1.2) MG/DL Est GFR ( Amer) Est GFR (Non-Af Amer) POC Glucose (mg/dL) (65-110) mg/dL Random Glucose (65-105) mg/dL Hemoglobin A1c 7.4 H (4.2-6.5) % Calcium (8.6-10.4) mg/dl Phosphorus (2.5-4.5) mg/dL Magnesium (1.6-2.3) mg/dL Total Bilirubin (0.2-1.3) mg/dL AST (14-36) U/L ALT (9-52) U/L Alkaline Phosphatase (38-126) U/L Total Protein (6.3-8.3) g/dL Albumin (3.5-5.0) g/dL Globulin (2.2-3.9) gm/dL Albumin/Globulin Ratio (1.0-2.1) Inhibin A 2 pg/mL C.trachomatis RNA (TMA) Not detected (Not Detected) N.gonorrhoeae RNA (TMA) Not detected (Not Detected) Laboratory Results - last 24 hr 08/04/16 08/05/16 08/05/16 19:47 08:56 08:56 WBC RBC Hgb Hct MCV MCH MCHC RDW Plt Count MPV Neut % (Auto) Lymph % (Auto) [place] % (Auto) Eos % (Auto) Baso % (Auto) Neut # Lymph # [place] # Eos # Baso # Neutrophils % (Manual) Band Neutrophils % Lymphocytes % (Manual) Monocytes % (Manual) Platelet Estimate Large Platelets Hypochromasia (manual) Poikilocytosis (manual Anisocytosis (manual) Microcytosis (manual) Target Cells Sodium Potassium Chloride Carbon Dioxide Anion Gap BUN Creatinine Est GFR ( Amer) Est GFR (Non-Af Amer) POC Glucose (mg/dL) Random Glucose Hemoglobin A1c 7.4 H Calcium Phosphorus Magnesium Total Bilirubin AST ALT Alkaline Phosphatase Total Protein Albumin Globulin Albumin/Globulin Ratio Inhibin A 2 C.trachomatis RNA (TMA) Not detected N.gonorrhoeae RNA (TMA) Not detected 08/06/16 08/06/16 08/06/16 11:55 16:40 21:39 WBC RBC Hgb Hct MCV MCH MCHC RDW Plt Count MPV Neut % (Auto) Lymph % (Auto) [place] % (Auto) Eos % (Auto) Baso % (Auto) Neut # Lymph # [place] # Eos # Baso # Neutrophils % (Manual) Band Neutrophils % Lymphocytes % (Manual) Monocytes % (Manual) Platelet Estimate Large Platelets Hypochromasia (manual) Poikilocytosis (manual Anisocytosis (manual) Microcytosis (manual) Target Cells Sodium Potassium Chloride Carbon Dioxide Anion Gap BUN Creatinine Est GFR ( Amer) Est GFR (Non-Af Amer) POC Glucose (mg/dL) 141 H 88 144 H Random Glucose Hemoglobin A1c Calcium Phosphorus Magnesium Total Bilirubin AST ALT Alkaline Phosphatase Total Protein Albumin Globulin Albumin/Globulin Ratio Inhibin A C.trachomatis RNA (TMA) N.gonorrhoeae RNA (TMA) 08/07/16 08/07/16 08/07/16 06:32 06:50 06:50 WBC 18.8 H RBC 3.24 L Hgb 8.7 L Hct 27.7 L MCV 85.6 MCH 26.9 L MCHC 31.5 L RDW 13.7 Plt Count 335 MPV 8.4 Neut % (Auto) 91.1 H Lymph % (Auto) 4.0 L [place] % (Auto) 4.6 Eos % (Auto) 0.0 Baso % (Auto) 0.3 Neut # 17.1 H Lymph # 0.7 L [place] # 0.9 H Eos # 0.0 Baso # 0.1 Neutrophils % (Manual) 87 H Band Neutrophils % 5 H Lymphocytes % (Manual) 4 L Monocytes % (Manual) 4 Platelet Estimate Normal Large Platelets Present Hypochromasia (manual) Slight Poikilocytosis (manual Slight Anisocytosis (manual) Slight Microcytosis (manual) Slight Target Cells Slight Sodium 140 Potassium 3.7 Chloride 107 Carbon Dioxide 20 L Anion Gap 17 BUN 14 Creatinine 0.6 L Est GFR ( Amer) > 60 Est GFR (Non-Af Amer) > 60 POC Glucose (mg/dL) 127 H Random Glucose 115 H Hemoglobin A1c Calcium 7.7 L Phosphorus 2.4 L Magnesium 2.4 H Total Bilirubin 0.6 AST 41 H ALT 39 Alkaline Phosphatase 53 Total Protein 6.6 Albumin 3.3 L Globulin 3.2 Albumin/Globulin Ratio 1.0 Inhibin A C.trachomatis RNA (TMA) N.gonorrhoeae RNA (TMA) Fingerstick Blood Sugar Results: 127 Review of Systems - Review of Systems All systems: reviewed and no additional remarkable complaints except (where noted in the HPI) Critical Care Progress Note - Nutrition Nutrition: Nutrition Category Date Time Status Liquid Diet [DIET] Diets 08/06/16 Lunch Active Assessment/Plan - Assessment and Plan (Free Text) Assessment: 46 yo F with right ruptured ovarian cyst s/p ex-lap POD #2. Plan: Neuro: AAOx3 No acute issues Xanax prn anxiety Pulm: Saturating well, no respiratory distress. Continue duonebs. Add advair. Encouraged incentive spirometer use CV: Hemodynamically stable GI: Still slightly distended. NG tube with 550 output yesterday. No nausea/ vomiting. Continue to monitor Renal: No acute issues Endo: Sliding scale coverage. COntinue home levothyroxine ID: Zosyn started on 08/04. Afebrile. Leukocytosis trending down, continue to monitor Heme: Hgb stable, no acute issues. DVT ppx - lovenox GI ppx - Protonix Pt status - full code <NareshJose Maria - Last Filed: 08/07/16 18:52> CCU Objective - Vital Signs / Intake & Output Vital Signs (Last 4 hours): Vital Signs Temp Pulse Resp BP Pulse Ox 08/07/16 17:00 93 H 31 H 97 08/07/16 16:50 97 H 29 H 151/91 H 98 08/07/16 16:00 98.6 F 102 H 28 H 97 08/07/16 15:50 148/87 08/07/16 15:00 100 H 25 H 96 Intake and Output (Last 8hrs): Intake & Output 08/07/16 08/07/16 08/07/16 06:59 14:59 22:59 Intake Total 450 Output Total 775 950 150 Balance -325 -950 -150 Weight 164 lb 8 oz Intake: Intake, IV Amount 400 Right Wrist 400 Oral 50 Output: Drainage 500 Left Nare 500 Urine 775 450 150 Urethral (Whitt) 775 450 150 Other: # Bowel Movements 0 - Medications Active Medications: Active Medications Generic Name Dose Route Start Last Admin Trade Name Freq PRN Reason Stop Dose Admin Albuterol/Ipratropium 3 ml 08/05/16 17:30 08/07/16 07:39 Duoneb 3 Mg/0.5 Mg (3 Ml) Ud INH 3 ml RQ6 DAMON Administration Albuterol/Ipratropium 3 ml 08/06/16 18:02 08/06/16 18:05 Duoneb 3 Mg/0.5 Mg (3 Ml) Ud INH 3 ml RQ2 PRN Administration Shortness of Breath Alprazolam 0.25 mg 08/06/16 14:01 08/06/16 14:17 Xanax PO 08/13/16 14:02 0.25 mg TID PRN Administration Anxiety Enoxaparin Sodium 30 mg 08/06/16 16:54 08/07/16 10:50 Lovenox SC 30 mg DAILY [facility] Administration Famotidine 20 mg 08/06/16 10:00 08/07/16 10:49 Pepcid PO Not Given DAILY [facility] Piperacillin Sod/Tazobactam Sod 3.375 gm in 50 mls @ 100 mls/hr 08/04/16 18: 00 08/07/16 12:00 Zosyn 3.375 Gm Iv Premix IVPB 100 mls/hr Q6H [facility] Administration Insulin Aspart 0 unit 08/06/16 11:30 08/07/16 17:04 Novolog SC Not Given ACHS [facility] Protocol Insulin Glargine 10 unit 08/06/16 22:00 08/06/16 21:44 Lantus SC 10 u HS [facility] Administration Levothyroxine Sodium 112 mcg 08/05/16 06:30 08/07/16 06:55 Synthroid PO 112 mcg 0630 [facility] Administration Morphine Sulfate 2 mg 08/06/16 14:01 08/07/16 14:26 Morphine IVP 2 mg Q4 PRN Administration Pain, moderate (4-7) Ondansetron HCl 4 mg 08/06/16 18:49 Zofran Inj IVP 08/08/16 12:31 Q6H PRN Nausea/Vomiting Oxycodone/Acetaminophen 2 tab 08/06/16 11:43 08/06/16 17:35 Percocet 5/325 Mg Tab PO 08/09/16 11:44 2 tab Q4H PRN Administration Pain, severe (8-10) Fluticasone/Salmeterol 1 puff 08/07/16 20:00 Advair Diskus 250/50 INH RQ12 [facility] - Patient Studies Lab Studies: Microbiology Studies 08/04/16 15:30 Blood Culture - Preliminary Blood-Venous NO GROWTH AFTER 3 DAYS 08/04/16 15:30 Blood Culture - Preliminary Blood-Venous NO GROWTH AFTER 3 DAYS 08/05/16 10:27 Mycobacterial Culture - Preliminary Other: Please Indicate 08/05/16 17:40 Gram Stain - Final Abdominal Fluid Body Fluid Culture - Preliminary NO GROWTH AFTER 2 DAYS 08/05/16 Unknown MRSA Culture (Admit) - Final Nose MRSA NOT DETECTED Lab Studies 08/07/16 08/07/16 08/07/16 Range/Units 16:01 13:08 06:50 WBC (4.8-10.8) K/uL RBC (3.80-5.20) Mil/uL Hgb (11.0-16.0) g/dL Hct (34.0-47.0) % MCV (81.0-99.0) fL MCH (27.0-31.0) pg MCHC (33.0-37.0) g/dL RDW (11.5-14.5) % Plt Count (130-400) K/uL MPV (7.2-11.7) fL Neut % (Auto) (50.0-75.0) % Lymph % (Auto) (20.0-40.0) % [place] % (Auto) (0.0-10.0) % Eos % (Auto) (0.0-4.0) % Baso % (Auto) (0.0-2.0) % Neut # (1.8-7.0) K/uL Lymph # (1.0-4.3) K/uL [place] # (0.0-0.8) K/uL Eos # (0.0-0.7) K/uL Baso # (0.0-0.2) K/uL Neutrophils % (Manual) (50-75) % Band Neutrophils % (0-2) % Lymphocytes % (Manual) (20-40) % Monocytes % (Manual) (0-10) % Platelet Estimate (NORMAL) Large Platelets Hypochromasia (manual) Poikilocytosis (manual Anisocytosis (manual) Microcytosis (manual) Target Cells Sodium 140 (132-148) mmol/L Potassium 3.7 (3.6-5.2) mmol/L Chloride 107 (98-107) mmol/L Carbon Dioxide 20 L (22-30) mmol/L Anion Gap 17 (10-20) BUN 14 (7-17) mg/dL Creatinine 0.6 L (0.7-1.2) MG/DL Est GFR ( Amer) > 60 Est GFR (Non-Af Amer) > 60 POC Glucose (mg/dL) 108 118 H (65-110) mg/dL Random Glucose 115 H (65-105) mg/dL Hemoglobin A1c (4.2-6.5) % Calcium 7.7 L (8.6-10.4) mg/dl Phosphorus 2.4 L (2.5-4.5) mg/dL Magnesium 2.4 H (1.6-2.3) mg/dL Total Bilirubin 0.6 (0.2-1.3) mg/dL AST 41 H (14-36) U/L ALT 39 (9-52) U/L Alkaline Phosphatase 53 (38-126) U/L Total Protein 6.6 (6.3-8.3) g/dL Albumin 3.3 L (3.5-5.0) g/dL Globulin 3.2 (2.2-3.9) gm/dL Albumin/Globulin Ratio 1.0 (1.0-2.1) Inhibin A pg/mL C.trachomatis RNA (TMA) (Not Detected) N.gonorrhoeae RNA (TMA) (Not Detected) 08/07/16 08/07/16 08/06/16 Range/Units 06:50 06:32 21:39 WBC 18.8 H (4.8-10.8) K/uL RBC 3.24 L (3.80-5.20) Mil/uL Hgb 8.7 L (11.0-16.0) g/dL Hct 27.7 L (34.0-47.0) % MCV 85.6 (81.0-99.0) fL MCH 26.9 L (27.0-31.0) pg MCHC 31.5 L (33.0-37.0) g/dL RDW 13.7 (11.5-14.5) % Plt Count 335 (130-400) K/uL MPV 8.4 (7.2-11.7) fL Neut % (Auto) 91.1 H (50.0-75.0) % Lymph % (Auto) 4.0 L (20.0-40.0) % [place] % (Auto) 4.6 (0.0-10.0) % Eos % (Auto) 0.0 (0.0-4.0) % Baso % (Auto) 0.3 (0.0-2.0) % Neut # 17.1 H (1.8-7.0) K/uL Lymph # 0.7 L (1.0-4.3) K/uL [place] # 0.9 H (0.0-0.8) K/uL Eos # 0.0 (0.0-0.7) K/uL Baso # 0.1 (0.0-0.2) K/uL Neutrophils % (Manual) 87 H (50-75) % Band Neutrophils % 5 H (0-2) % Lymphocytes % (Manual) 4 L (20-40) % Monocytes % (Manual) 4 (0-10) % Platelet Estimate Normal (NORMAL) Large Platelets Present Hypochromasia (manual) Slight Poikilocytosis (manual Slight Anisocytosis (manual) Slight Microcytosis (manual) Slight Target Cells Slight Sodium (132-148) mmol/L Potassium (3.6-5.2) mmol/L Chloride (98-107) mmol/L Carbon Dioxide (22-30) mmol/L Anion Gap (10-20) BUN (7-17) mg/dL Creatinine (0.7-1.2) MG/DL Est GFR ( Amer) Est GFR (Non-Af Amer) POC Glucose (mg/dL) 127 H 144 H (65-110) mg/dL Random Glucose (65-105) mg/dL Hemoglobin A1c (4.2-6.5) % Calcium (8.6-10.4) mg/dl Phosphorus (2.5-4.5) mg/dL Magnesium (1.6-2.3) mg/dL Total Bilirubin (0.2-1.3) mg/dL AST (14-36) U/L ALT (9-52) U/L Alkaline Phosphatase (38-126) U/L Total Protein (6.3-8.3) g/dL Albumin (3.5-5.0) g/dL Globulin (2.2-3.9) gm/dL Albumin/Globulin Ratio (1.0-2.1) Inhibin A pg/mL C.trachomatis RNA (TMA) (Not Detected) N.gonorrhoeae RNA (TMA) (Not Detected) 05/13/17 05/13/17 05/12/17 Range/Units 08:56 08:56 19:47 WBC (4.8-10.8) K/uL RBC (3.80-5.20) Mil/uL Hgb (11.0-16.0) g/dL Hct (34.0-47.0) % MCV (81.0-99.0) fL MCH (27.0-31.0) pg MCHC (33.0-37.0) g/dL RDW (11.5-14.5) % Plt Count (130-400) K/uL MPV (7.2-11.7) fL Neut % (Auto) (50.0-75.0) % Lymph % (Auto) (20.0-40.0) % [place] % (Auto) (0.0-10.0) % Eos % (Auto) (0.0-4.0) % Baso % (Auto) (0.0-2.0) % Neut # (1.8-7.0) K/uL Lymph # (1.0-4.3) K/uL [place] # (0.0-0.8) K/uL Eos # (0.0-0.7) K/uL Baso # (0.0-0.2) K/uL Neutrophils % (Manual) (50-75) % Band Neutrophils % (0-2) % Lymphocytes % (Manual) (20-40) % Monocytes % (Manual) (0-10) % Platelet Estimate (NORMAL) Large Platelets Hypochromasia (manual) Poikilocytosis (manual Anisocytosis (manual) Microcytosis (manual) Target Cells Sodium (132-148) mmol/L Potassium (3.6-5.2) mmol/L Chloride (98-107) mmol/L Carbon Dioxide (22-30) mmol/L Anion Gap (10-20) BUN (7-17) mg/dL Creatinine (0.7-1.2) MG/DL Est GFR ( Amer) Est GFR (Non-Af Amer) POC Glucose (mg/dL) (65-110) mg/dL Random Glucose (65-105) mg/dL Hemoglobin A1c 7.4 H (4.2-6.5) % Calcium (8.6-10.4) mg/dl Phosphorus (2.5-4.5) mg/dL Magnesium (1.6-2.3) mg/dL Total Bilirubin (0.2-1.3) mg/dL AST (14-36) U/L ALT (9-52) U/L Alkaline Phosphatase (38-126) U/L Total Protein (6.3-8.3) g/dL Albumin (3.5-5.0) g/dL Globulin (2.2-3.9) gm/dL Albumin/Globulin Ratio (1.0-2.1) Inhibin A 2 pg/mL C.trachomatis RNA (TMA) Not detected (Not Detected) N.gonorrhoeae RNA (TMA) Not detected (Not Detected) Laboratory Results - last 24 hr 08/04/16 08/05/16 08/05/16 19:47 08:56 08:56 WBC RBC Hgb Hct MCV MCH MCHC RDW Plt Count MPV Neut % (Auto) Lymph % (Auto) [place] % (Auto) Eos % (Auto) Baso % (Auto) Neut # Lymph # [place] # Eos # Baso # Neutrophils % (Manual) Band Neutrophils % Lymphocytes % (Manual) Monocytes % (Manual) Platelet Estimate Large Platelets Hypochromasia (manual) Poikilocytosis (manual Anisocytosis (manual) Microcytosis (manual) Target Cells Sodium Potassium Chloride Carbon Dioxide Anion Gap BUN Creatinine Est GFR ( Amer) Est GFR (Non-Af Amer) POC Glucose (mg/dL) Random Glucose Hemoglobin A1c 7.4 H Calcium Phosphorus Magnesium Total Bilirubin AST ALT Alkaline Phosphatase Total Protein Albumin Globulin Albumin/Globulin Ratio Inhibin A 2 C.trachomatis RNA (TMA) Not detected N.gonorrhoeae RNA (TMA) Not detected 08/06/16 08/07/16 08/07/16 21:39 06:32 06:50 WBC 18.8 H RBC 3.24 L Hgb 8.7 L Hct 27.7 L MCV 85.6 MCH 26.9 L MCHC 31.5 L RDW 13.7 Plt Count 335 MPV 8.4 Neut % (Auto) 91.1 H Lymph % (Auto) 4.0 L [place] % (Auto) 4.6 Eos % (Auto) 0.0 Baso % (Auto) 0.3 Neut # 17.1 H Lymph # 0.7 L [place] # 0.9 H Eos # 0.0 Baso # 0.1 Neutrophils % (Manual) 87 H Band Neutrophils % 5 H Lymphocytes % (Manual) 4 L Monocytes % (Manual) 4 Platelet Estimate Normal Large Platelets Present Hypochromasia (manual) Slight Poikilocytosis (manual Slight Anisocytosis (manual) Slight Microcytosis (manual) Slight Target Cells Slight Sodium Potassium Chloride Carbon Dioxide Anion Gap BUN Creatinine Est GFR ( Amer) Est GFR (Non-Af Amer) POC Glucose (mg/dL) 144 H 127 H Random Glucose Hemoglobin A1c Calcium Phosphorus Magnesium Total Bilirubin AST ALT Alkaline Phosphatase Total Protein Albumin Globulin Albumin/Globulin Ratio Inhibin A C.trachomatis RNA (TMA) N.gonorrhoeae RNA (TMA) 08/07/16 08/07/16 08/07/16 06:50 13:08 16:01 WBC RBC Hgb Hct MCV MCH MCHC RDW Plt Count MPV Neut % (Auto) Lymph % (Auto) [place] % (Auto) Eos % (Auto) Baso % (Auto) Neut # Lymph # [place] # Eos # Baso # Neutrophils % (Manual) Band Neutrophils % Lymphocytes % (Manual) Monocytes % (Manual) Platelet Estimate Large Platelets Hypochromasia (manual) Poikilocytosis (manual Anisocytosis (manual) Microcytosis (manual) Target Cells Sodium 140 Potassium 3.7 Chloride 107 Carbon Dioxide 20 L Anion Gap 17 BUN 14 Creatinine 0.6 L Est GFR ( Amer) > 60 Est GFR (Non-Af Amer) > 60 POC Glucose (mg/dL) 118 H 108 Random Glucose 115 H Hemoglobin A1c Calcium 7.7 L Phosphorus 2.4 L Magnesium 2.4 H Total Bilirubin 0.6 AST 41 H ALT 39 Alkaline Phosphatase 53 Total Protein 6.6 Albumin 3.3 L Globulin 3.2 Albumin/Globulin Ratio 1.0 Inhibin A C.trachomatis RNA (TMA) N.gonorrhoeae RNA (TMA) Critical Care Progress Note - Nutrition Nutrition: Nutrition Category Date Time Status Liquid Diet [DIET] Diets 08/06/16 Lunch Active Attending/Attestation - Attestation I have personally seen and examined this patient.: Yes I have fully participated in the care of the patient.: Yes I have reviewed all pertinent clinical information: Yes
[2016-08-07] MEDS: Oxycodone/Acetaminophen 5/325 mg Tab PO PRN (19:02)
[2016-08-07] MEDS: Fluticasone-Salmeterol 250-50mcg Diskus INH SCH (19:23)
[2016-08-07] MEDS: (Lantus) Insulin Glargine, Recombinant SC SCH (22:43)
[2016-08-08] MEDS: Albuterol-Ipratrop 3 mg / 0.5 (3 ml) UD INH SCH ×5 (01:01→23:26)
[2016-08-08] MEDS: Piperacill/Tazo 3.375gm in Dex 3.375 GM/50 ML BAG IVPB SCH ×3 (05:40→17:44)
[2016-08-08] MEDS: Levothyroxine 112 MCG TAB PO SCH (05:42)
[2016-08-08] MEDS: Fluticasone-Salmeterol 250-50mcg Diskus INH SCH ×2 (08:14→20:04)
[2016-08-08] MEDS: (Novolog) Insulin Aspart, Recombinant 100 u/ml 10 ml vial SC SCH ×4 (08:14→21:42)
[2016-08-08] MEDS: Oxycodone/Acetaminophen 5/325 mg Tab PO PRN ×3 (08:32→19:57)
[2016-08-08 08:36] LABS: BASO % 0.5 % (0.0-2.0); EOS # 0.1 K/uL (0.0-0.7); EOS % 0.7 % (0.0-4.0); HEMATOCRIT 28.3 % (34.0-47.0); LYMPH # 1.3 K/uL (1.0-4.3); LYMPH % 11.5 % (20.0-40.0); MEAN PLATELET VOLUME 8.1 fL (7.2-11.7); MONO # 0.9 K/uL (0.0-0.8); MONO % 8.1 % (0.0-10.0); RED CELL DISTRIBUTION WIDTH 13.6 % (11.5-14.5); WHITE BLOOD COUNT 10.9 K/uL (4.8-10.8)
--- NOTE | 2016-08-08 08:40 | CP.PCM.PN ---
<Kanu Lopez - Last Filed: 08/08/16 10:50> Subjective - Date & Time of Evaluation Date of Evaluation: 08/08/16 Time of Evaluation: 08:00 - Subjective Subjective: OBGYN NOTE 46F seen and examined at bedside. Patient states she still has some abdominal pain, she is tolerating regular diet, denies nausea, vomiting, Admits to passing gas. No acute events overnight. Patient moved to OBGYN floor from ICU. Objective - Vital Signs/Intake and Output Vital Signs (last 24 hours): Temp Pulse Resp BP Pulse Ox 98.4 F 84 20 148/84 96 08/08/16 04:00 08/08/16 04:00 08/08/16 04:00 08/08/16 04:00 08/08/16 04:00 - Medications Medications: Current Medications Albuterol/Ipratropium (Duoneb 3 Mg/0.5 Mg (3 Ml) Ud) 3 ml INH RQ6 [facility] Last Admin: 08/08/16 08:14 Dose: 3 ml Albuterol/Ipratropium (Duoneb 3 Mg/0.5 Mg (3 Ml) Ud) 3 ml INH RQ2 PRN PRN Reason: Shortness of Breath Last Admin: 08/06/16 18:05 Dose: 3 ml Enoxaparin Sodium (Lovenox) 30 mg SC DAILY [facility] Last Admin: 08/07/16 10:50 Dose: 30 mg Famotidine (Pepcid) 20 mg PO DAILY [facility] Last Admin: 08/07/16 10:49 Dose: Not Given Piperacillin Sod/Tazobactam Sod (Zosyn 3.375 Gm Iv Premix) 3.375 gm in 50 mls @ 100 mls/hr IVPB Q6H [facility] Last Admin: 08/08/16 05:40 Dose: 100 mls/hr Insulin Aspart (Novolog) 0 unit SC ACHS [facility] PRN Reason: Protocol Last Admin: 08/08/16 08:14 Dose: 2 unit Insulin Glargine (Lantus) 10 unit SC HS [facility] Last Admin: 08/07/16 22:43 Dose: 10 unit Levothyroxine Sodium (Synthroid) 112 mcg PO 0630 [facility] Last Admin: 08/08/16 05:42 Dose: 112 mcg Morphine Sulfate (Morphine) 2 mg IVP Q4 PRN PRN Reason: Pain, moderate (4-7) Last Admin: 08/07/16 14:26 Dose: 2 mg Ondansetron HCl (Zofran Inj) 4 mg IVP Q6H PRN PRN Reason: Nausea/Vomiting Stop: 08/08/16 12:31 Last Admin: 08/07/16 23:50 Dose: 4 mg Oxycodone/Acetaminophen (Percocet 5/325 Mg Tab) 2 tab PO Q4H PRN PRN Reason: Pain, severe (8-10) Stop: 08/09/16 11:44 Last Admin: 08/08/16 08:32 Dose: 2 tab Fluticasone/Salmeterol (Advair Diskus 250/50) 1 puff INH RQ12 [facility] Last Admin: 08/08/16 08:14 Dose: 1 puff Zolpidem Tartrate (Ambien) 5 mg PO HS PRN PRN Reason: Anxiety Last Admin: 08/07/16 23:25 Dose: 5 mg - Labs Labs: 08/08/16 08:22 08/07/16 06:50 PT 14.5 SECONDS (9.7-12.2) H 08/06/16 06:20 INR 1.3 08/06/16 06:20 APTT 33 SECONDS (21-34) 08/06/16 06:20 - Constitutional Appears: Non-toxic, No Acute Distress - Head Exam Head Exam: ATRAUMATIC - Respiratory Exam Respiratory Exam: Clear to Ausculation Bilateral, Rales (left mid) - Cardiovascular Exam Cardiovascular Exam: REGULAR RHYTHM, +S1, +S2 - GI/Abdominal Exam GI & Abdominal Exam: Soft. absent: Distended, Firm, Guarding, Rigid, Tenderness , Rebound Additional comments: dressing CDI. - Extremities Exam Extremities Exam: Pedal Edema - Neurological Exam Neurological Exam: Alert, Awake - Skin Skin Exam: Dry, Intact, Normal Color, Warm Assessment and Plan - Assessment and Plan (Free Text) Assessment: 46F s/p left ovarian cystectomy POD#3 for ruptured ovarian cyst. Plan: - continue to monitor diet - serial abdominal exams - WBC trending down to 10.9, continue antibiotics - pain control - encourage Incentive spirometer use - Discontinue NG tube - Remove dressing, monitor wound Discussed with Dr. Kiet Lopez, PGY1 <Fredis Santa - Last Filed: 08/08/16 14:34> Objective - Vital Signs/Intake and Output Vital Signs (last 24 hours): Temp Pulse Resp BP Pulse Ox 98.7 F 68 20 149/81 98 08/08/16 07:30 08/08/16 07:30 08/08/16 07:30 08/08/16 07:30 08/08/16 07:30 Intake and Output: 08/08/16 08/08/16 06:59 18:59 Intake Total 120 Output Total 0 Balance 120 - Medications Medications: Current Medications Albuterol/Ipratropium (Duoneb 3 Mg/0.5 Mg (3 Ml) Ud) 3 ml INH RQ6 [facility] Last Admin: 08/08/16 13:53 Dose: 3 ml Albuterol/Ipratropium (Duoneb 3 Mg/0.5 Mg (3 Ml) Ud) 3 ml INH RQ2 PRN PRN Reason: Shortness of Breath Last Admin: 08/06/16 18:05 Dose: 3 ml Enoxaparin Sodium (Lovenox) 30 mg SC DAILY [facility] Last Admin: 08/08/16 10:16 Dose: 30 mg Famotidine (Pepcid) 20 mg PO DAILY [facility] Last Admin: 08/08/16 10:18 Dose: 20 mg Piperacillin Sod/Tazobactam Sod (Zosyn 3.375 Gm Iv Premix) 3.375 gm in 50 mls @ 100 mls/hr IVPB Q6H [facility] Last Admin: 08/08/16 11:46 Dose: 100 mls/hr Insulin Aspart (Novolog) 0 unit SC ACHS [facility] PRN Reason: Protocol Last Admin: 08/08/16 12:18 Dose: 2 unit Insulin Glargine (Lantus) 10 unit SC HS [facility] Last Admin: 08/07/16 22:43 Dose: 10 unit Levothyroxine Sodium (Synthroid) 112 mcg PO 0630 [facility] Last Admin: 08/08/16 05:42 Dose: 112 mcg Morphine Sulfate (Morphine) 2 mg IVP Q4 PRN PRN Reason: Pain, moderate (4-7) Last Admin: 08/07/16 14:26 Dose: 2 mg Oxycodone/Acetaminophen (Percocet 5/325 Mg Tab) 2 tab PO Q4H PRN PRN Reason: Pain, severe (8-10) Stop: 08/09/16 11:44 Last Admin: 08/08/16 08:32 Dose: 2 tab Fluticasone/Salmeterol (Advair Diskus 250/50) 1 puff INH RQ12 [facility] Last Admin: 08/08/16 08:14 Dose: 1 puff Zolpidem Tartrate (Ambien) 5 mg PO HS PRN PRN Reason: Anxiety Last Admin: 08/07/16 23:25 Dose: 5 mg - Labs Labs: 08/08/16 08:22 08/07/16 06:50 PT 14.5 SECONDS (9.7-12.2) H 08/06/16 06:20 INR 1.3 08/06/16 06:20 APTT 33 SECONDS (21-34) 08/06/16 06:20 Attending/Attestation - Attestation I have personally seen and examined this patient.: Yes I have fully participated in the care of the patient.: Yes I have reviewed all pertinent clinical information, including history, physical exam and plan: Yes Notes (Text): 08/08/16 14:31 patient s/op exlap, ovarian cystectomy, lysis of adhesions.Clinically improving.wbc trending down.Diet advanced.Po pain meds encourage ambulation, incentive spirometer use and po fluid intake If stable consider discharge in am
[2016-08-08] MEDS: Enoxaparin 30 mg Syringe SC SCH (10:16)
--- NOTE | 2016-08-08 17:14 | CP.PCM.PN ---
<Aston Estrada - Last Filed: 08/09/16 18:06> Subjective - Date & Time of Evaluation Date of Evaluation: 08/08/16 Time of Evaluation: 11:35 - Subjective Subjective: PT seen and examined. Pt complaining of abdominal pain and nausea. She reports that she vomited overnight. Pt reports that she had a bowel movement overnight. Pt reports shortness of breath. Pt denies fever, chills, chest pain. Objective - Vital Signs/Intake and Output Vital Signs (last 24 hours): Temp Pulse Resp BP Pulse Ox 98.7 F 68 20 149/81 98 08/08/16 07:30 08/08/16 07:30 08/08/16 07:30 08/08/16 07:30 08/08/16 07:30 Intake and Output: 08/08/16 08/08/16 06:59 18:59 Intake Total 120 Output Total 0 Balance 120 - Medications Medications: Current Medications Albuterol/Ipratropium (Duoneb 3 Mg/0.5 Mg (3 Ml) Ud) 3 ml INH RQ6 [facility] Last Admin: 08/08/16 13:53 Dose: 3 ml Albuterol/Ipratropium (Duoneb 3 Mg/0.5 Mg (3 Ml) Ud) 3 ml INH RQ2 PRN PRN Reason: Shortness of Breath Last Admin: 08/06/16 18:05 Dose: 3 ml Enoxaparin Sodium (Lovenox) 30 mg SC DAILY [facility] Last Admin: 08/08/16 10:16 Dose: 30 mg Famotidine (Pepcid) 20 mg PO DAILY [facility] Last Admin: 08/08/16 10:18 Dose: 20 mg Piperacillin Sod/Tazobactam Sod (Zosyn 3.375 Gm Iv Premix) 3.375 gm in 50 mls @ 100 mls/hr IVPB Q6H [facility] Last Admin: 08/08/16 11:46 Dose: 100 mls/hr Insulin Aspart (Novolog) 0 unit SC ACHS [facility] PRN Reason: Protocol Last Admin: 08/08/16 12:18 Dose: 2 unit Insulin Glargine (Lantus) 10 unit SC HS [facility] Last Admin: 08/07/16 22:43 Dose: 10 unit Levothyroxine Sodium (Synthroid) 112 mcg PO 0630 [facility] Last Admin: 08/08/16 05:42 Dose: 112 mcg Morphine Sulfate (Morphine) 2 mg IVP Q4 PRN PRN Reason: Pain, moderate (4-7) Last Admin: 08/07/16 14:26 Dose: 2 mg Oxycodone/Acetaminophen (Percocet 5/325 Mg Tab) 2 tab PO Q4H PRN PRN Reason: Pain, severe (8-10) Stop: 08/09/16 11:44 Last Admin: 08/08/16 15:00 Dose: 2 tab Fluticasone/Salmeterol (Advair Diskus 250/50) 1 puff INH RQ12 [facility] Last Admin: 08/08/16 08:14 Dose: 1 puff Zolpidem Tartrate (Ambien) 5 mg PO HS PRN PRN Reason: Anxiety Last Admin: 08/07/16 23:25 Dose: 5 mg - Labs Labs: 08/08/16 08:22 08/07/16 06:50 PT 14.5 SECONDS (9.7-12.2) H 08/06/16 06:20 INR 1.3 08/06/16 06:20 APTT 33 SECONDS (21-34) 08/06/16 06:20 - Constitutional Appears: No Acute Distress - Head Exam Head Exam: ATRAUMATIC, NORMOCEPHALIC - Eye Exam Eye Exam: EOMI, PERRL - ENT Exam ENT Exam: Mucous Membranes Moist - Neck Exam Neck Exam: Full ROM. absent: Lymphadenopathy - Respiratory Exam Respiratory Exam: Clear to Ausculation Bilateral. absent: Rales, Rhonchi, Wheezes - Cardiovascular Exam Cardiovascular Exam: +S1, +S2. absent: Gallop, Rubs - GI/Abdominal Exam GI & Abdominal Exam: Soft, Tenderness. absent: Distended, Normal Bowel Sounds - Extremities Exam Extremities Exam: Pedal Edema Additional comments: Trace pedal edema - Neurological Exam Neurological Exam: Alert, Awake, Oriented x3 - Psychiatric Exam Psychiatric exam: Normal Affect, Normal Mood - Skin Skin Exam: Normal Color, Warm Assessment and Plan - Assessment and Plan (Free Text) Assessment: Ruptured ovarian cyst: PT day 4 s/p left ovarian cystectomy Management as per OB Diabetes Mellitus: Glucose well controlled Lantus 10 units SC hs Regular insulin sliding scale for coverage Asthma: Duonebs q4h eliecer Duonebs q2h prn Advair 1 puff INH rq12 HTN: Zestril 10 mg po qd Hypothyroidism: Levothryoxine 112 mc po qd Prophylactic Measures: GI: Pepcid 20 mg po qd DVT: Lovenox 30 mg sc qd, SCDs held due to b/l lower extremity edema, pending venous dopplers <Yahir Kent - Last Filed: 08/13/16 17:21> Objective - Vital Signs/Intake and Output Vital Signs (last 24 hours): Temp Pulse Resp BP Pulse Ox 99 F 86 20 122/82 99 08/09/16 23:07 08/09/16 23:07 08/09/16 23:07 08/09/16 23:07 08/09/16 20:00 - Labs Labs: 08/10/16 04:00 08/10/16 04:00 PT 14.5 SECONDS (9.7-12.2) H 08/06/16 06:20 INR 1.3 08/06/16 06:20 APTT 33 SECONDS (21-34) 08/06/16 06:20 Attending/Attestation - Attestation I have personally seen and examined this patient.: Yes I have fully participated in the care of the patient.: Yes I have reviewed all pertinent clinical information, including history, physical exam and plan: Yes Notes (Text): 08/13/16 17:20 Patient was seen and examined at 5:40 PM 08/09/16 History, Exam, Assessment and Plan were thoroughly gone over with the resident. Yahir Kent D.O.
--- NOTE | 2016-08-08 19:05 | CARD ---
APPROVED REPORT EKG Measurement Heart [id number] <Conclusion> Sinus tachycardia Low voltage QRS Possible Anterolateral infarct, age undetermined Abnormal ECG
[2016-08-08] MEDS: (Lantus) Insulin Glargine, Recombinant SC SCH (21:53)
[2016-08-09] MEDS: Albuterol-Ipratrop 3 mg / 0.5 (3 ml) UD INH SCH ×6 (04:54→23:27)
[2016-08-09] MEDS: Levothyroxine 112 MCG TAB PO SCH (05:45)
[2016-08-09] MEDS: Piperacill/Tazo 3.375gm in Dex 3.375 GM/50 ML BAG IVPB SCH ×3 (05:45→11:19)
[2016-08-09] MEDS ORDERED: Oxycodone/Acetaminophen 5/325 mg Tab PO PRN (07:19)
[2016-08-09 08:03] LABS: BASO % 0.4 % (0.0-2.0); EOS # 0.3 K/uL (0.0-0.7); EOS % 2.7 % (0.0-4.0); HEMATOCRIT 28.9 % (34.0-47.0); LYMPH # 1.8 K/uL (1.0-4.3); LYMPH % 19.1 % (20.0-40.0); MEAN CELL VOLUME 84.1 fL (81.0-99.0); MEAN CORPUSCULAR HEMOGLOBIN 28.1 pg (27.0-31.0); MEAN CORPUSCULAR HGB CONC 33.4 g/dL (33.0-37.0); MEAN PLATELET VOLUME 7.8 fL (7.2-11.7); MONO # 0.8 K/uL (0.0-0.8); MONO % 8.9 % (0.0-10.0); RED CELL DISTRIBUTION WIDTH 13.6 % (11.5-14.5); WHITE BLOOD COUNT 9.4 K/uL (4.8-10.8)
[2016-08-09] MEDS: Fluticasone-Salmeterol 250-50mcg Diskus INH SCH ×2 (08:11→20:05)
[2016-08-09] MEDS: (Novolog) Insulin Aspart, Recombinant 100 u/ml 10 ml vial SC SCH ×4 (08:11→22:43)
--- NOTE | 2016-08-09 08:26 | CP.PCM.PN ---
Subjective - Date & Time of Evaluation Date of Evaluation: 08/09/16 Time of Evaluation: 08:00 - Subjective Subjective: Patient received in room 462, standing at sink. Reports decreased appetite; nausea, vomiting. Last passed flatus 2 days ago. (+) small BM 1 day ago. Incisional pain, now 10/02 - to be medicated. Onset of menses "right after the surgery" - probably 08/06/16; wearing a sanitary napkin Objective - Vital Signs/Intake and Output Vital Signs (last 24 hours): Temp Pulse Resp BP Pulse Ox 98.9 F 73 18 149/83 99 08/09/16 07:47 08/09/16 07:47 08/09/16 07:47 08/09/16 07:47 08/09/16 07:47 - Medications Medications: Current Medications Albuterol/Ipratropium (Duoneb 3 Mg/0.5 Mg (3 Ml) Ud) 3 ml INH RQ2 PRN PRN Reason: Shortness of Breath Last Admin: 08/06/16 18:05 Dose: 3 ml Albuterol/Ipratropium (Duoneb 3 Mg/0.5 Mg (3 Ml) Ud) 3 ml INH RQ4 [facility] Last Admin: 08/09/16 08:11 Dose: 3 ml Docusate Sodium (Colace) 100 mg PO BID PRN PRN Reason: Constipation Enoxaparin Sodium (Lovenox) 30 mg SC DAILY [facility] Last Admin: 08/08/16 10:16 Dose: 30 mg Famotidine (Pepcid) 20 mg PO DAILY [facility] Last Admin: 08/08/16 10:18 Dose: 20 mg Piperacillin Sod/Tazobactam Sod (Zosyn 3.375 Gm Iv Premix) 3.375 gm in 50 mls @ 100 mls/hr IVPB Q6H [facility] Last Admin: 08/09/16 05:45 Dose: 100 mls/hr Insulin Aspart (Novolog) 0 unit SC ACHS [facility] PRN Reason: Protocol Last Admin: 08/09/16 08:11 Dose: 2 unit Insulin Glargine (Lantus) 10 unit SC HS [facility] Last Admin: 08/08/16 21:53 Dose: 10 unit Levothyroxine Sodium (Synthroid) 112 mcg PO 0630 [facility] Last Admin: 08/09/16 05:45 Dose: 112 mcg Lisinopril (Zestril) 10 mg PO DAILY [facility] Oxycodone/Acetaminophen (Percocet 5/325 Mg Tab) 1 tab PO Q4H PRN PRN Reason: Pain Stop: 08/12/16 07:18 Oxycodone/Acetaminophen (Percocet 5/325 Mg Tab) 2 tab PO Q4H PRN PRN Reason: Pain, severe (8-10) Stop: 08/09/16 11:44 Last Admin: 08/09/16 08:12 Dose: 2 tab Fluticasone/Salmeterol (Advair Diskus 250/50) 1 puff INH RQ12 [facility] Last Admin: 08/09/16 08:11 Dose: 1 puff Silver Sulfadiazine (Silvadene 1% 20 Gm) 0 ea TOP TID [facility] Zolpidem Tartrate (Ambien) 5 mg PO HS PRN PRN Reason: Anxiety Last Admin: 08/07/16 23:25 Dose: 5 mg - Labs Labs: 08/09/16 07:52 08/07/16 06:50 PT 14.5 SECONDS (9.7-12.2) H 08/06/16 06:20 INR 1.3 08/06/16 06:20 APTT 33 SECONDS (21-34) 08/06/16 06:20 - Constitutional Appears: Well, Non-toxic, No Acute Distress - Head Exam Head Exam: NORMAL INSPECTION - ENT Exam ENT Exam: Mucous Membranes Moist - Neck Exam Neck Exam: Full ROM - Respiratory Exam Respiratory Exam: NORMAL BREATHING PATTERN Additional comments: Decreased breath sounds bilaterally at bases - Cardiovascular Exam Cardiovascular Exam: REGULAR RHYTHM - GI/Abdominal Exam GI & Abdominal Exam: Normal Bowel Sounds Additional comments: Vertical incision with zenon - clean, dry and intact. 2 areas of denuded skin (site of previous tape) - Extremities Exam Extremities Exam: Full ROM, Normal Inspection - Back Exam Back Exam: NORMAL INSPECTION - Neurological Exam Neurological Exam: Alert, Awake, Normal Gait, Oriented x3 - Skin Skin Exam: Dry, Normal Color, Warm Assessment and Plan - Assessment and Plan (Free Text) Assessment: HD#6/POD#4 46 yo P0, S/P exp lap with left ovarian cystectomy, lysis of adhesions for ruptured endometriotic cyst, abdominial pain and elevated WBC. No evidence of salpingo-oophoritis at time of surgery. Endometriosis re-affirmed at time of surgery. Patient is doing well; afebrile, vital signs stable. Slowly returning GI function: passed flatus 2 days, none since; no BM. Laboratory data reviewed: WBC 9.4; H/H stable at 9.6/28.9. Patient with multiple medical conditions: asthma/ sleep apnea; DM; hypothyroid; HTN - all of which are well controlled. Medicine Team on board - thank you. Findings at surgery and procedures performed were discussed at length with patient. Patient instructed to ambulate outside her room today: this will facilitate GI motility and passage of flatus; and improve her lung functions. Patient reassured that onset of menses is a normal physiologic response to the degree of stress she has recently undergone. Lastly, discussed with patient, prudence of resuming a new pack of OCs with her next menses to ameliorate the recurrence of both endometrioma and physiologic ovarian cyst(s). Patient expressed an understanding and agrees. Patient is clinically stable. Plan: 1) OOB and ambulate 2) Silvadene cream - apply to affected areas TID 3) Discontinue IV antibiotics 4) Continue present medical managemt 5) Anticipate discharge home 08/10/16
[2016-08-09] MEDS: Silver Sulfadiazine 1% Cream (20 gm) TOP SCH ×3 (10:07→17:15)
[2016-08-09] MEDS: Enoxaparin 30 mg Syringe SC SCH (10:08)
[2016-08-09 11:45] LABS: CHLORIDE 96 mmol/L (98-107); SODIUM 133 mmol/L (132-148)
[2016-08-09 11:47] LABS: GFR AFRICAN-AMERICAN > 60
[2016-08-09 11:48] LABS: ALB/GLOB RATIO 1.1 (1.0-2.1); ALKALINE PHOSPHATASE 56 U/L (38-126); ALT/SGPT 33 U/L (9-52); AST/SGOT 30 U/L (14-36); BILIRUBIN,TOTAL 0.5 mg/dL (0.2-1.3); BLOOD UREA NITROGEN 8 mg/dL (7-17); CARBON DIOXIDE 27 mmol/L (22-30); GLUCOSE,RANDOM 144 mg/dL (65-105); PHOSPHOROUS 3.2 mg/dL (2.5-4.5); TOTAL PROTEIN 6.5 g/dL (6.3-8.3)
[2016-08-09 11:49] LABS: CALCIUM 7.8 mg/dl (8.6-10.4); MAGNESIUM 1.7 mg/dL (1.6-2.3)
[2016-08-09 12:01] LABS: POTASSIUM 2.5 mmol/L (3.6-5.2)
[2016-08-09] MEDS: Potassium Chloride 20 mEq ER Tab PO SCH ×3 (12:14→21:38)
[2016-08-09] MEDS: Oxycodone/Acetaminophen 5/325 mg Tab PO PRN ×2 (12:40→19:43)
[2016-08-09 17:31] VITALS: RESP 20
--- NOTE | 2016-08-09 18:13 | CP.PCM.PN ---
<Aston Estrada - Last Filed: 08/09/16 18:07> Subjective - Date & Time of Evaluation Date of Evaluation: 08/09/16 Time of Evaluation: 07:35 - Subjective Subjective: Pt seen and examined. Pt reports that she is feeling much better today. Pt reports that she feels bloated. Pt denies fever, chills, chest pain, shortness of breath, nausea, and vomiting. Objective - Vital Signs/Intake and Output Vital Signs (last 24 hours): Temp Pulse Resp BP Pulse Ox 98.1 F 107 H 20 117/79 100 08/09/16 17:00 08/09/16 17:00 08/09/16 17:00 08/09/16 17:00 08/09/16 17:00 - Medications Medications: Current Medications Albuterol/Ipratropium (Duoneb 3 Mg/0.5 Mg (3 Ml) Ud) 3 ml INH RQ2 PRN PRN Reason: Shortness of Breath Last Admin: 08/06/16 18:05 Dose: 3 ml Albuterol/Ipratropium (Duoneb 3 Mg/0.5 Mg (3 Ml) Ud) 3 ml INH RQ4 [facility] Last Admin: 08/09/16 15:39 Dose: 3 ml Docusate Sodium (Colace) 100 mg PO BID PRN PRN Reason: Constipation Last Admin: 08/09/16 10:09 Dose: 100 mg Enoxaparin Sodium (Lovenox) 30 mg SC DAILY [facility] Last Admin: 08/09/16 10:08 Dose: 30 mg Famotidine (Pepcid) 20 mg PO DAILY [facility] Last Admin: 08/09/16 10:08 Dose: 20 mg Insulin Aspart (Novolog) 0 unit SC ACHS [facility] PRN Reason: Protocol Last Admin: 08/09/16 16:43 Dose: 4 unit Insulin Glargine (Lantus) 10 unit SC HS [facility] Last Admin: 08/08/16 21:53 Dose: 10 unit Levothyroxine Sodium (Synthroid) 112 mcg PO 0630 [facility] Last Admin: 08/09/16 05:45 Dose: 112 mcg Lisinopril (Zestril) 10 mg PO DAILY [facility] Last Admin: 08/09/16 10:08 Dose: 10 mg Oxycodone/Acetaminophen (Percocet 5/325 Mg Tab) 1 tab PO Q4H PRN PRN Reason: Pain Stop: 08/12/16 07:18 Last Admin: 08/09/16 12:40 Dose: 1 tab Potassium Chloride (K-Dur 20 Meq Er Tab) 40 meq PO Q4H [facility] Stop: 08/09/16 20:16 Last Admin: 08/09/16 16:43 Dose: 40 meq Fluticasone/Salmeterol (Advair Diskus 250/50) 1 puff INH RQ12 [facility] Last Admin: 08/09/16 08:11 Dose: 1 puff Silver Sulfadiazine (Silvadene 1% 20 Gm) 0 ea TOP TID [facility] Last Admin: 08/09/16 17:15 Dose: 1 applic Zolpidem Tartrate (Ambien) 5 mg PO HS PRN PRN Reason: Anxiety Last Admin: 08/07/16 23:25 Dose: 5 mg - Labs Labs: 08/09/16 07:52 08/09/16 11:25 PT 14.5 SECONDS (9.7-12.2) H 08/06/16 06:20 INR 1.3 08/06/16 06:20 APTT 33 SECONDS (21-34) 08/06/16 06:20 - Constitutional Appears: No Acute Distress - Head Exam Head Exam: ATRAUMATIC, NORMOCEPHALIC - Eye Exam Eye Exam: EOMI, PERRL - ENT Exam ENT Exam: Mucous Membranes Moist. absent: Mucous Membranes Dry - Respiratory Exam Respiratory Exam: Clear to Ausculation Bilateral. absent: Rales, Rhonchi, Wheezes - Cardiovascular Exam Cardiovascular Exam: +S1, +S2. absent: Gallop, Rubs - GI/Abdominal Exam GI & Abdominal Exam: Soft, Tenderness. absent: Distended, Rigid - Extremities Exam Extremities Exam: Pedal Edema - Neurological Exam Neurological Exam: Alert, Awake, Oriented x3 - Psychiatric Exam Psychiatric exam: Normal Affect, Normal Mood - Skin Skin Exam: Normal Color, Warm Assessment and Plan - Assessment and Plan (Free Text) Assessment: Ruptured ovarian cyst: Pt day 4 s/p left ovarian cystectomy Management as per OB Hypokalemia: K+2.5 K-dur 40 meq x 3 doses q4h given F/U BMP Diabetes Mellitus: Glucose well controlled Lantus 10 units SC hs Regular insulin sliding scale for coverage Asthma: Duonebs q4h eliecer Duonebs q2h prn Advair 1 puff INH rq12 HTN: Zestril 10 mg po qd Hypothyroidism: Levothryoxine 112 mc po qd Prophylactic Measures: GI: Pepcid 20 mg po qd DVT: Lovenox 30 mg sc qd, SCDs held due to b/l lower extremity edema, pending venous dopplers Colace 100 mg po prn for constipation Percocet prn for pain <Yahir Kent - Last Filed: 08/13/16 17:28> Objective - Vital Signs/Intake and Output Vital Signs (last 24 hours): Temp Pulse Resp BP Pulse Ox 99 F 86 20 122/82 99 08/09/16 23:07 08/09/16 23:07 08/09/16 23:07 08/09/16 23:07 08/09/16 20:00 - Labs Labs: 08/10/16 04:00 08/10/16 04:00 PT 14.5 SECONDS (9.7-12.2) H 08/06/16 06:20 INR 1.3 08/06/16 06:20 APTT 33 SECONDS (21-34) 08/06/16 06:20 Attending/Attestation - Attestation I have personally seen and examined this patient.: Yes I have fully participated in the care of the patient.: Yes I have reviewed all pertinent clinical information, including history, physical exam and plan: Yes Notes (Text): 08/13/16 17:27 This patient was seen and examined at 5:40 PM 08/09/16 History, Exam, Assessment and Plan were thoroughly gone over with resident Yahir Kent D.O.
[2016-08-09] MEDS ORDERED: Potassium Chloride 20 mEq ER Tab PO STA (21:18)
[2016-08-09] MEDS: (Lantus) Insulin Glargine, Recombinant SC SCH (22:43)
[2016-08-09 23:07] VITALS: O2SAT 99
[2016-08-09 23:08] VITALS: BP 122/82; PULSE 86; TEMP 99
[2016-08-10] MEDS: Albuterol-Ipratrop 3 mg / 0.5 (3 ml) UD INH SCH (03:30)
[2016-08-10 08:25] LABS: BASO % 0.4 % (0.0-2.0); EOS # 0.4 K/uL (0.0-0.7); EOS % 3.5 % (0.0-4.0); HEMATOCRIT 29.9 % (34.0-47.0); LYMPH % 17.1 % (20.0-40.0); MEAN CELL VOLUME 84.2 fL (81.0-99.0); MEAN CORPUSCULAR HEMOGLOBIN 27.4 pg (27.0-31.0); MEAN CORPUSCULAR HGB CONC 32.5 g/dL (33.0-37.0); MEAN PLATELET VOLUME 8.2 fL (7.2-11.7); MONO # 0.8 K/uL (0.0-0.8); MONO % 7.2 % (0.0-10.0); NRBC % 0.1 % (0.0-2.0); RED CELL DISTRIBUTION WIDTH 13.4 % (11.5-14.5); WHITE BLOOD COUNT 11.7 K/uL (4.8-10.8)
[2016-08-10 08:40] LABS: CHLORIDE 101 mmol/L (98-107); POTASSIUM 3.5 mmol/L (3.6-5.2); SODIUM 136 mmol/L (132-148)
[2016-08-10 08:41] LABS: BLOOD UREA NITROGEN 7 mg/dL (7-17); CALCIUM 7.8 mg/dl (8.6-10.4); CARBON DIOXIDE 25 mmol/L (22-30); GFR AFRICAN-AMERICAN > 60; GLUCOSE,RANDOM 124 mg/dL (65-105)
--- NOTE | 2016-08-10 19:09 | CP.PCM.PN ---
<Erna Michaels V - Last Filed: 08/10/16 20:09> Objective - Vital Signs/Intake and Output Vital Signs (last 24 hours): Temp Pulse Resp BP Pulse Ox 99 F 86 20 122/82 99 08/09/16 23:07 08/09/16 23:07 08/09/16 23:07 08/09/16 23:07 08/09/16 20:00 - Labs Labs: 08/09/16 07:52 08/10/16 04:00 PT 14.5 SECONDS (9.7-12.2) H 08/06/16 06:20 INR 1.3 08/06/16 06:20 APTT 33 SECONDS (21-34) 08/06/16 06:20 Attending/Attestation - Attestation I have personally seen and examined this patient.: Yes I have fully participated in the care of the patient.: Yes I have reviewed all pertinent clinical information, including history, physical exam and plan: Yes Notes (Text): Patient seen, examined, and case discussed with day-time resident. Patient seen this morning. Patient describes minimal abdominal pain and tolerating diet at bedside. Patient denies acute complaints. 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 Patient potassium improved to 3.5 Patient to follow-up with OB on Sunday for staple removal. Patient to follow-up with her PMD in [place] for all other chronic conditions. Assessment/Plan 1) Ruptured ovarian cyst Pt is Post-OP day 5 s/p left ovarian cystectomy Management as per OB Per OB, patient is stable for discharge today 2) Hypokalemia Improved to 3.5 Tolerating diet at bedside Asymptomatic 3) Diabetes Mellitus: Glucose well controlled Lantus 10 units SC hs Regular insulin sliding scale for coverage 4) Asthma, history of Duonebs q4h eliecer Duonebs q2h prn Advair 1 puff INH rq12 Patient is not in acute exacerbation 5) HTN: Zestril 10 mg po qdaily 6) Hypothyroidism: Levothyroxine 112 mc po qd 7) Prophylactic Measures: GI: Pepcid 20 mg po qd DVT: Lovenox 30 mg sc qd, SCDs held due to b/l lower extremity edema, pending venous dopplers Colace 100 mg po prn for constipation Percocet prn for pain <Aston Estrada - Last Filed: 08/15/16 00:18> Subjective - Date & Time of Evaluation Date of Evaluation: 08/10/16 Time of Evaluation: 09:15 - Subjective Subjective: Pt seen and examined. Pt reports that she is feeling much better today. Pt reports her abdominal pain has improved. Pt denies fever, chills, chest pain, shortness of breath, nausea, and vomiting. Objective - Vital Signs/Intake and Output Vital Signs (last 24 hours): Temp Pulse Resp BP Pulse Ox 99 F 86 20 122/82 99 08/09/16 23:07 08/09/16 23:07 08/09/16 23:07 08/09/16 23:07 08/09/16 20:00 - Labs Labs: 08/09/16 07:52 08/09/16 11:25 PT 14.5 SECONDS (9.7-12.2) H 08/06/16 06:20 INR 1.3 08/06/16 06:20 APTT 33 SECONDS (21-34) 08/06/16 06:20 - Constitutional Appears: No Acute Distress - Head Exam Head Exam: ATRAUMATIC, NORMOCEPHALIC - Eye Exam Eye Exam: EOMI, PERRL - ENT Exam ENT Exam: Mucous Membranes Moist. absent: Mucous Membranes Dry - Respiratory Exam Respiratory Exam: absent: Rales, Rhonchi, Wheezes - Cardiovascular Exam Cardiovascular Exam: +S1, +S2. absent: Gallop, Rubs - GI/Abdominal Exam GI & Abdominal Exam: Soft, Tenderness. absent: Distended, Normal Bowel Sounds - Extremities Exam Extremities Exam: Full ROM. absent: Pedal Edema - Neurological Exam Neurological Exam: Alert, Awake, Oriented x3 - Psychiatric Exam Psychiatric exam: Normal Affect, Normal Mood - Skin Skin Exam: Normal Color, Warm Assessment and Plan - Assessment and Plan (Free Text) Assessment: Ruptured ovarian cyst: Pt day 5 s/p left ovarian cystectomy Management as per OB Hypokalemia: Resolved Diabetes Mellitus: Glucose well controlled Lantus 10 units SC hs Regular insulin sliding scale for coverage Asthma: Duonebs q4h eliecer Duonebs q2h prn Advair 1 puff INH rq12 HTN: Zestril 10 mg po qd Hypothyroidism: Levothryoxine 112 mc po qd Prophylactic Measures: GI: Pepcid 20 mg po qd DVT: Lovenox 30 mg sc qd, SCDs held due to b/l lower extremity edema, pending venous dopplers Colace 100 mg po prn for constipation Percocet prn for pain
[2016-08-10 20:34] LABS: INHIBIN B < 10 pg/mL
== END 2016-08-10 09:25 | disposition home or self-care (01) | DRG 358 ==
LOC: C.ER 01:36 → C.9E 14:40 → C.3T 15:12 → C.9I 08-05 17:03 → C.4M 08-07 17:55
PROVIDERS: ADMIT Obstetrics & Gynecology; ATTEND Obstetrics & Gynecology
PROC: 0UB10ZZ Excision of Left Ovary, Open Approach (ICD-10-PCS; principal; 2016-08-05 14:30)
DX: N83.202 Unspecified ovarian cyst, left side (principal); E87.6 Hypokalemia; I10 Essential (primary) hypertension; N73.6 Female pelvic peritoneal adhesions (postinfective); K66.0 Peritoneal adhesions (postprocedural) (postinfection); F41.9 Anxiety disorder, unspecified; E03.9 Hypothyroidism, unspecified; G47.33 Obstructive sleep apnea (adult) (pediatric); E78.5 Hyperlipidemia, unspecified; J45.909 Unspecified asthma, uncomplicated; Z87.891 Personal history of nicotine dependence; E11.9 Type 2 diabetes mellitus without complications; Z79.4 Long term (current) use of insulin

== ENCOUNTER 2016-08-14 13:02 | Emergency (ER) | payer BC, MEDICAID ==
[2016-08-14 13:21] VITALS: BMI 25.4
[2016-08-14 13:29] VITALS: BP 123/82; PULSE 87; RESP 18; TEMP 97.8; O2SAT 100
--- NOTE | 2016-08-14 13:34 | C.PDOC ---
History Of Present Illness 46 year old female presents to the ER requesting a staple removal. Patient reports having a ovarian cyst removed on 08/05/16. Patient was instructed to come to clinic for staple removal today but was unable to get appointment. Patient notes some pain to area with coughing. Patient denies any any fever, chills, discharge, redness, or any other complaints. Time Seen by Provider: 08/14/16 13:28 Chief Complaint (Nursing): Suture/Staple Removal History Per: Patient History/Exam Limitations: no limitations Onset/Duration Of Symptoms: Other (A few weeks) Current Symptoms Are (Timing): Still Present Severity: Mild Recent travel outside of the [place]: No Past Medical History Reviewed: Historical Data, Nursing Documentation, Vital Signs Vital Signs: Last Vital Signs Temp 97.8 F 08/14/16 13:22 Pulse 87 08/14/16 13:22 Resp 18 08/14/16 13:22 BP 123/82 08/14/16 13:22 Pulse Ox 100 08/14/16 14:50 - Medical History PMH: Asthma, HTN, Hypercholesterolemia, Hypothyroidism, Pneumonia (Stated she had it 2yrs ago), Sleep Apnea (on CPap) - [facility] Procedures EXCISION OF LEFT OVARY, OPEN APPROACH (08/04/16) Family History: States: Unknown Family Hx - Social History Hx Alcohol Use: Yes Hx Substance Use: No - Immunization History Hx Tetanus Toxoid Vaccination: Yes Hx Influenza Vaccination: No Hx Pneumococcal Vaccination: No Review Of Systems Except As Marked, All Systems Reviewed And Found Negative. Constitutional: Negative for: Fever, Chills Respiratory: Positive for: Cough Gastrointestinal: Positive for: Other (Pain to linear alba). Negative for: Nausea, Vomiting, Diarrhea Skin: Positive for: Other (Staple removal. No discharge. No redness.) Physical Exam - Physical Exam Appears: Non-toxic, No Acute Distress Skin: Other (16 zenon along linear alba. No erythema. No discharge. Mild tenderness.) Head: Atraumatic, Normacephalic Eye(s): bilateral: Normal Inspection Nose: Normal Oral Mucosa: Moist Cardiovascular: Rhythm Regular Respiratory: No Accessory Muscle Use Gastrointestinal/Abdominal: Soft, No Tenderness, No Guarding, No Rebound Extremity: Normal ROM, No Tenderness Neurological/Psych: Oriented x3, Normal Speech, Normal Cognition ED Course And Treatment O2 Sat by Pulse Oximetry: 100 Progress Note: Case discussed with Dr. Tian (OB independent marketing consultant) who instructs removal and follow up with clinic. Mills were removed. Steri strip applied. Patient denies any other complaints at this time. Patient instructed to follow up with clinic within 1-2 days. Disposition - Disposition Referrals: [facility] [Outside] Disposition: HOME/ ROUTINE Disposition Time: 13:56 Condition: STABLE Additional Instructions: Keep area clean and dry. follow up with clinic in 1-2 days. Instructions: Acute Wound Care (ED) - Clinical Impression Clinical Impression: Removal of suture - Scribe Statement The provider has reviewed the documentation as recorded by the Scribe Sai Morley All medical record entries made by the Scribe were at my direction and personally dictated by me. I have reviewed the chart and agree that the record accurately reflects my personal performance of the history, physical exam, medical decision making, and the department course for this patient. I have also personally directed, reviewed, and agree with the discharge instructions and disposition.
== END 2016-08-14 14:05 | disposition home or self-care (01) ==
LOC: C.ER 13:02
DX: Z48.02 Encounter for removal of sutures (principal)